=== PATIENT | male | born 1950 | race Caucasian/White ===

== ENCOUNTER → 2018-03-09 07:08 | Outpatient (CLI) | payer BC, SELFPAY ==
[2018-03-09 10:43] LABS: ALB/GLOB Ratio 0.9 RATIO (0.9-2.4); AST(SGOT) 19 U/L (15-37); Alanine Aminotransfer ALT/SGPT 30 U/L (16-61); Albumin, Serum 3.5 g/dL (3.2-5.0); Alkaline Phosphatase 72 U/L (45-117); Anion Gap 9 (5-15); BUN 23 mg/dL (7-18); BUN/Creat Ratio 17.8 RATIO (10-20); Calcium,Total 8.3 mg/dL (8.5-10.1); Chloride 104 mmol/L (98-107); Cholesterol 225 mg/dL (200); Creatinine, Serum 1.29 mg/dL (0.70-1.30); EST Glomerular Filtration Rate 59 mL/min (>60); Est Glom Filt Rate - Afr Amer 71 mL/min (>60); Globulin 3.7 g/dL (2.2-4.2); Glucose 98 mg/dL (74-106); High Density Lipoprotein 58 mg/dL; PSA,Total - Annual Screen 1.54 ng/mL (0.00-4.00); Potassium 3.6 mmol/L (3.5-5.1); Protein, Total 7.2 g/dL (6.4-8.2); Sodium Level 138 mmol/L (136-145); Triglycerides 183 mg/dL; Very Low Density Lipoprotein 37 mg/dL (5-40)
== END ==
PROVIDERS: Family Provider Family Medicine; PCP Family Medicine; Referring Provider Family Medicine; Visit Provider Family Medicine
DX: E78.5 Hyperlipidemia, unspecified (principal); Z12.5 Encounter for screening for malignant neoplasm of prostate
CPT/HCPCS: 36415; 80053; 80061; 84153; G0103

== ENCOUNTER → 2018-07-12 | Outpatient (CLI) | payer BC, SELFPAY ==
[2018-07-12 10:13] LABS: Hematocrit 34.8 % (40-54); Hemoglobin 11.4 g/dl (13.0-16.5); Mean Corp Hgb Conc 32.8 g/gl (32-36); Mean Corpuscular Hgb 31.6 pg (27.0-32.0); Mean Corpuscular Volume 96.4 fL (80-94); Mean Platelet Vol. 10.2 fl (6.2-12.0); Platelet Count 356 K/mm3 (150-450); RBC Distribution Width CV 13.9 % (11.6-14.6); RBC Distribution Width SD 47.6 fl (35.1-43.9); Red Blood Count 3.61 M/mm3 (4.6-6.2); White Blood Count 7.7 K/mm3 (4.4-11.0)
[2018-07-12 10:14] LABS: Scan Indicated on CBC? Y/N NO
[2018-07-12 10:33] LABS: Anion Gap 9 (5-15); BUN 24 mg/dL (7-18); BUN/Creat Ratio 22.4 RATIO (10-20); Calcium,Total 8.7 mg/dL (8.5-10.1); Chloride 102 mmol/L (98-107); Creatinine, Serum 1.07 mg/dL (0.70-1.30); EST Glomerular Filtration Rate 73 mL/min (>60); Est Glom Filt Rate - Afr Amer 88 mL/min (>60); Glucose 89 mg/dL (74-106); Potassium 3.9 mmol/L (3.5-5.1); Sodium Level 139 mmol/L (136-145)
== END | disposition home or self-care (01) ==
PROVIDERS: Family Provider Family Medicine; PCP Family Medicine
DX: Z87.19 Personal history of other diseases of the digestive system (principal); Z86.2 Personal history of diseases of the blood and blood-forming organs and certain disorders involving the immune mechanism
CPT/HCPCS: 36415; 80048; 85027

== ENCOUNTER → 2019-05-25 07:07 | Outpatient (CLI) | payer BC, SELFPAY ==
[2019-05-25 10:18] LABS: Hematocrit 45.5 % (40-54); Hemoglobin 14.9 g/dL (13.0-16.5); Mean Corp Hgb Conc 32.7 g/dL (32-36); Mean Corpuscular Hgb 31.8 pg (27.0-32.0); Mean Corpuscular Volume 97.2 fL (80-94); Mean Platelet Vol. 11.5 fl (6.2-12.0); Platelet Count 238 K/mm3 (150-450); RBC Distribution Width CV 13.2 % (11.6-14.6); RBC Distribution Width SD 46.7 fl (35.1-43.9); Red Blood Count 4.68 M/mm3 (4.6-6.2); White Blood Count 7.6 K/mm3 (4.4-11.0)
[2019-05-25 10:39] LABS: AST(SGOT) 13 U/L (15-37); Alanine Aminotransfer ALT/SGPT 24 U/L (16-61); Albumin, Serum 3.6 g/dL (3.2-5.0); Alkaline Phosphatase 76 U/L (45-117); Anion Gap 6 (5-15); BUN 20 mg/dL (7-18); BUN/Creat Ratio 18.3 RATIO (10-20); Calcium,Total 8.5 mg/dL (8.5-10.1); Chloride 105 mmol/L (98-107); Cholesterol 156 mg/dL (200); Creatinine, Serum 1.09 mg/dL (0.70-1.30); EST Glomerular Filtration Rate 71 mL/min (>60); Est Glom Filt Rate - Afr Amer 86 mL/min (>60); Globulin 3.7 g/dL (2.2-4.2); Glucose 103 mg/dL (74-106); High Density Lipoprotein 57 mg/dL; PSA,Total - Annual Screen 1.35 ng/mL (0.00-4.00); Potassium 3.8 mmol/L (3.5-5.1); Protein, Total 7.3 g/dL (6.4-8.2); Sodium Level 140 mmol/L (136-145); Triglycerides 114 mg/dL; Very Low Density Lipoprotein 23 mg/dL (5-40)
== END ==
PROVIDERS: PCP Family Medicine; Referring Provider Family Medicine; Visit Provider Family Medicine
DX: I10 Essential (primary) hypertension (principal); Z12.5 Encounter for screening for malignant neoplasm of prostate; E78.5 Hyperlipidemia, unspecified; Z87.19 Personal history of other diseases of the digestive system
CPT/HCPCS: 36415; 80053; 80061; 84153; 85027; G0103

== ENCOUNTER → 2020-06-14 05:44 | Outpatient (CLI) | payer BC, SELFPAY ==
--- NOTE | 2020-06-14 10:07 | STRESSREP_ITS ---
Stress Test Report Date: 06-14-2020 Procedure: Exercise tolerance test/imaging study Indications: This of breath/dyspnea on exertion; fatigue Consent: Per the patient Procedure: The patient exercised on a Brayden protocol for 6 minutes completing Stage II achieving a peak heart rate of 129 bpm (86% predicted maximal heart rate) with a peak blood pressure 194/68 mmHg and a peak MET capacity of 7 METs. The baseline ECG demonstrated. The peak exercise ECG demonstrated somatic/motion artifact with no obvious ECG changes. There was a relatively rare PVC during exercise and recovery and a relatively rare PAC in recovery. The functional capacity was considered average. There was no complaint of chest discomfort during exercise or recovery. The examination was discontinued secondary to dyspnea. Impression: 1. Technically adequate (percent predicted maximal heart rate greater than 85%) exercise tolerance test 2. Peak exercise ECG with somatic/motion artifact with no obvious ECG changes 3. There was a relatively rare PVC during exercise and recovery and a relatively rare PAC in recovery 4. Nuclear images pending Myocardial perfusion imaging study: Technique: The patient was injected with 11.9 mCi of technetium 99m Cardiolite and subsequently rest SPECT Cardiolite nuclear imaging was obtained in the horizontal long, vertical long, and short axis views. The patient exercised on a Brayden protocol for 6 minutes completing Stage II achieving a peak heart rate of 129 bpm (86% predicted maximal heart rate) with a peak blood pressure 194/68 mmHg and a peak MET capacity of 7 METs. The patient was injected with 34.6 mCi of technetium 99m Cardiolite and subsequently stress SPECT Cardiolite nuclear imaging was obtained in the horizontal long, vertical long, and short axis views. A gated Cardiolite study at peak stress was not obtained. Interpretation: Rest and stress SPECT Cardiolite nuclear imaging status post realignment, no rmalization, and attenuation correction, demonstrates the appearance of relative uniform tracer uptake and myocardial perfusion appearing within normal limits. The gated Cardiolite study was not obtained. Impression: 1. Rest and stress SPECT Cardiolite nuclear imaging demonstrate relative uniform tracer uptake and myocardial perfusion appearing within normal limits. 2. The gated Cardiolite study was not obtained. This note was generated with CloSysation software. It may contain incorrect words, spelling, and punctuation that were not noted in checking the note before signing.
== END ==
PROVIDERS: PCP Family Medicine; Referring Provider Family Medicine; Visit Provider Family Medicine
DX: R06.00 Dyspnea, unspecified (principal)
CPT/HCPCS: 78452; 93017; A9500

== ENCOUNTER → 2020-09-17 07:20 | Outpatient (CLI) | payer BC, SELFPAY ==
[2020-09-17 10:26] LABS: AST(SGOT) 19 U/L (15-37); Alanine Aminotransfer ALT/SGPT 31 U/L (16-61); Albumin, Serum 3.7 g/dL (3.2-5.0); Alkaline Phosphatase 68 U/L (45-117); Anion Gap 4 (5-15); BUN 19 mg/dL (7-18); BUN/Creat Ratio 19.3 RATIO (10-20); Calcium,Total 8.6 mg/dL (8.5-10.1); Chloride 106 mmol/L (98-107); Cholesterol 152 mg/dL (200); Creatinine, Serum 0.98 mg/dL (0.70-1.30); EST Glomerular Filtration Rate 80 mL/min (>60); Est Glom Filt Rate - Afr Amer 97 mL/min (>60); Globulin 3.8 g/dL (2.2-4.2); Glucose 89 mg/dL (74-106); High Density Lipoprotein 43 mg/dL; PSA,Total - Annual Screen 1.15 ng/mL (0.00-4.00); Potassium 3.8 mmol/L (3.5-5.1); Protein, Total 7.5 g/dL (6.4-8.2); Sodium Level 138 mmol/L (136-145); Triglycerides 124 mg/dL; Very Low Density Lipoprotein 25 mg/dL (5-40)
== END ==
PROVIDERS: PCP Family Medicine; Referring Provider Family Medicine; Visit Provider Family Medicine
DX: E78.5 Hyperlipidemia, unspecified (principal); N40.0 Benign prostatic hyperplasia without lower urinary tract symptoms
CPT/HCPCS: 36415; 80053; 80061; 84153; G0103

== ENCOUNTER → 2020-10-31 07:58 | Outpatient (CLI) | payer BC, SELFPAY ==
--- NOTE | 2020-10-31 16:27 | PFTCOMP_ITS ---
COMPLETE PULMONARY FUNCTION TEST INTERPRETATION Brief HPI: Patient is a 70 year old male, currently under the care of Dr. Saenz, who presents to [facility] for complete pulmonary function tests secondary to diagnosis of bradycardia. Respiratory therapist reports good effort and reproducible results. Interpretation: Forced expiration spirometry shows a mild large airways obstructive ventilatory defect with an FEV1 of 100% predicted. There is no significant bronchodilator response by strict ATS criteria. Spirograms are of good quality and plateau slowly, indicating slowly emptying areas of the lungs. The respiratory flow volume loop shows decreased expiratory flow rates at all lung volumes consistent with airway obstruction. Lung volumes by body plethysmography show an elevated total lung capacity at 6.96 L, 121% predicted. All other lung volumes are increased symmetrically. Diffusion capacity by carbon monoxide is elevated at 123% predicted. The airway resistance is normal. No previous pulmonary function tests were available for review. Impression: Technically an irreversible mild large airways obstructive ventilatory defect. However, patient barely misses reversibility by ATS criteria. Could consider a bronchoprovocation study if asthma is suspected.
== END ==
PROVIDERS: PCP Family Medicine; Referring Provider Family Medicine; Visit Provider Family Medicine
DX: R00.1 Bradycardia, unspecified (principal)
CPT/HCPCS: 94060; 94726; 94729

== ENCOUNTER → 2021-07-05 | Outpatient (CLI) | payer BC, SELFPAY ==
[2021-07-05 10:35] LABS: Hematocrit 48.4 % (40-54); Hemoglobin 16.6 g/dL (13.0-16.5); Mean Corp Hgb Conc 34.3 g/dL (32-36); Mean Corpuscular Hgb 33.1 pg (27.0-32.0); Mean Corpuscular Volume 96.4 fL (80-94); Mean Platelet Vol. 11.2 fl (6.2-12.0); Platelet Count 313 K/mm3 (150-450); RBC Distribution Width CV 13.6 % (11.6-14.6); RBC Distribution Width SD 48.3 fl (35.1-43.9); Red Blood Count 5.02 M/mm3 (4.6-6.2); White Blood Count 5.9 K/mm3 (4.4-11.0)
[2021-07-05 10:52] LABS: Estradiol 35.3 pg/mL; Free T3 2.5 pg/mL (2.18-3.98); T4 Free Direct 0.72 ng/dL (0.76-1.46); Thyroid Stim Hormone (TSH) 1.82 uIU/mL (0.358-3.74)
[2021-07-05 13:41] LABS: T4 Total, Thyroxin 7.1 ug/dL (4.5-12.1)
[2021-07-10 11:09] LABS: Testosterone, Free 19.44 ng/dL (5.00-21.00)
[2021-07-10 16:53] LABS: Testosterone, % Free 1.88 % (1.50-4.20); Testosterone, Total 1034 ng/dL (264-916)
== END | disposition home or self-care (01) ==
PROVIDERS: PCP Family Medicine
DX: R68.82 Decreased libido (principal); E07.9 Disorder of thyroid, unspecified; E29.1 Testicular hypofunction; R53.83 Other fatigue
CPT/HCPCS: 36415; 82670; 84402; 84403; 84436; 84439; 84443; 84481; 85027

== ENCOUNTER → 2021-08-07 | Outpatient (CLI) | payer BC, SELFPAY ==
--- NOTE | 2021-08-07 16:49 | RAD_ITS ---
STUDY: X-RAY - LUMBOSACRAL SPINE REASON FOR EXAM: Male, 70 years old. PAIN TECHNIQUE: 6 view(s) of the lumbosacral spine were obtained. COMPARISON: 11/02/2015 FINDINGS: Normal lumbar lordosis. There is no substantial scoliosis. 2 mm of anterolisthesis of L4 and L5 which is unchanged on the flexion and extension views. Normal vertebral bodies and endplates. Normal disc space heights. Facet hypertrophy in the lower lumbar spine. Normal bilateral sacral ala, sacroiliac joints, and visualized sacrum. Normal visualized soft tissue structures. RAD/L/S Spine w Bend Min 6 Vw IMPRESSION: Degenerative disc disease with 2 mm of anterolisthesis of L4 on L5 which is unchanged on the flexion and extension views. Electronically Signed: Jesus Chris MD at 17:14 EDT ,
== END | disposition home or self-care (01) ==
LOC: MTRAD 16:48
PROVIDERS: PCP Family Medicine; Referring Provider Family Medicine; Visit Provider Family Medicine
DX: M54.9 Dorsalgia, unspecified (principal)
CPT/HCPCS: 72114

== ENCOUNTER 2021-08-17 08:10 | Emergency (ER) | payer BC, SELFPAY ==
[2021-08-17 08:11] VITALS: BP 151/78; PULSE 84; RESP 16; TEMP 36.8; O2SAT 99; BMI 34.3
[2021-08-17 08:22] VITALS: TEMP 37.2
--- NOTE | 2021-08-17 08:45 | EX.ED.DYSGE1 ---
HPI History of Present Illness Chief Complaint: Weakness Narrative Narrative: This is a 70-year-old male presenting because he was told he was in third-degree heart block. He is currently wearing a Holter monitor because his heart rate goes into the 30s and 40s when he sleeps. He states he noted this was a problem years ago when he was admitted to [facility] with a GI bleed. They noted when he fell asleep his heart rate went low. They were supposed to set him up with a Holter monitor but it never occurred. Patient states he bought a home pulse oximeter which was showing his heart rate was low and then when he spoke with Dr. Cooley he decided to wear Holter monitor. He states he wore this a couple of weeks ago for 7 days and he just got the results and was told to come to the ER last night however he was too busy working and decided to come this morning. He states he does not have any chest pain and he states that he only gets short of breath when he works too hard. Not had any fevers or coughs. He is not lightheaded. He states he feels otherwise well. He denies cardiac history and states he had a stress test 2 years ago which was normal. [facility] Medical History HLD (hyperlipidemia) HTN (hypertension) Prostate enlargement Home Medications amlodipine 10 mg tablet 10 mg PO DAILY 08/17/21 [History Last Taken Unknown] atorvastatin 20 mg tablet 20 mg PO DAILY 08/17/21 [History Last Taken Unknown] finasteride 5 mg tablet 5 mg PO DAILY 08/17/21 [History Last Taken Unknown] hydrochlorothiazide 25 mg tablet 25 mg PO DAILY 08/17/21 [History Last Taken Unknown] losartan 100 mg tablet 100 mg PO DAILY 08/17/21 [History Last Taken Unknown] testosterone 75 mg implant pellet 75 mg implant QMONTH 08/17/21 [History Last Taken Unknown] Allergy/AdvReac Type Severity Reaction Status Date / Time No Known Allergies Allergy Verified 08/17/21 08:10 Social History Smoking Status: Light Smoker (<10/day) ROS ROS ED Constitutional Constitutional ED: Denies chills, subjective or sweats Eyes Eyes: Denies blurry vision or change in vision ENT ENT ED: Denies rhinorrhea or sore throat Cardiovascular Cardiovascular: Denies chest pain or palpitations Respiratory/Chest Respiratory/Chest: Denies cough or dyspnea Gastrointestinal Gastrointestinal: Denies abdominal pain or constipation Genitourinary Genitourinary ED: Denies dysuria or hematuria Neurologic Neurologic: Denies headache(s) or paresthesias Psychiatric Psychiatric: Denies anxiety or depression Endocrine Endocrinology: Denies cold intolerance or heat intolerance EXAM Physical Exam Const Vital Signs: 08/17/21 08:11 08/17/21 08:22 08/17/21 08:36 Temperature 98.3 F 98.9 F Temperature Source Temporal Temporal Pulse Rate 84 Respiratory Rate 16 Respiratory Effort Normal Non-Labored Blood Pressure 151/78 H Blood Pressure Mean 102 Pulse Ox 99 Oxygen Delivery Method Room Air 08/17/21 08:55 08/17/21 11:01 Temperature 98.7 F Temperature Source Temporal Pulse Rate 78 Respiratory Rate 16 Respiratory Effort Blood Pressure 142/78 H Blood Pressure Mean 99 Pulse Ox 97 98 Oxygen Delivery Method Room Air Room Air Positive well nourished General Appearance ED: NAD; Negative for pallor HEENT Reports moist mucous membranes Negative for trauma Eyes PERRL and EOMs intact bilaterally General Eye ED: Negative for pale conjunctiva or scleral icterus Chest Wall inspection of chest normal Resp normal respiratory effort and clear to auscultation bilaterally Auscultation: Negative for rales, rhonchi or wheezes Cardio regular rate and regular rhythm GI normal to inspection, nondistended, normoactive bowel sounds Extremity General Extremety ED: Negative for edema or tenderness General Extremity: Negative for edema Neuro oriented x3 and CN's II-XII intact bilaterally Sensorium / Orientation: alert and orientation impaired Motor Exam: strength 5/5 throughout Psych mental status grossly normal Skin no rashes or lesions noted General Skin Exam: Negative for jaundice or pallor MDM MDM MDM Narrative Medical decision making narrative: 70-year-old male presenting out of concern for possible third-degree heart block on his Holter monitor from a couple weeks ago. He is not describing to me any weakness, shortness of breath, chest pain, lightheadedness, near syncopal events. His CBC and BMP are unremarkable. He has initial high sensitive troponin of 4 and another 1 at 5 2 hours apart. His EKG is sinus rhythm with a ventricular rate of 84 bpm with a first-degree AV block with a MI interval of 268. QTc 434. Chest x-ray on my interpretation shows no acute cardiopulmonary process and the radiologist does agree. I spoke to his primary care doctor who stated that he did have a note from somebody stating that they believed he was going into second and third-degree heart block at times although the patient has not reported to me any times when he felt lightheaded, weak, near syncopal or had any chest pain. I spoke with Dr. Goins regarding the patient and we went through his medicine list and his history together. She felt that he did not need to be admitted to the hospital and that there were other reasons that could possibly affect his Holter monitor especially if it was happening at night. She states that he will need a stress test and an echocardiogram and a cardiology follow-up and took his name and number to pass along to Dr. Manuel for follow-up next week. He was amenable to this. He was given return precautions. Patient stable for discharge. Impression: 1. First-degree AV block Lab Data Labs: Laboratory Results - last 24 hr 08/17/21 08/17/21 08/17/21 08:30 08:30 11:20 WBC 7.4 RBC 5.08 Hgb 16.0 Hct 47.4 MCV 93.3 MCH 31.5 MCHC 33.8 RDW Std Deviation 43.7 RDW Coeff of Dulce 12.7 Plt Count 221 MPV 11.2 Immature Gran % (Auto) 0.300 Neut % (Auto) 60.8 Lymph % (Auto) 22.2 [place] % (Auto) 10.5 H Eos % (Auto) 5.4 H Baso % (Auto) 0.8 Absolute Neuts (auto) 4.5 Absolute Lymphs (auto) 1.63 Nucleated RBC % 0 Sodium 139 Potassium 3.7 Chloride 108 H Carbon Dioxide 25.0 Anion Gap 6 BUN 31 H Creatinine 0.99 Estim Creat Clear Calc 60.86 Est GFR (MDRD) Af Amer 95 Est GFR (MDRD) Non-Af 79 BUN/Creatinine Ratio 31.3 H Glucose 103 Calcium 8.6 Troponin I High Sens 4 5 Radiography Diagnostic Testing: Clinical Impression(s) from Imaging Studies Chest X-Ray 08/17/21 08:54 IMPRESSION: Mild left basilar atelectasis. Electronically Signed: Annie Keita MD at 9:16 EDT , Discharge Plan Triage Chief Complaint: Weakness ED Provider: Blayne Sosa Dx/Rx/DC Orders Instructions: Heart Block 1st Degree Prescriptions: No Action atorvastatin 20 mg Tablet 20 mg PO DAILY testosterone 75 mg Pellet 75 mg implant QMONTH amlodipine 10 mg Tablet 10 mg PO DAILY hydrochlorothiazide 25 mg Tablet 25 mg PO DAILY losartan 100 mg Tablet 100 mg PO DAILY finasteride 5 mg Tablet 5 mg PO DAILY Primary Care Provider: Jesus Cooley Referrals: James Manuel MD [STAFF PHYSICIAN] - As soon as possible Jesus Cooley MD [Primary Care Provider] - Disposition Disposition: Home, Self Care
--- NOTE | 2021-08-17 08:54 | EKG12_ITS ---
Test Reason : IRREGULAR HEARTBEAT Blood Pressure : / mmHG Vent. Rate : 084 BPM Atrial Rate : 084 BPM P-R Int : 268 ms QRS Dur : 084 ms QT Int : 368 ms P-R-T Axes : 043 050 025 degrees QTc Int : 434 ms Sinus rhythm with 1st degree A-V block Low voltage QRS Borderline ECG Confirmed by CIARAN MARCANO, TRAMAINE ([id number]), field map editor CORIE VALERA ([id number]) on 08/19/2021 12:47:21 PM Referred By: RAJIV Confirmed By:TRAMAINE WAGONER MD
--- NOTE | 2021-08-17 08:54 | RAD_ITS ---
HISTORY: chest pain. TECHNIQUE: XR Chest 1 View. COMPARISON: 08/07/2014. FINDINGS: CARDIOMEDIASTINAL BORDERS: Cardiac silhouette within normal limits in size. Mediastinal contour unremarkable. LUNGS: Minimal linear opacity in the left lung base. PLEURA: No pleural effusion or pneumothorax seen. OSSEOUS STRUCTURES: Unremarkable. RAD/Chest 1 View (Portable) IMPRESSION: Mild left basilar atelectasis. Electronically Signed: Annie Keita MD at 9:16 EDT ,
[2021-08-17 08:55] VITALS: O2SAT 97
[2021-08-17 09:07] LABS: Absolute Lymphocyte Count 1.63 X10^3/uL (0.83-4.51); Absolute Neutrophil Count 4.5 X10^3/uL (2.0-7.7); Basophil# 0.06 X10^3/uL; Basophil% 0.8 % (0-1); Eosinophils% 5.4 % (0-5); Hematocrit 47.4 % (40-54); Lymphocyte # 1.63 X10^3/ul (0.83-4.51); Lymphocyte % 22.2 % (19-41); Mean Corp Hgb Conc 33.8 g/dL (32-36); Mean Corpuscular Hgb 31.5 pg (27.0-32.0); Mean Corpuscular Volume 93.3 fL (80-94); Mean Platelet Vol. 11.2 fl (6.2-12.0); Monocyte# 0.77 X10^3/uL; Monocyte% 10.5 % (0-10); NRBC Flagged by Analyzer 0 % (0-5); Neutrophil # 4.47 X10^3/uL (2.7-7.7); Neutrophil % 60.8 % (47-70); Platelet Count 221 K/mm3 (150-450); RBC Distribution Width CV 12.7 % (11.6-14.6); RBC Distribution Width SD 43.7 fl (35.1-43.9); Red Blood Count 5.08 M/mm3 (4.6-6.2); White Blood Count 7.4 K/mm3 (4.4-11.0)
[2021-08-17 09:23] LABS: Anion Gap 6 (5-15); BUN 31 mg/dL (7-18); BUN/Creat Ratio 31.3 RATIO (10-20); Calcium,Total 8.6 mg/dL (8.5-10.1); Chloride 108 mmol/L (98-107); Creatinine, Serum 0.99 mg/dL (0.70-1.30); EST Glomerular Filtration Rate 79 mL/min (>60); Est Glom Filt Rate - Afr Amer 95 mL/min (>60); Estimated Creatinine Clearance 60.86 ml/min; Glucose 103 mg/dL (74-106); Potassium 3.7 mmol/L (3.5-5.1); Sodium Level 139 mmol/L (136-145); Troponin-I HS (w/2H Reflex) 4 pg/mL (3.0-78.0)
[2021-08-17 11:00] LABS: Reflex Troponin-HS? (from REC) Y
[2021-08-17 11:01] VITALS: BP 142/78; PULSE 78; RESP 16; TEMP 37.1; O2SAT 98
[2021-08-17 11:40] LABS: Troponin-I HS 5 pg/mL (3.0-78.0)
[2021-08-17 12:22] VITALS: BP 147/82; PULSE 84; RESP 16; O2SAT 96
== END 2021-08-17 12:22 | disposition home or self-care (01) ==
PROVIDERS: Emergency Provider Student in an Organized Health Care Education/Training Program; PCP Family Medicine; Visit Provider Student in an Organized Health Care Education/Training Program
DX: I44.0 Atrioventricular block, first degree (principal); E78.5 Hyperlipidemia, unspecified; R53.1 Weakness; I10 Essential (primary) hypertension; F17.200 Nicotine dependence, unspecified, uncomplicated
CPT/HCPCS: 71045; 80048; 84484; 85025; 93005; 99284; A4216

== ENCOUNTER → 2021-08-30 | Outpatient (CLI) | payer BC, SELFPAY ==
[2021-08-30 10:09] LABS: Hematocrit 50.5 % (40-54); Hemoglobin 16.8 g/dL (13.0-16.5); Mean Corp Hgb Conc 33.3 g/dL (32-36); Mean Corpuscular Hgb 31.7 pg (27.0-32.0); Mean Corpuscular Volume 95.3 fL (80-94); Mean Platelet Vol. 11.6 fl (6.2-12.0); Platelet Count 245 K/mm3 (150-450); RBC Distribution Width CV 13.3 % (11.6-14.6); RBC Distribution Width SD 46.5 fl (35.1-43.9); White Blood Count 7.1 K/mm3 (4.4-11.0)
[2021-08-30 10:35] LABS: Microalbumin,Random Urine 48.2 mg/L (NO RANGE EST.)
[2021-08-30 10:37] LABS: AST(SGOT) 14 U/L (15-37); Alanine Aminotransfer ALT/SGPT 19 U/L (16-61); Albumin, Serum 3.6 g/dL (3.2-5.0); Alkaline Phosphatase 66 U/L (45-117); Anion Gap 10 (5-15); BUN 18 mg/dL (7-18); Calcium,Total 8.6 mg/dL (8.5-10.1); Chloride 106 mmol/L (98-107); Cholesterol 163 mg/dL (200); EST Glomerular Filtration Rate 78 mL/min (>60); Est Glom Filt Rate - Afr Amer 94 mL/min (>60); Free T3 2.4 pg/mL (2.18-3.98); Globulin 3.5 g/dL (2.2-4.2); Glucose 83 mg/dL (74-106); High Density Lipoprotein 44 mg/dL; Potassium 3.5 mmol/L (3.5-5.1); Protein, Total 7.1 g/dL (6.4-8.2); Sodium Level 139 mmol/L (136-145); T4 Free Direct 0.76 ng/dL (0.76-1.46); Thyroid Stim Hormone (TSH) 4.29 uIU/mL (0.358-3.74); Triglycerides 103 mg/dL; Very Low Density Lipoprotein 21 mg/dL (5-40)
== END | disposition home or self-care (01) ==
LOC: MTLAB 07:13
PROVIDERS: PCP Family Medicine; Referring Provider Family Medicine; Visit Provider Family Medicine
DX: Z00.00 Encounter for general adult medical examination without abnormal findings (principal); R79.89 Other specified abnormal findings of blood chemistry; E78.5 Hyperlipidemia, unspecified
CPT/HCPCS: 36415; 80053; 80061; 82043; 84403; 84439; 84443; 84481; 85027

== ENCOUNTER → 2021-10-18 | Outpatient (CLI) | payer BC, SELFPAY ==
--- NOTE | 2021-10-18 10:12 | ECHOCS_ITS ---
Reason For Study: MURMUR Procedure This was a 2D Doppler, Color Flow transthoracic echocardiogram. Exam performed in department. Left Ventricle Normal LV size. Left ventricular systolic function is normal. The estimated ejection fraction is 60 %. Stage 1 diastolic dysfunction. No regional wall motion abnormalities noted. Right Ventricle Normal RV size. Normal systolic function. Atria Normal left atrium. Normal right atrium. Mitral Valve Normal mitral valve. Tricuspid Valve Normal tricuspid valve. Aortic Valve The aortic valve is not well visualized. Pulmonic Valve Normal pulmonic valve. Great Vessels Normal aortic root. The pulmonary artery is normal size. Normal inferior vena cava. Pericardium/Pleural No pericardial effusion. MMode/2D Measurements & Calculations LVIDd: 3.2 cm IVSd: 1.3 cm Ao root diam: 3.7 cm LVIDs: 2.3 cm LVPWd: 1.4 cm RVDd: 4.6 cm FS: 27.3 % LAV(MOD-bp): 43.5 ml LVAd ap4: 33.5 cm2 SV(MOD-sp4): 57.6 ml LAV(MOD-bp) Indexed: 21.2 ml/m2 LVLd ap4: 9.9 cm LAV(MOD-sp2): 42.2 ml EDV(MOD-sp4): 93.1 ml LAV(MOD-sp4): 40.8 ml EDV(sp4-el): 96.4 ml LVAs ap4: 18.7 cm2 LVLs ap4: 8.3 cm ESV(MOD-sp4): 35.5 ml ESV(sp4-el): 35.6 ml EF(MOD-sp4): 61.9 % EF(sp4-el): 63.1 % SV(sp4-el): 60.8 ml LA A4 area: 16.8 cm2 LA dimension(2D): 4.3 cm RA A4 area: 17.3 cm2 Time Measurements MV dec time: 0.19 sec Doppler Measurements & Calculations MV E max nick: 74.1 cm/sec Lat Peak E' Nick: 14.5 cm/sec Med Peak E' Nick: 10.5 cm/sec MV A max nick: 75.3 cm/sec E/E' lat: 5.1 E/E' med: 7.1 MV E/A: 0.98 MV V2 max: 77.1 cm/sec Ao V2 max: 122.8 cm/sec MV max P.4 mmHg MV dec slope: 401.3 cm/sec2 Ao max P.1 mmHg MV V2 mean: 49.1 cm/sec Ao V2 mean: 87.1 cm/sec MV mean P.1 mmHg Ao mean P.4 mmHg MV V2 VTI: 23.9 cm Ao V2 VTI: 26.6 cm LV V1 max: 80.3 cm/sec PA V2 max: 101.1 cm/sec LV V1 max P.6 mmHg LV V1 mean P.6 mmHg LV V1 mean: 59.8 cm/sec LV V1 VTI: 18.7 cm ECHO/Echo Complete W/ Contrast Interpretation Summary Normal LV size. Left ventricular systolic function is normal. The estimated ejection fraction is 60 %. Stage 1 diastolic dysfunction. Contrast injection was performed. Ordering Physician: Jaems Manuel Referring Physician: James Manuel Performed By: Emerald Ogden RCS
== END | disposition home or self-care (01) ==
PROVIDERS: PCP Family Medicine; Referring Provider Internal Medicine Cardiovascular Disease; Visit Provider Internal Medicine Cardiovascular Disease
DX: I44.1 Atrioventricular block, second degree (principal); I10 Essential (primary) hypertension
CPT/HCPCS: 93225; 93226; 93306; Q9957; A4216; C8929

== ENCOUNTER → 2021-10-29 | Outpatient (CLI) | payer BC, SELFPAY ==
[2021-10-29 10:55] LABS: PSA,Total - Annual Screen 2.02 ng/mL (0.00-4.00)
[2021-10-31 11:16] LABS: T4 Free Direct 0.71 ng/dL (0.76-1.46); Thyroid Stim Hormone (TSH) 4.09 uIU/mL (0.358-3.74)
== END | disposition home or self-care (01) ==
LOC: MTLAB 07:34
PROVIDERS: PCP Family Medicine; Referring Provider Family Medicine; Visit Provider Family Medicine
DX: R79.89 Other specified abnormal findings of blood chemistry (principal); E29.1 Testicular hypofunction; N52.9 Male erectile dysfunction, unspecified; N40.0 Benign prostatic hyperplasia without lower urinary tract symptoms
CPT/HCPCS: 36415; 84153; 84439; 84443; G0103

== ENCOUNTER → 2021-11-11 | Outpatient (CLI) | payer BC, SELFPAY | END | disposition home or self-care (01) | LOC: MTLAB 07:23 | PROVIDERS: PCP Family Medicine; Referring Provider Family Medicine; Visit Provider Family Medicine | DX: R79.89 Other specified abnormal findings of blood chemistry (principal) | CPT/HCPCS: 36415; 84403 ==

== ENCOUNTER → 2022-03-06 | Outpatient (CLI) | payer BC, SELFPAY | END | disposition home or self-care (01) | LOC: PSN 08:18 | PROVIDERS: PCP Family Medicine; Visit Provider Physician Assistant Medical | DX: I44.1 Atrioventricular block, second degree (principal) | CPT/HCPCS: 93225; 93226 ==

== ENCOUNTER → 2022-03-11 | Outpatient (CLI) | payer BC, SELFPAY | END | disposition home or self-care (01) | LOC: LABSPEC 12:15 | PROVIDERS: PCP Family Medicine; Referring Provider Family Medicine; Visit Provider Family Medicine | DX: R31.9 Hematuria, unspecified (principal) | CPT/HCPCS: 87086 ==

== ENCOUNTER → 2022-03-13 | Outpatient (CLI) | payer BC, SELFPAY ==
--- NOTE | 2022-03-13 10:26 | RAD_ITS ---
STUDY: X-RAY - ABDOMEN/PELVIS REASON FOR EXAM: Male, 71 years old. Hematuria. TECHNIQUE: Two AP supine views of the abdomen and pelvis. COMPARISON: None. FINDINGS: Normal visualized lung bases. There is an unremarkable bowel gas pattern. There is no demonstrated free abdominal air. The visualized liver, spleen and kidneys are grossly normal in size and morphology. There is a 3 mm calcification overlying the lower pole of the left kidney. No other calcifications are noted. Phleboliths are seen in the pelvis. Normal visualized osseous structures. RAD/Abdomen Single View IMPRESSION: Question left lower pole renal calculus. There is no acute intra-abdominal or pelvic process Electronically Signed: Huseyin Vaughn DO at 23:21 EST ,
[2022-03-13 11:05] LABS: Anion Gap 9 (5-15); BUN 31 mg/dL (7-18); BUN/Creat Ratio 27.9 RATIO (10-20); Calcium,Total 8.7 mg/dL (8.5-10.1); Chloride 103 mmol/L (98-107); Creatinine, Serum 1.11 mg/dL (0.70-1.30); EST Glomerular Filtration Rate 69 mL/min (>60); Est Glom Filt Rate - Afr Amer 83 mL/min (>60); Free T3 2.8 pg/mL (2.18-3.98); Glucose 93 mg/dL (74-106); Sodium Level 137 mmol/L (136-145); T4 Free Direct 0.83 ng/dL (0.76-1.46); Thyroid Stim Hormone (TSH) 3.58 uIU/mL (0.358-3.74)
== END | disposition home or self-care (01) ==
PROVIDERS: PCP Family Medicine; Referring Provider Family Medicine; Visit Provider Family Medicine
DX: R31.9 Hematuria, unspecified (principal); I87.8 Other specified disorders of veins; N28.89 Other specified disorders of kidney and ureter; E03.9 Hypothyroidism, unspecified; I10 Essential (primary) hypertension
CPT/HCPCS: 36415; 74018; 80048; 84439; 84443; 84481

== ENCOUNTER 2022-03-15 20:59 | Emergency (ER) | payer BC, SELFPAY ==
[2022-03-15 21:00] VITALS: BP 221/83; PULSE 107; RESP 18; TEMP 36.2; O2SAT 100; BMI 35.5
[2022-03-15 22:14] LABS: Bacteria 0 SEEN /hpf (None Seen); Mucous, Urine 0 SEEN /hpf (<or=2+)
[2022-03-15 22:18] LABS: Color, Urine Yellow (Yellow); Glucose, Dipstick Normal (Normal); Ketone-Dipstick Negative (Negative); Leukocyte Esterase-Dipstick 25 /ul (Negative); Nitrite-Dipstick Negative (Negative); Occult Blood-Urine 250 /ul (Negative); Protein-Dipstick 30 mg/dl (Negative); Specific Gravity, Urine 1.015 (1.002-1.030); Urine Bilirubin Dipstick Negative (Negative); Urine Clarity Sl. Cloudy (Clear); Urine Urobilinogen Normal (Normal)
[2022-03-15 22:28] LABS: Amorphous Sediment 1+ URATE; Red Blood Cells-Urine 10-25 SEEN /hpf (0-5); Squamous Epithelial Cells - UA 0-5 SEEN /hpf (0-5); White Blood Cells 0-5 SEEN /hpf (0-5)
[2022-03-15 22:33] LABS: Absolute Lymphocyte Count 0.94 X10^3/uL (0.83-4.51); Absolute Neutrophil Count 6.3 X10^3/uL (2.0-7.7); Basophil# 0.06 X10^3/uL; Basophil% 0.7 % (0-1); Eosinophil# 0.48 X10^3/uL; Eosinophils% 5.6 % (0-5); Hematocrit 48.8 % (40-54); Hemoglobin 16.6 g/dL (13.0-16.5); Lymphocyte # 0.94 X10^3/ul (0.83-4.51); Lymphocyte % 10.9 % (19-41); Mean Corpuscular Hgb 33.6 pg (27.0-32.0); Mean Corpuscular Volume 98.8 fL (80-94); Mean Platelet Vol. 10.3 fl (6.2-12.0); Monocyte# 0.85 X10^3/uL; Monocyte% 9.8 % (0-10); NRBC Flagged by Analyzer 0 % (0-5); Neutrophil # 6.28 X10^3/uL (2.7-7.7); Neutrophil % 72.7 % (47-70); Platelet Count 233 K/mm3 (150-450); RBC Distribution Width CV 13.2 % (11.6-14.6); Red Blood Count 4.94 M/mm3 (4.6-6.2); White Blood Count 8.6 K/mm3 (4.4-11.0)
--- NOTE | 2022-03-15 22:40 | EX.ED.DYSGE1 ---
HPI History of Present Illness Chief Complaint: Complaint Informant: patient Onset/Context/Timing Onset: Today Context: Gradual Onset Timing: Continuous Quality: Pressure Location: Suprapubic area Worsened by: Nothing Relieved by: Nothing Narrative Narrative: Patient presents with urinary retention that began today. Patient states he was able to urinate yesterday. Patient states today he was only able to urinate small amounts. Patient states he was passing some blood clots. Patient states he was recently diagnosed with a kidney stone and has been having some hematuria throughout the week. Patient states today he has been noticing clots of blood when he urinates. Patient states his bladder feels distended. Patient denies any fevers or chills. Patient denies any nausea or vomiting. Patient denies any dysuria. PFSH [facility] Medical History Essential hypertension Hyperlipidemia Low testosterone Mobitz type 2 second degree atrioventricular block Nicotine dependence Obesity Prostate enlargement Home Medications amlodipine 10 mg tablet 10 mg PO DAILY 08/17/21 [History Last Taken Unknown] atorvastatin 20 mg tablet 20 mg PO DAILY 08/17/21 [History Last Taken Unknown] finasteride 5 mg tablet 5 mg PO DAILY 08/17/21 [History Last Taken Unknown] hydrochlorothiazide 25 mg tablet 25 mg PO DAILY 08/17/21 [History Last Taken Unknown] losartan 100 mg tablet 100 mg PO DAILY 08/17/21 [History Last Taken Unknown] aspirin 81 mg tablet,delayed release (Adult Aspirin Regimen) 81 mg PO DAILY 09/24/21 [History Last Taken Unknown] calcium carbonate 200 mg calcium (500 mg) chewable tablet (Tums) 200 mg PO BID PRN 09/24/21 [History Last Taken Unknown] multivitamin 1 tab PO DAILY 09/24/21 [History Last Taken Unknown] meloxicam 15 mg tablet 15 mg PO DAILY 10/03/21 [History Last Taken Unknown] testosterone 75 mg implant pellet 75 mg implant [id number] 10/03/21 [History Last Taken Unknown] Allergy/AdvReac Type Severity Reaction Status Date / Time No Known Allergies Allergy Verified 03/15/22 21:00 Family History Grandfather Heart disease paternal Father Heart disease CAD (coronary artery disease) Diabetes Hypertension Myocardial infarction Mother Hypertension Breast cancer Surgical History History of herniorrhaphy History of lithotripsy History of tonsillectomy History of transurethral resection of prostate History of vasectomy Social History Smoking Status: Light Smoker (<10/day) ROS ROS ED Constitutional Constitutional ED: Denies chills or fever(s) Eyes Eyes: Denies blurry vision or change in vision ENT ENT ED: Denies rhinorrhea or sore throat Cardiovascular Cardiovascular: Denies chest pain or palpitations Respiratory/Chest Respiratory/Chest: Reports cough; Denies dyspnea Gastrointestinal Gastrointestinal: Denies nausea or vomiting Genitourinary Genitourinary ED: Reports dysuria and hematuria Musculoskeletal Musculoskeletal: Denies back pain or neck pain Integumentary Denies abscess or rash Neurologic Neurologic: Denies headache(s) or weakness Allergic/Immunologic Allergic/Immunologic ED: Denies mouth swelling or urticaria EXAM Physical Exam Const Vital Signs: 03/15/22 21:00 Temperature 97.2 F L Temperature Source Temporal Pulse Rate 107 H Respiratory Rate 18 Blood Pressure 221/83 H Blood Pressure Mean 129 Pulse Ox 100 Oxygen Delivery Method Room Air Positive well nourished and well developed General Appearance ED: well developed and NAD HEENT Reports moist mucous membranes Neck supple and no JVD Resp normal respiratory effort and clear to auscultation bilaterally Cardio regular rate and regular rhythm GI normal to inspection, nondistended, normoactive bowel sounds Auscultation: normoactive bowel sounds Palpation: soft Neuro oriented x3, CN's II-XII intact bilaterally and no sensory deficits noted Sensorium / Orientation: alert Motor Exam: strength 5/5 throughout Psych mental status grossly normal MDM MDM MDM Narrative Medical decision making narrative: IV line was established. Bladder scan was performed and it showed there were 870 cc of urine in the bladder. Cano catheter was placed. CBC was obtained and was reviewed. Hemoglobin was slightly elevated at 16.6. Platelets were normal. White blood cell count was normal. PT was INR and PTT were obtained and were reviewed. These were all within normal limits. Comprehensive metabolic profile was obtained and was reviewed. BUN was 38 and creatinine was 1.66. Glucose was slightly elevated at 115. Prior outpatient labs were reviewed. 2 days ago, the creatinine was 1.1 and BUN was 31. These are only mildly increased. Urinalysis was obtained and was reviewed. Leukocyte esterase was 25 with 0-5 white blood cells. Occult blood was 250 with 10-25 red blood cells. Patient had 900 cc of urine output after catheter was placed. Patient feels better on reevaluation. Patient was given a leg bag to go home with. Patient was instructed to follow-up with urology in 3 to 5 days. Patient understood and was agreeable with the plan. All questions were answered. Lab Data Attestation: I reviewed the patient's lab results. Labs: Laboratory Results - last 24 hr 03/15/22 03/15/22 03/15/22 22:00 22:17 22:17 WBC 8.6 RBC 4.94 Hgb 16.6 H Hct 48.8 MCV 98.8 H MCH 33.6 H MCHC 34.0 RDW Std Deviation 48.0 H RDW Coeff of Dulce 13.2 Plt Count 233 MPV 10.3 Immature Gran % (Auto) 0.300 Neut % (Auto) 72.7 H Lymph % (Auto) 10.9 L [place] % (Auto) 9.8 Eos % (Auto) 5.6 H Baso % (Auto) 0.7 Absolute Neuts (auto) 6.3 Absolute Lymphs (auto) 0.94 Nucleated RBC % 0 PT 13.1 INR 1.0 APTT 28.7 Sodium Potassium Chloride Carbon Dioxide Anion Gap BUN Creatinine Estim Creat Clear Calc Est GFR (MDRD) Af Amer Est GFR (MDRD) Non-Af BUN/Creatinine Ratio Glucose Calcium Total Bilirubin AST ALT Alkaline Phosphatase Total Protein Albumin Globulin Albumin/Globulin Ratio Urine Color Yellow Urine Clarity Sl. Cloudy Urine pH 6.0 Ur Specific [place] 1.015 Urine Protein 30 H Urine Glucose (UA) Normal Urine Ketones Negative Urine Occult Blood 250 H Urine Nitrite Negative Urine Bilirubin Negative Urine Urobilinogen Normal Ur Leukocyte Esterase 25 H Urine RBC 10-25 SEEN Urine WBC 0-5 SEEN Ur Squamous Epith Cells 0-5 SEEN Amorphous Sediment 1+ URATE Urine Bacteria 0 SEEN Urine Mucus 0 SEEN 03/15/22 22:17 WBC RBC Hgb Hct MCV MCH MCHC RDW Std Deviation RDW Coeff of Dulce Plt Count MPV Immature Gran % (Auto) Neut % (Auto) Lymph % (Auto) [place] % (Auto) Eos % (Auto) Baso % (Auto) Absolute Neuts (auto) Absolute Lymphs (auto) Nucleated RBC % PT INR APTT Sodium 140 Potassium 3.6 Chloride 106 Carbon Dioxide 27.0 Anion Gap 7 BUN 38 H Creatinine 1.66 H Estim Creat Clear Calc 35.76 Est GFR (MDRD) Af Amer 52 L Est GFR (MDRD) Non-Af 43 L BUN/Creatinine Ratio 22.9 H Glucose 115 H Calcium 8.8 Total Bilirubin 0.50 AST 18 ALT 31 Alkaline Phosphatase 59 Total Protein 7.3 Albumin 3.8 Globulin 3.5 Albumin/Globulin Ratio 1.1 Urine Color Urine Clarity Urine pH Ur Specific [place] Urine Protein Urine Glucose (UA) Urine Ketones Urine Occult Blood Urine Nitrite Urine Bilirubin Urine Urobilinogen Ur Leukocyte Esterase Urine RBC Urine WBC Ur Squamous Epith Cells Amorphous Sediment Urine Bacteria Urine Mucus Discharge Plan Triage Chief Complaint: Complaint ED Provider: Jc Hubbard Dx/Rx/DC Orders Clinical Impression: Acute urinary retention, Nicotine dependence, Obesity, Essential hypertension Instructions: ED Urinary Retention, Male Prescriptions: No Action aspirin [Adult Aspirin Regimen] 81 mg tablet,delayed release (DR/EC) 81 mg PO DAILY calcium carbonate [Tums] 200 mg calcium (500 mg) tablet,chewable 200 mg PO BID PRN multivitamin Tablet 1 tab PO DAILY meloxicam 15 mg tablet 15 mg PO DAILY atorvastatin 20 mg Tablet 20 mg PO DAILY amlodipine 10 mg Tablet 10 mg PO DAILY hydrochlorothiazide 25 mg Tablet 25 mg PO DAILY losartan 100 mg Tablet 100 mg PO DAILY finasteride 5 mg Tablet 5 mg PO DAILY testosterone 75 mg pellet 75 mg implant [id number] Primary Care Provider: Jesus Cooley Referrals: Jesus Cooley MD [Primary Care Provider] - 3-5 Days Stewart Alex MD [Med Staff - Active Staff] - 3-5 Days Disposition Disposition: Home, Self Care
[2022-03-15 22:42] LABS: Partial Thromboplast Time 28.7 Seconds (24.1-36.2); Prothrombin Time (Protime)PT. 13.1 SECONDS (11.7-14.9)
[2022-03-15 22:48] LABS: ALB/GLOB Ratio 1.1 RATIO (0.9-2.4); AST(SGOT) 18 U/L (15-37); Alanine Aminotransfer ALT/SGPT 31 U/L (16-61); Albumin, Serum 3.8 g/dL (3.2-5.0); Alkaline Phosphatase 59 U/L (45-117); Anion Gap 7 (5-15); BUN 38 mg/dL (7-18); BUN/Creat Ratio 22.9 RATIO (10-20); Calcium,Total 8.8 mg/dL (8.5-10.1); Chloride 106 mmol/L (98-107); Creatinine, Serum 1.66 mg/dL (0.70-1.30); EST Glomerular Filtration Rate 43 mL/min (>60); Est Glom Filt Rate - Afr Amer 52 mL/min (>60); Estimated Creatinine Clearance 35.76 ml/min; Globulin 3.5 g/dL (2.2-4.2); Glucose 115 mg/dL (74-106); Potassium 3.6 mmol/L (3.5-5.1); Protein, Total 7.3 g/dL (6.4-8.2); Sodium Level 140 mmol/L (136-145)
[2022-03-15 22:59] VITALS: RESP 15
[2022-03-15 23:01] VITALS: BP 140/78; PULSE 84; RESP 15; O2SAT 97
== END 2022-03-15 23:18 | disposition home or self-care (01) ==
PROVIDERS: Emergency Provider Emergency Medicine; PCP Family Medicine; Visit Provider Emergency Medicine
DX: R33.9 Retention of urine, unspecified (principal); R31.9 Hematuria, unspecified; I10 Essential (primary) hypertension; E78.5 Hyperlipidemia, unspecified; R73.9 Hyperglycemia, unspecified; E66.9 Obesity, unspecified; F17.200 Nicotine dependence, unspecified, uncomplicated; Z79.82 Long term (current) use of aspirin; Z79.1 Long term (current) use of non-steroidal anti-inflammatories (NSAID); Z79.899 Other long term (current) drug therapy
CPT/HCPCS: 51702; 80053; 81001; 85025; 85610; 85730; 99283; A4216

== ENCOUNTER 2022-03-19 17:05 | Observation (INO) | payer BC, SELFPAY ==
[2022-03-19] VITALS (10 sets, daily range): BP systolic 125–145; BP diastolic 60–83; PULSE 68–78; RESP 16–18; TEMP 36.6–37.2; O2SAT 95–99; BMI 35.0; BMI 36.0
[2022-03-19] MEDS: Lactated Ringers 1,000 ML 15 ML IV ×2 (14:06→16:59)
[2022-03-19] MEDS: Ipratropium/Albuterol Sulfate 3 ML AMPUL.NEB INHALATION (14:27)
--- NOTE | 2022-03-19 14:48 | PCM.HP.STD ---
HPI - General General Date of Service: 03/19/22 Chief Complaint: Bladder tumor bleeding [facility] Narrative CLIFTON DAVIS, is a 71 M who presents for resection of a bleeding bladder mass. Plan to do transurethral section of this mass and evacuate the blood clots from his bladder. [facility] Medical History (Updated 03/18/22 @ 08:22 by Cesia Horner) Asthma Back pain Cardiology follow-up encounter Essential hypertension Gastric reflux History of echocardiogram History of Holter monitoring History of pacemaker History of stress test Hyperlipidemia Low testosterone Mobitz type 2 second degree atrioventricular block Nicotine dependence Obesity Prostate enlargement Wears glasses Wears hearing aid Home Medications amlodipine 10 mg tablet 10 mg PO DAILY 08/17/21 [History Last Taken 03/19/22] atorvastatin 20 mg tablet 20 mg PO DAILY 08/17/21 [History Last Taken 03/18/22] finasteride 5 mg tablet 5 mg PO DAILY 08/17/21 [History Last Taken 03/18/22] hydrochlorothiazide 25 mg tablet 25 mg PO DAILY 08/17/21 [History Last Taken 03/18/22] losartan 100 mg tablet 100 mg PO DAILY 08/17/21 [History Last Taken 03/19/22] aspirin 81 mg tablet,delayed release (Adult Aspirin Regimen) 81 mg PO DAILY 09/24/21 [History Last Taken 03/17/22] meloxicam 15 mg tablet 15 mg PO DAILY 10/03/21 [History Last Taken 03/18/22] testosterone 75 mg implant pellet 75 mg implant [id number] 10/03/21 [History Last Taken Unknown] clonidine HCl 0.1 mg tablet 0.1 mg PO BID 03/18/22 [History Last Taken 03/19/22] famotidine 20 mg tablet (Pepcid AC) 20 mg PO DAILY 03/18/22 [History Last Taken 03/18/22] fluticasone propionate 50 mcg/actuation nasal spray,suspension 1 spray intranasal DAILY PRN ALLERGIES 03/18/22 [History Last Taken Unknown] iodine (kelp) 0.15 mg tablet 12.5 mcg PO DAILY 03/18/22 [History Last Taken 03/18/22] multivitamin 1 tab PO DAILY 03/18/22 [History Last Taken 03/18/22] Allergy/AdvReac Type Severity Reaction Status Date / Time No Known Allergies Allergy Verified 03/19/22 14:05 Family History Grandfather Heart disease paternal Father Heart disease CAD (coronary artery disease) Diabetes Hypertension Myocardial infarction Mother Hypertension Breast cancer Surgical History History of herniorrhaphy History of lithotripsy History of tonsillectomy History of transurethral resection of prostate History of vasectomy Social History Smoking Status: Light Smoker (<10/day) Vital Signs Vital Signs Vital Signs: 03/19/22 14:07 03/19/22 14:07 03/19/22 14:29 Temperature 99 F Temperature Source Temporal Pulse Rate 73 74 Respiratory Rate 18 18 Respiratory Pattern Normal Blood Pressure 136/60 H Blood Pressure Mean 85 Blood Pressure Source Monitor Blood Pressure Position Semi-Fowlers Blood Pressure Location Right Arm Pulse Ox 99 Oxygen Delivery Method Room Air Weight Weight: 101.605 kg Body Mass Index (BMI) 35.0
--- NOTE | 2022-03-19 14:49 | DCINST_ITS ---
Discharge Instructions Diet Discharge Diet: No restrictions, Light diet - advance as tolerated and Soft diet Activity Lifting Restrictions: No heavy lifting for several weeks Dressing / Incision Call your doctor if your incision/area has: Sudden Increased Bleeding Follow Up Care Please Follow Up With: Stewart Alex MD When: call for appt, 2 weeks Test Results: Test results from this visit will be discussed in further detail at your follow- up appointment, if applicable. Discharge Plan Admission Primary Reason for Your Visit: resection of bladder tumor Attending Provider: Stewart Alex Primary Care Provider: Jesus Cooley Instructions Patient Instructions: Bladder Cancer TUR Discharge Orders/Prescriptions Prescriptions: Continued aspirin [Adult Aspirin Regimen] 81 mg tablet,delayed release (DR/EC) 81 mg PO DAILY meloxicam 15 mg tablet 15 mg PO DAILY atorvastatin 20 mg Tablet 20 mg PO DAILY amlodipine 10 mg Tablet 10 mg PO DAILY hydrochlorothiazide 25 mg Tablet 25 mg PO DAILY losartan 100 mg Tablet 100 mg PO DAILY finasteride 5 mg Tablet 5 mg PO DAILY testosterone 75 mg pellet 75 mg implant [id number] multivitamin Tablet 1 tab PO DAILY clonidine HCl 0.1 mg Tablet 0.1 mg PO BID iodine (kelp) 0.15 mg Tablet 12.5 mcg PO DAILY famotidine [Pepcid AC] 20 mg Tablet 20 mg PO DAILY fluticasone propionate 50 mcg/actuation [place],Suspension 1 spray INTRANASAL DAILY PRN (Reason: ALLERGIES) Rx Instructions: administer into each nostril Referrals / Follow Up: Jesus Cooley MD [Primary Care Provider] - Stewart Alex MD [Med Staff - Active Staff] - Disposition Disposition (needs filled in before D/C Order can be placed): Home, Self Care
[2022-03-19] MEDS: Cefazolin 2 GM in 0.9% Normal Saline 100 ML IV (15:08)
--- NOTE | 2022-03-19 15:35 | BLB_PTH ---
PATIENT: CLIFTON DAVIS LOC: MS3 U#:[id number] AGE/SX: 71/M [place] [facility] [place]: Dr. Stewart Alex MD : 1950 BED: 1 DIS: 03/20/2022 SPEC #: [id number] RECD: 03/20/22 12:59 STATUS: MILA DUNN #: [id number] MORRO: 03/19/22 15:[address]: Stewart Alex DEPT: SURGICAL PATHOLOGY RECD BY: Mylene Walsh ENTERED: 03/20/22 13:08 SP TYPE: TURB OTHR DR: Dr. Cooper Cooley MD Tissues: Urinary bladder, NOS Procedures: Surgery Specimen Level V HEADER OPERATION: Cysto, transurethral resection bladder tumor PRE-OP DIAGNOSIS: Bladder tumor bleeding TISSUE SUBMITTED: Bladder tumor MICROSCOPIC DIAGNOSIS Urinary bladder tumor, transurethral resection: Papillary urothelial carcinoma. See cancer synoptic report below. AM:ovidio 03/21/2022 COMMENT BLADDER CANCER (TUR) SUMMARY Procedure: Transurethral resection of bladder tumor (TURBT) Tumor site: Not specified Histologic type: Papillary urothelial carcinoma Histologic grade: 1/3 (WHO low grade) Tumor configuration: Papillary Muscularis propria presence: Present and free of carcinoma. Lymphvascular invasion: Not identified Tumor extension: Confined to urothelium. Additional pathologic findings: Prostate tissue with benign nodule hyperplasia and chronic inflammation. The above summary is in compliance with [employer] of [place] [employer] (CAP) Cancer Protocols Checklist and [place] Joint Committee on Cancer (AJCC), Staging Manual, 8th Ed. Case has been reviewed in consultation with Dr. Coulter who concurs with the above diagnosis. IDC:SJ MICROSCOPIC DESCRIPTION Slides are reviewed. GROSS DESCRIPTION Received in fixative is one container labeled with the patient's name and designated bladder tumor. The specimen consists of multiple irregular fragments of meehan, indurated tissue mixed with blood clot that in aggregate measure 6 x 6 x 2 cm. A few fragments of blood clots are also noted. The entire specimen is submitted in 17 cassettes. / SJ:ovidio 03/20/2022 TC:0 CPT: 05442
--- NOTE | 2022-03-19 16:35 | OP.PCM_ITS ---
Report of Operation Date of Procedure: 03/19/22 Pre-Operative Diagnosis: Bladder tumor and BPH with obstruction large prostate Post-Operative Diagnosis: Same Surgery/Procedure Performed:: Transurethral resection of a bladder tumor large, and transurethral section of the prostate Description of Surgical Findings:: Patient presented to the hospital for treatment of a tumor that was found in the bladder with a very large bladder tumor. Patient understands is possible it may not be able to resect the entire tumor. Patient also understands is possible that the patient may need multiple procedures or more invasive procedures to cure him of this cancer. Patient was taken back to the operating room after smooth induction of anesthesia the patient was placed supine on the table. The patient was placed in dorsolithotomy position. The urethra and genitals prepped and draped in usual sterile fashion. I went into the bladder with a 30 degree lens and a cystoscope was performed and identified the tumors at the bladder neck and also a tumor up in the dome of the bladder behind the bladder neck these are large tumors. I then switched over to the 70 degree lens and inspected the rest of the bladder with a 70 degree lens to make sure there is no other tumors in the bladder and to identify all the tumor locations. The right and left ureteral orifice were identified. The tumors were not involved in the ureteral orifice. I then placed the Olympus bipolar resectoscope with a large loop into the bladder. I then started resected the tumor and started superficially shaving small little pieces working my way to the base of the tumor. As I went along I then cauterize any bleeders that were encountered during the resection. The tumor pieces were then flushed out of the bladder and continued resecting the tumor until finally I got down to the base of the tumor and the muscle of the bladder was then identified a small little bit of muscle was taken with the resection. The Ellik was used then to evacuate all the tumor pieces out of the bladder. I then cauterized extensively the tumor base and also circumferentially around where the tumor was. Again we made sure to evacuate all the pieces out the bladder. I made sure there was no more bleeding from the base of the bladder and then over the tumor pieces were then evacuated out and sent off as a specimen mixed with prostate tissue. The tumor at the bladder neck was extensively involved in the prostate he had extensive amount obstructive tissue in the prostate as well so I decided that this point to resect this tumor that was in the prostate bladder neck area and also then resected prostate open and proceeded with a TURP. I marked out the area of the sphincter and the verumontanum was identified. I then proceeded with the prostate resection first resected the median lobe. And then resected the right lobe of the prostate. Then to resect the left lobe of the prostate. I then resected the apical tissue of the prostate. This was a complete resection of all obstructive tissue to improve voiding and relieve obstruction. I then made sure that there was no injury to the sphincter or the verumontanum was still intact. At the end of the resection all the chips were Ellik out of the bladder. I then identified the left and right ureteral orifice and these were confirmed to be in good position and effluxing and not injured. The resectoscope was removed, a 22 [place] catheter was placed into the bladder on continuous irrigation. And the urine was fairly light pink color and draining normally. He was taken back to the PACU in good condition. Surgeon: Stewart Alex Type of Anesthesia: General Drains: [address] Admit VTE Documentation VTE Present on Admission: No VTE Mechan Device Prophylaxis: SCD's VTE Pharm Prophylaxis ordered?: No
[2022-03-19] MEDS: Lactated Ringers 1,000 ML 75 ML IV (17:58)
[2022-03-19] MEDS: cloNIDine HCl 0.1 MG Tablet PO (21:02)
[2022-03-19] MEDS: Ciprofloxacin 200 MG/100 ML BAG IV ×2 (21:02)
[2022-03-19] MEDS: 0.9% Normal Saline 1,000 ML 125 ML IV (21:02)
[2022-03-19] MEDS: Docusate Sodium 100 MG Capsule 200 MG PO (21:02)
[2022-03-19] MEDS: Atorvastatin Calcium 20 MG Tablet PO (21:02)
[2022-03-19] MEDS: oxyCODONE 5 MG Tablet PO (21:05)
[2022-03-20 03:01] VITALS: BP 147/86; PULSE 80; RESP 16; TEMP 36.8; O2SAT 94
[2022-03-20 05:58] LABS: Hematocrit 42.9 % (40-54); Hemoglobin 14.2 g/dL (13.0-16.5); Mean Corp Hgb Conc 33.1 g/dL (32-36); Mean Corpuscular Hgb 33.3 pg (27.0-32.0); Mean Corpuscular Volume 100.5 fL (80-94); Mean Platelet Vol. 10.6 fl (6.2-12.0); Platelet Count 201 K/mm3 (150-450); RBC Distribution Width CV 13.1 % (11.6-14.6); RBC Distribution Width SD 48.6 fl (35.1-43.9); Red Blood Count 4.27 M/mm3 (4.6-6.2); White Blood Count 13.6 K/mm3 (4.4-11.0)
--- NOTE | 2022-03-20 06:00 | NURSING ---
CBI stopped @ 0600 per order
[2022-03-20] MEDS: 0.9% Normal Saline 1,000 ML 125 ML IV (06:11)
[2022-03-20] MEDS: oxyCODONE 5 MG Tablet PO (06:18)
[2022-03-20 06:21] LABS: Anion Gap 7 (5-15); BUN 23 mg/dL (7-18); BUN/Creat Ratio 21.3 RATIO (10-20); Calcium,Total 7.9 mg/dL (8.5-10.1); Chloride 107 mmol/L (98-107); Creatinine, Serum 1.08 mg/dL (0.70-1.30); EST Glomerular Filtration Rate 71 mL/min (>60); Est Glom Filt Rate - Afr Amer 86 mL/min (>60); Estimated Creatinine Clearance 56.95 ml/min; Glucose 151 mg/dL (74-106); Potassium 3.8 mmol/L (3.5-5.1); Sodium Level 140 mmol/L (136-145)
--- NOTE | 2022-03-20 07:26 | PCM.PN.GU ---
Subjective Subjective Status post transurethral resection of prostate and also resection of some bladder tumors. This morning we will get the catheter out for a voiding trial and see how he does. Objective Data Objective Data Vital Signs: Vital Signs Temp Pulse Resp BP Pulse Ox O2 Del Method 98.2 F 80 16 147/86 H 94 Room Air 03/20/22 03:01 03/20/22 03:01 03/20/22 03:01 03/20/22 03:01 03/20/22 03:01 03/20/22 03:01 Oxygen Delivery Method Room Air Weight: 104.326 kg Body Mass Index (BMI) 36.0 Intake & Output: Intake and Output for Last 24 Hours 03/18/22 03/19/22 03/20/22 23:59 23:59 23:59 Intake Total 1560 / 1560 1000 / 1000 Output Total 750 / 2550 5250 / 5250 Balance 810 / -990 -4250 / -4250 Lab / Micro Data Result Diagrams: 03/20/22 05:35 03/20/22 05:35 Labs: Laboratory Results - last 24 hr 03/20/22 05:35: WBC 13.6 H, RBC 4.27 L, Hgb 14.2, Hct 42.9, MCV 100.5 H, MCH 33.3 H, MCHC 33.1, RDW Std Deviation 48.6 H, RDW Coeff of [place]ce 13.1, Plt Count 201, MPV 10.6 03/20/22 05:35: Sodium 140, Potassium 3.8, Chloride 107, Carbon Dioxide 26.0, Anion Gap 7, BUN 23 H, Creatinine 1.08, Estim Creat Clear Calc 56.95, Est GFR (MDRD) Af Amer 86, Est GFR (MDRD) Non-Af 71, BUN/Creatinine Ratio 21.3 H, Glucose 151 H, Calcium 7.9 L
--- NOTE | 2022-03-20 08:55 | NURSING ---
mill labor supervisor at bedside, updating changes to upcoming procedure
[2022-03-20 09:10] VITALS: BP 149/73; PULSE 72; RESP 18; TEMP 36.6; O2SAT 95
[2022-03-20] MEDS: Ciprofloxacin 200 MG/100 ML BAG IV ×2 (09:13→10:44)
[2022-03-20] MEDS: Finasteride 5 MG Tablet PO (09:14)
[2022-03-20] MEDS: Meloxicam 15 MG Tablet PO (09:14)
[2022-03-20] MEDS: Famotidine 20 MG Tablet PO (09:14)
[2022-03-20] MEDS: hydroCHLOROthiazide 25 MG Tablet PO (09:14)
[2022-03-20] MEDS: Docusate Sodium 100 MG Capsule 200 MG PO (09:14)
[2022-03-20] MEDS: Losartan Potassium 100 MG Tablet PO (09:14)
[2022-03-20] MEDS: cloNIDine HCl 0.1 MG Tablet PO (09:14)
[2022-03-20] MEDS: amLODIPine 10 MG Tablet PO (09:14)
[2022-03-20 13:21] VITALS: BP 125/53; PULSE 70; RESP 18; TEMP 36.7
== END 2022-03-20 15:10 | disposition home or self-care (01) ==
LOC: SDC 17:28 → MS3 17:28
PROVIDERS: Admitting Provider Urology; PCP Family Medicine; Referring Provider Urology; Visit Provider Urology
PROC: 0T5B8ZZ Destruction of Bladder, Via Natural or Artificial Opening Endoscopic (ICD-10-PCS; CPT 51720; principal; 2022-03-19 15:25)
DX: C67.5 Malignant neoplasm of bladder neck (principal); I10 Essential (primary) hypertension; Z79.82 Long term (current) use of aspirin; F17.220 Nicotine dependence, chewing tobacco, uncomplicated; N40.1 Benign prostatic hyperplasia with lower urinary tract symptoms; E78.5 Hyperlipidemia, unspecified; K21.9 Gastro-esophageal reflux disease without esophagitis; J45.909 Unspecified asthma, uncomplicated; Z79.899 Other long term (current) drug therapy; E66.9 Obesity, unspecified; Z68.35 Body mass index [BMI] 35.0-35.9, adult; I44.1 Atrioventricular block, second degree; N13.8 Other obstructive and reflux uropathy
CPT/HCPCS: 52240; 52601; 00912; 36415; 80048; 85027; 88307; 94640; 96361; 96365; 96366; 99221; 99252; 99406; J7030; J7120; G0378; G0463; J0744; J2405

== ENCOUNTER 2022-03-31 14:30 | Observation (INO) | payer BC, SELFPAY ==
--- NOTE | 2022-03-17 14:21 | RAD_ITS ---
INDICATION: For PPM imlant on 03/24/22 EXAMINATION/TECHNIQUE: X-RAY - XR Chest 2 Views COMPARISON: August 17, 2021. FINDINGS: LINES/DEVICES: None. LUNGS: No consolidation, edema or effusion. No pneumothorax. MEDIASTINUM AND CARDIOVASCULAR STRUCTURES: Cardiac silhouette not enlarged. Central airways and mediastinal contour are unremarkable. BONES AND SOFT TISSUES: Unremarkable. RAD/Chest PA and Lateral IMPRESSION: No radiographic evidence of acute cardiopulmonary disease. Electronically Signed: Renaldo Elam DO at 18:13 EST Reading Location ID and State: [facility] / [place] Tel [phone], Service support ,
[2022-03-28 08:41] VITALS: BMI 36.6
[2022-03-31] VITALS (12 sets, daily range): BP systolic 139–156; BP diastolic 71–86; PULSE 61–70; RESP 11–18; TEMP 36.6–36.7; O2SAT 93–97
--- NOTE | 2022-03-31 11:28 | EKG12_ITS ---
Test Reason : PACEMAKER Blood Pressure : / mmHG Vent. Rate : 072 BPM Atrial Rate : 072 BPM P-R Int : 228 ms QRS Dur : 088 ms QT Int : 382 ms P-R-T Axes : 049 041 024 degrees QTc Int : 418 ms Sinus rhythm with 1st degree A-V block Otherwise normal ECG When compared with ECG of 17-AUG-2021 08:21, No significant change was found Confirmed by MADDY MARCANO, MARQUEZ ([id number]), editor publications CORIE VALERA ([id number]) on 04/04/2022 9:16:05 AM Referred By: James Manuel Confirmed By:BRANDON CASTAÑEDA MD
[2022-03-31 11:48] LABS: Mucous, Urine 0 SEEN /hpf (<or=2+); Squamous Epithelial Cells - UA 0 SEEN /hpf (0-5)
[2022-03-31 11:50] LABS: Color, Urine Yellow (Yellow); Glucose, Dipstick Normal (Normal); Ketone-Dipstick Negative (Negative); Leukocyte Esterase-Dipstick 500 /ul (Negative); Nitrite-Dipstick Negative (Negative); Occult Blood-Urine 250 /ul (Negative); Protein-Dipstick 30 mg/dl (Negative); Urine Bilirubin Dipstick Negative (Negative); Urine Clarity Clear (Clear); Urine Urobilinogen Normal (Normal)
[2022-03-31 12:00] LABS: Red Blood Cells-Urine 25-50 SEEN /hpf (0-5); White Blood Cells 25-50 SEEN /hpf (0-5)
[2022-03-31 12:01] LABS: Bacteria RARE /hpf (None Seen)
--- NOTE | 2022-03-31 13:54 | CL.IE_ITS ---
Patient: CLIFTON DAVIS Study Date: 03/31/2022 Performing: James Manuel MD : 1950 Age: 71 Gender: male PROCEDURES PERFORMED LP04-([id number])INITIAL PACER INSERT+DUAL LEADS INDICATIONS Mobitz (type II) AV block PROCEDURE DETAILS The patient was brought to the Catheterization Lab in the postabsorptive nonsedated state. Informed consent was obtained prior to the procedure. Local anesthetic was given subcutaneously to the left upper chest area with Lidocaine 2%. Access was achieved and a guidewire was advanced into the left subclavian vein. Incision was made to the left upper chest. PPM ventricular lead was inserted / positioned to right ventricular apex. PPM ventricular lead testing performed. PPM ventricular lead testing performed. PPM atrial lead was inserted / positioned to the right atrial appendage. PPM atrial lead testing performed. The Ventricular PM lead sutured in place with 2-0 Silk. The Atrial lead sutured in place with 2-0 Silk. PPM generator was attached to the lead(s) and inserted into the pocket. PPM generator was then interrogated by the asp net programmer. Device pocket was irrigated with antibiotic, Ancef 1gm. Subcutaneous closure was completed with 3-0 Vicryl. Skin closure was completed with 4-0 Vicryl. Steri-strips applied to Lt chest area. The patient tolerated the procedure well. Estimated Blood Loss: 10 ml's IMPLANTED / EX-PLANTED DEVICES IMPLANTED DEVICE(S): PPM Ventricular lead - Concrete Pipe Plant Supervisor: Neonode, Model # Ingevity 59 cm 7842 , Serial # [id number] PPM Atrial lead - Concrete Pipe Plant Supervisor: Tabor Appydrink, Model # Ingevity 52 cm 7841 , Serial # [id number] PPM Generator - Concrete Pipe Plant Supervisor: Neonode, Model # Essentio MRI DR L111 , Serial # [id number] DEVICE PARAMETERS ATRIAL LEAD PARAMETERS: P wave- 12.2 (mV) Current- 1.4 (mA) threshold- 0.9 (V) impedence- 660 (OHMS) VENTRICULAR LEAD PARAMETERS: R wave- 19.6 (mV) Current- 0.5 (mA) threshold- 0.4 (V) impedence- 756 (OHMS) DEVICE PARAMETERS: Mode- DDD Lower rate- 60 Upper rate- 130 CONCLUSIONS / RECOMMENDATIONS Device Conclusions: Successful implantation of a dual chamber pacemaker Device Recommendations: Follow up with Primary Care Physician PROCEDURE MEDICATIONS Versed 1 mg IV Fentanyl 50 mcg IV Versed 1 mg IV Versed 1 mg IV Fentanyl 25 mcg IV Versed 1 mg IV Oxygen: 2 L/min via nasal cannula Antibiotic given in appropriate timeframe. Ancef 2 Gm IV @ 03/31/2022 12:38:16 Signed By James Manuel MD On 03/31/2022 13:54:20 James Manuel MD
[2022-03-31] MEDS: cloNIDine HCl 0.1 MG Tablet PO (21:17)
[2022-04-01 03:37] VITALS: BP 124/72; PULSE 61; RESP 18; TEMP 36.5; O2SAT 97
--- NOTE | 2022-04-01 05:55 | RAD_ITS ---
INDICATION: Post permanent ICD/Pacemaker -- inspiration/expiration. Arms Down. Wet read to MD EXAMINATION/TECHNIQUE: X-RAY - XR Chest 3 Views: AP and separation, expiration and lateral views of chest COMPARISON: Two-view chest x-ray from 03/17/2022 FINDINGS: LINES/DEVICES: Left AICD in place LUNGS: No pulmonary edema or focal airspace consolidation. No sizable pleural effusion. No pneumothorax detected. MEDIASTINUM AND CARDIOVASCULAR STRUCTURES: Heart size within normal limits. Mediastinal contours unremarkable. BONES AND SOFT TISSUES: No acute findings. RAD/Chest 3 View IMPRESSION: No radiographic evidence of acute cardiopulmonary disease. Electronically Signed: Stuart Milner MD at 5:24 EST ,
--- NOTE | 2022-04-01 08:12 | PN.CARD_ITS ---
Subjective Subjective Patient seen and evaluated. Appears to be doing well. No complaints. Objective Data Vital Signs: Vital Signs Temp Pulse Resp BP Pulse Ox O2 Del Method 97.7 F L 61 18 124/72 H 97 Room Air 04/01/22 03:37 04/01/22 03:37 04/01/22 03:37 04/01/22 03:37 04/01/22 03:37 04/01/22 03:40 Oxygen Delivery Method Room Air Weight: 227 lb Body Mass Index (BMI) 36.6 Intake & Output: Intake and Output for Last 24 Hours 03/30/22 03/31/22 04/01/22 23:59 23:59 23:59 Intake Total 240 / 720 480 / 480 Output Total 500 / 1300 800 / 800 Balance -260 / -580 -320 / -320 Lab / Micro Data Labs: Laboratory Results - last 24 hr 03/31/22 11:25: Urine Color Yellow, Urine Clarity Clear, Urine pH 7.0, Ur Specific [place] 1.010, Urine Protein 30 H, Urine Glucose (UA) Normal, Urine Ketones Negative, Urine Occult Blood 250 H, Urine Nitrite Negative, Urine Bilirubin Negative, Urine Urobilinogen Normal, Ur Leukocyte Esterase 500 H, Urine RBC 25-50 SEEN, Urine WBC 25-50 SEEN, Ur Squamous Epith Cells 0 SEEN, Urine Bacteria RARE, Urine Mucus 0 SEEN Cardiology Labs/Tests 03/31/22 11:25: Urine Color Yellow, Urine Clarity Clear, Urine pH 7.0, Ur Specific [place] 1.010, Urine Protein 30 H, Urine Glucose (UA) Normal, Urine Ketones Negative, Urine Occult Blood 250 H, Urine Nitrite Negative, Urine Bilirubin Negative, Urine Urobilinogen Normal, Ur Leukocyte Esterase 500 H, Urine RBC 25-50 SEEN, Urine WBC 25-50 SEEN Rhythm: EKG: ECHO: Stress Test: Cardiac Cath: PCI: CT Surgery: Holter monitor: EPS: PPM: CXR: Chest CT Scan: Radiography Diagnostic Testing: Radiology Impression Chest X-Ray 04/01/22 05:55 IMPRESSION: No radiographic evidence of acute cardiopulmonary disease. Electronically Signed: Stuart Milner MD at 5:24 EST , Physical Exam Const alert, oriented x3 and no apparent distress General Appearance: cooperative HEENT hearing grossly normal bilaterally Head and Scalp: atraumatic Eyes EOMs intact bilaterally Neck General: normal visual inspection Chest inspection of chest normal and palpation of chest normal Resp normal respiratory effort Auscultation: clear to auscultation bilaterally Cardio regular rate, regular rhythm, S1 normal heart sound and S2 normal heart sound Jugular Venous Distention: JVD GI normal to inspection, nondistended, normoactive bowel sounds Extremity normal capillary refill and no pedal edema Peripheral Pulses: Yes pulses 2+ throughout and femoral pulses present Skin no rashes or lesions noted Neuro oriented x3 and CN's II-XII intact bilaterally Psych Appearance: grossly normal and appropriate Assessment & Plan Assessment/Plan (1) Pacemaker: PLAN: Patient status post permanent pacemaker implantation. Chest x-ray demonst rates no abnormalities and pacemaker check demonstrates good function. We will follow-up in device clinic. (2) Essential hypertension: PLAN: We will continue current medications.
--- NOTE | 2022-04-01 08:17 | DCINST_ITS ---
Discharge Instructions Diet Discharge Diet: No restrictions Activity Discharge Activity: May Not Drive Additional Activity Instructions:: May shower or bathe on [day 3]. Do not scrub the incision or soak in the tub. Just wash with soap and let the water run over the incision. Gently pat dry with towel. Medications: Take your pain medication as directed. Refer to your discharge instruction sheet for a list of medications you are to take. Dressing / Incision Call your doctor if your incision/area has: Continuous Slow Oozing, Sudden Increased Bleeding, Increased Pain/ Swelling, Increased Redness, Foul Smelling Discharge and Swelling at the incision site Call your doctor if you observe: Fever of 101 or Higher, Shortness of breath, Dizziness, Fainting spells, Swelling in the ankles, Chest pain, Prolonged hiccupping and Increased palpitations (irregular heartbeat) Suture Line Care: Avoid Pulling/Pushing and Avoid Pinching/Bending Remove Dressing in: 3 days Additional Dressing/Incision Instructions:: When dressing is removed, wash and dry incision. Keep covered with a light bandage if it is rubbing against your clothing. Do not cover the incision with an airtight bandage. Change the bandage daily. Do not remove steri strips. The strips will fall off on their own. Follow Up Care Please Follow Up With: James Manuel MD When: Pacer follow up on April 10 at 8:30 AM in the device clinic Test Results: Test results from this visit will be discussed in further detail at your follow- up appointment, if applicable. Discharge Plan Admission Admit Date/Time: 03/31/22 14:30 Attending Provider: James Manuel Primary Care Provider: Jesus Cooley Discharge Orders/Prescriptions Prescriptions: No Action aspirin [Adult Aspirin Regimen] 81 mg tablet,delayed release (DR/EC) 81 mg PO DAILY meloxicam 15 mg tablet 15 mg PO DAILY atorvastatin 20 mg Tablet 20 mg PO DAILY amlodipine 10 mg Tablet 10 mg PO DAILY hydrochlorothiazide 25 mg Tablet 25 mg PO DAILY losartan 100 mg Tablet 100 mg PO DAILY finasteride 5 mg Tablet 5 mg PO DAILY testosterone 75 mg pellet 75 mg implant [id number] multivitamin Tablet 1 tab PO DAILY clonidine HCl 0.1 mg Tablet 0.1 mg PO BID iodine (kelp) 0.15 mg Tablet 12.5 mcg PO DAILY famotidine [Pepcid AC] 20 mg Tablet 20 mg PO DAILY fluticasone propionate 50 mcg/actuation [place],Suspension 1 spray INTRANASAL DAILY PRN (Reason: ALLERGIES) Rx Instructions: administer into each nostril Referrals / Follow Up: Jesus Cooley MD [Primary Care Provider] - Disposition Disposition (needs filled in before D/C Order can be placed): Home, Self Care
[2022-04-01 08:34] VITALS: BP 148/71; PULSE 63; RESP 16; TEMP 36.8; O2SAT 94
[2022-04-01] MEDS: cloNIDine HCl 0.1 MG Tablet PO (08:35)
[2022-04-01] MEDS: Atorvastatin Calcium 20 MG Tablet PO (08:35)
[2022-04-01] MEDS: Aspirin E.C. 81 MG Tablet PO (08:35)
[2022-04-01] MEDS: Famotidine 20 MG Tablet PO (08:35)
[2022-04-01] MEDS: Meloxicam 15 MG Tablet PO (08:36)
[2022-04-01] MEDS: Losartan Potassium 100 MG Tablet PO (08:36)
[2022-04-01] MEDS: amLODIPine 10 MG Tablet PO (08:36)
[2022-04-01] MEDS: Multivitamins,Therapeutic Tablet 1 TABLET PO (08:36)
[2022-04-01] MEDS: Finasteride 5 MG Tablet PO (08:36)
[2022-04-01] MEDS: hydroCHLOROthiazide 25 MG Tablet PO (08:36)
[2022-04-01 08:56] VITALS: BP 148/71; PULSE 63; RESP 16; TEMP 36.8; O2SAT 94
--- NOTE | 2022-04-01 09:38 | PHA.DC.MR ---
Pharmacy Service has performed discharge medication reconciliation for this patient. The patient's discharge medication list was reviewed for discrepancies and discrepancies were resolved. Home Medications amlodipine 10 mg tablet 10 mg PO DAILY blood pressure 08/17/21 atorvastatin 20 mg tablet 20 mg PO DAILY cholesterol 08/17/21 finasteride 5 mg tablet 5 mg PO DAILY prostate 08/17/21 hydrochlorothiazide 25 mg tablet 25 mg PO DAILY diuretic 08/17/21 losartan 100 mg tablet 100 mg PO DAILY blood pressure 08/17/21 aspirin 81 mg tablet,delayed release (Adult Aspirin Regimen) 81 mg PO DAILY heart health 09/24/21 meloxicam 15 mg tablet 15 mg PO DAILY bone health 10/03/21 testosterone 75 mg implant pellet 75 mg implant [id number] 10/03/21 clonidine HCl 0.1 mg tablet 0.1 mg PO BID blood pressure 03/18/22 famotidine 20 mg tablet (Pepcid AC) 20 mg PO DAILY reflux 03/18/22 fluticasone propionate 50 mcg/actuation nasal spray,suspension 1 spray intranasal DAILY PRN ALLERGIES 03/18/22 iodine (kelp) 0.15 mg tablet 12.5 mcg PO DAILY supplement 03/18/22 multivitamin 1 tab PO DAILY vitamin 03/18/22
== END 2022-04-01 08:20 | disposition home or self-care (01) ==
LOC: CLSP 14:34 → PCU 14:34
PROVIDERS: Admitting Provider Internal Medicine Cardiovascular Disease; PCP Family Medicine; Referring Provider Internal Medicine Cardiovascular Disease; Visit Provider Internal Medicine Cardiovascular Disease
DX: Z45.018 Encounter for adjustment and management of other part of cardiac pacemaker (principal); I44.1 Atrioventricular block, second degree; I10 Essential (primary) hypertension; Z79.899 Other long term (current) drug therapy; Z79.82 Long term (current) use of aspirin; E78.5 Hyperlipidemia, unspecified; E66.9 Obesity, unspecified; F17.200 Nicotine dependence, unspecified, uncomplicated
CPT/HCPCS: 33208; 71046; 71047; 81001; 93005; 99152; 99153; 99221; J7040; J7050; C1894; G0378

== ENCOUNTER → 2022-07-03 | Outpatient (CLI) | payer BC, SELFPAY ==
--- NOTE | 2022-07-03 08:22 | CYSPIN_PTH ---
PATIENT: CLIFTON DAVIS LOC: [facility] U#:[id number] AGE/SX: 71/M ROOM: RE07/03/[address]: Dr. Stewart Alex MD : 1950 BED: DIS: 07/03/2022 SPEC #: [id number] RECD: 07/04/22 06:48 STATUS: MILA RETutu #: [id number] MORRO: 07/03/22 08:[address]: Stewart Alex DEPT: CYTOLOGY RECD BY: Mylene Walsh ENTERED: 07/04/22 06:48 SP TYPE: CYSPIN FL OTHR DR: Dr. Cooper Cooley MD Tissues: Urine Procedures: Pap Stain (control) Special Stain Group II Cytospin Fluid HEADER OPERATION: Not noted PRE-OP DIAGNOSIS: Malignant neoplasm of bladder TISSUE SUBMITTED: Urine for cytology DIAGNOSIS CYTOLOGY Urine for cytology (cytospin): Atypical urothelial cells (AUC), Clarisa System Category III. Marked acute inflammation. See comment. AM:ovidio 07/04/2022 COMMENT The Clarisa System for urine cytology diagnostic categorization was used in the evaluation of this case. 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 CYTOLOGY STUDY Slides are reviewed. CYTOLOGY GROSS Received is 70 ml of yellow gold cloudy fluid labeled with the patient's name and and designated per the requisition as urine. Submitted for cytology preparation. / ovidio 07/03/2022 TC:? CPT: 01688
[2022-07-03 16:36] LABS: Cytology, Body Fluid / CSF SEE PATHOLOGY REPORT
== END | disposition home or self-care (01) ==
LOC: LABSPEC 16:13
PROVIDERS: PCP Family Medicine; Referring Provider Urology; Visit Provider Urology
DX: C67.8 Malignant neoplasm of overlapping sites of bladder (principal)
CPT/HCPCS: 88108; 88313

== ENCOUNTER → 2022-09-12 | Outpatient (CLI) | payer BC, SELFPAY ==
--- NOTE | 2022-09-12 10:49 | VDUE_ITS ---
Reason For Study: Lt Arm Swelling Right Proximal Left Proximal Right subclavian vein is spontaneous, widely Left jugular vein is spontaneous, widely patent, phasic, with no intraluminal patent, phasic, with no intraluminal echogenicity noted. echogenicity noted. Left subclavian vein is spontaneous, widely patent, phasic, with no intraluminal echogenicity noted. Left Arm Left axillary vein is spontaneous, patent, phasic, competent, compressible and demonstrates augmentation. Left brachial vein is compressible. Left cephalic vein is compressible. Left basilic vein is compressible. Left Lower Arm Left radial vein is compressible. Left ulnar vein is compressible. Patient Safety Preliminary faxed to Dr. Chandler's office. VL/Venous Duplex US, Unilateral Interpretation Summary Deep veins of the left upper extremity are patent and compressible segmentally. There is no evidence of deep vein thrombosis. The superficial veins of the left upper extremity, the basilic and cephalic veins, are patent and compressible. There is no evidence of left upper extremit y superficial thrombophlebitis involving the veins imaged. The right subclavian vein is paten t. Ordering Physician: Hunter Chandler V Referring Physician: Cooper Cooley MD Performed By: Leandro Lea RVT ???
== END | disposition home or self-care (01) ==
LOC: CVS 10:46
PROVIDERS: PCP Family Medicine; Referring Provider Internal Medicine Pulmonary Disease; Visit Provider Internal Medicine Pulmonary Disease
DX: R22.33 Localized swelling, mass and lump, upper limb, bilateral (principal)
CPT/HCPCS: 93971

== ENCOUNTER 2022-11-10 07:39 | Outpatient (CLI) | payer BC, SELFPAY ==
[2022-11-10 10:22] LABS: Hematocrit 48.2 % (40-54); Hemoglobin 15.9 g/dL (13.0-16.5); Mean Corpuscular Hgb 32.5 pg (27.0-32.0); Mean Corpuscular Volume 98.6 fL (80-94); Mean Platelet Vol. 11.4 fl (6.2-12.0); Platelet Count 228 K/mm3 (150-450); RBC Distribution Width CV 12.7 % (11.6-14.6); Red Blood Count 4.89 M/mm3 (4.6-6.2); White Blood Count 7.4 K/mm3 (4.4-11.0)
[2022-11-10 11:01] LABS: ALB/GLOB Ratio 1.1 RATIO (0.9-2.4); AST(SGOT) 11 U/L (15-37); Alanine Aminotransfer ALT/SGPT 20 U/L (16-61); Albumin, Serum 3.5 g/dL (3.2-5.0); Alkaline Phosphatase 68 U/L (45-117); Anion Gap 9 (5-15); BUN 28 mg/dL (7-18); BUN/Creat Ratio 23.9 RATIO (10-20); Calcium,Total 8.6 mg/dL (8.5-10.1); Chloride 106 mmol/L (98-107); Cholesterol 124 mg/dL (200); Creatinine, Serum 1.17 mg/dL (0.70-1.30); EST Glomerular Filtration Rate 65 mL/min (>60); Est Glom Filt Rate - Afr Amer 78 mL/min (>60); Estradiol 33.3 pg/mL; Globulin 3.2 g/dL (2.2-4.2); Glucose 101 mg/dL (74-106); High Density Lipoprotein 45 mg/dL; PSA,Total- Diagnostic 2.16 ng/mL (0.0-4.0); Potassium 3.4 mmol/L (3.5-5.1); Protein, Total 6.7 g/dL (6.4-8.2); Sodium Level 137 mmol/L (136-145); T4 Free Direct 0.93 ng/dL (0.76-1.46); Thyroid Stim Hormone (TSH) 1.12 uIU/mL (0.358-3.74); Triglycerides 80 mg/dL; Very Low Density Lipoprotein 16 mg/dL (5-40)
[2022-11-10 12:39] LABS: Vitamin B12 233 pg/mL (211-911); Vitamin D,25 Hydroxy 58.3 ng/mL
[2022-11-10 15:47] LABS: Free T3 2.6 pg/mL (2.18-3.98)
[2022-11-15 18:07] LABS: Testosterone, % Free 3.57 % (1.50-4.20); Testosterone, Free 25.13 ng/dL (5.00-21.00); Testosterone, Total 704 ng/dL (264-916); Thyroid Peroxidase AB < 9 IU/mL (0-34)
== END 2022-11-10 23:59 | disposition home or self-care (01) ==
LOC: MTLAB 07:42
PROVIDERS: PCP Family Medicine; Referring Provider Family Medicine; Visit Provider Family Medicine
DX: R68.82 Decreased libido (principal); E07.9 Disorder of thyroid, unspecified; E55.9 Vitamin D deficiency, unspecified; E53.8 Deficiency of other specified B group vitamins; R53.83 Other fatigue; I10 Essential (primary) hypertension; E78.5 Hyperlipidemia, unspecified; E03.9 Hypothyroidism, unspecified; R79.89 Other specified abnormal findings of blood chemistry; Z12.5 Encounter for screening for malignant neoplasm of prostate
CPT/HCPCS: 36415; 80053; 80061; 82306; 82607; 82670; 84153; 84402; 84403; 84439; 84443; 84481; 85027; 86376

== ENCOUNTER 2023-01-08 06:24 | Day surgery (SDC) | payer BC, SELFPAY ==
--- NOTE | 2023-01-08 | IMM_PTH ---
PATIENT: CLIFTON DAVIS LOC: EN U#:[id number] AGE/SX: 72/M ROOM: RE01/08/[address]: Dr. Sylvester Andrea MD : 1950 BED: DIS: 01/08/2023 SPEC #: [id number] RECD: 01/08/23 13:08 STATUS: MILA MONA #: [id number] MORRO: 01/08/23 00:[address]: Sylvester Andrea DEPT: IMMUNOHISTOCHEMISTRY RECD BY: Brett Powers ENTERED: 01/08/23 13:09 SP TYPE: IMMUNO OTHR DR: Dr. Cooper Cooley MD Tissues: Gastric mucous membrane Procedures: H Pylori (initial) PHYSICIAN & INSTITUTION [place] [address] SPECIMEN INFORMATION: Tissue Source: Gastric Antrum Clinical Info: History of colon polyps, GERD Specimen Number: [id number] CPT code: 04111 METHODOLOGY: Deparaffinized sections of prefer/formalin-fixed tissue or PAP/DQ stained slides are incubated with monoclonal/polyclonal antibodies/oligonucleotide probes. Localization is made via biotin free immunoperoxidase method. Appropriate controls are performed and reacted as expected. Results on target cell population are indicated in the following table: RESULTS: ANTIBODY / CLONE RESULT H Pylori (polyclonal) negative These tests were developed and their performance characteristics determined by [facility]. They may not have been cleared or approved by the U.S. Food and Drug Administration. The FDA has determined that such clearance or approval is not necessary. The above immunohistochemical/dualISH markers are ordered and reviewed by the Pathologist. INTERPRETATION: Gastric Antrum, biopsy: Negative for Helicobacter pylori organisms.
[2023-01-08] MEDS: Lactated Ringers 1,000 ML 15 ML IV (06:50)
[2023-01-08 06:52] VITALS: BP 127/69; PULSE 82; RESP 18; TEMP 36.7; O2SAT 98; BMI 32.8
--- NOTE | 2023-01-08 07:30 | EGD_PTH ---
PATIENT: CLIFTON DAVIS LOC: EN U#:[id number] AGE/SX: 72/M ROOM: RE01/08/[address]: Dr. Sylvester Andrea MD : 1950 BED: DIS: 01/08/2023 SPEC #: [id number] RECD: 01/08/23 11:14 STATUS: MILA MONA #: [id number] MORRO: 01/08/23 07:[address]: Sylvester Andrea DEPT: SURGICAL PATHOLOGY RECD BY: Mylene Walsh ENTERED: 01/08/23 12:16 SP TYPE: EGD BIOPSY NANCIE DR: Dr. Cooper Cooley MD Tissues: A - Gastric mucous membrane B - Esophagus, NOS C - Esophagus, NOS D - Gastric mucous membrane E - Ascending colon F - Sigmoid colon biopsy Procedures: Surgery Specimen Level IV HEADER OPERATION: Colonoscopy, EGD biopsy PRE-OP DIAGNOSIS: History of colon polyps, GERD TISSUE SUBMITTED: A. Gastric antrum, B. GE junction, C. Mid esophageal plaque, D. Gastric cardia mucosa abnormality, E. Ascending colon mucosa abnormality, F. Distal sigmoid MICROSCOPIC DIAGNOSIS A. Gastric antrum, biopsy: Mild gastritis. See microscopic description and comment. B. GE junction, biopsy: A fragment of gastroesophageal mucosa with chronic inflammation. Intestinal metaplasia (goblet cell metaplasia) not identified. C. Mid esophageal plaque, biopsy: A fragment of benign squamous mucosa. D. Gastric cardia mucosa abnormality, biopsy: A fragment of benign gastric mucosa. E. Ascending colon mucosa abnormality, biopsy: A fragment of colonic mucosa, no pathologic diagnosis. F. Distal sigmoid polyp, biopsy: Hyperplastic polyp. SJ: 01/09/2023 COMMENT A. The results of immunohistochemistry for Helicobacter pylori will be reported separately ([id number]). B: Alcian blue/PAS stain with matched control is used in the evaluation of the specimen. MICROSCOPIC DESCRIPTION Slides are reviewed. The specimen shows fragments of gastric mucosa with chronic inflammatory cell infiltrates in the lamina propria consisting of lymphocytes and plasma cells, consistent with mild chronic gastritis. GROSS DESCRIPTION A. Received is one container labeled with the patient name and designated gastric antrum. The specimen consists of one irregular fragment of light meehan soft tissue that measures 0.6 x 0.4 x 0.1 cm. The specimen is totally submitted in one cassette. B. Received is one container labeled with the patient name and designated GE junction. The specimen consists of one irregular fragment of light meehan soft tissue that measures 0.3 x 0.3 x 0.1 cm. The specimen is totally submitted in one cassette. C. Received is one container labeled with the patient name and designated mid esophageal plaque. The specimen consists of one irregular fragment of light meehan soft tissue that measures 0.5 x 0.2 x 0.1 cm. The specimen is totally submitted in one cassette. D. Received is one container labeled with the patient name and designated gastric cardia mucosa. The specimen consists of one irregular fragment of light meehan soft tissue that measures 0.7 x 0.3 x 0.1 cm. The specimen is totally submitted in one cassette. E. Received is one container labeled with the patient name and designated ascending colon mucosa. The specimen consists of multiple irregular fragments of light meehan soft tissue that in aggregate measure 0.5 x 0.2 x 0.1 cm. The specimen is totally submitted in one cassette. F. Received is one container labeled with the patient name and designated distal sigmoid polyp. The specimen consists of one irregular fragment of light meehan soft tissue that measures 0.2 x 0.1 x 0.1 cm. The specimen is totally submitted in one cassette. /SJ:cc:cw 01/08/23 TC:3 CPT: 93149 x 6, 64067
--- NOTE | 2023-01-08 07:39 | PCM.HP.BLA ---
History and Physical Date of Admission: 01/08/23 Date of Service: 11/21/22 MR#: [id number] Acct: [id number] Name: CLIFTON ADAMS Rep #: [id number] : 1950 Provider: Dr. Sylvester Andrea MD Age/Sex: 72/M Location: [facility] Status: Signed Intake Vital Signs 08/07/2307:23 11/21/2313:36 Height 5 ft 6 in 5 ft 7 in Weight: 216 lb 2 oz BMI 33.8 BP 165/73 H Blood Pressure Location Rt brachial Position Sitting Respiration 18 Pulse 80 Pulse Source Monitor Temp 98.0 F Temp Source Temporal Pulse Oximetry (%) 96 Oxygen Delivery Method room air Intake Visit Reasons: COLONOSCOPY Chief Complaint: Colonoscopy [employer] Required: No Is patient in pain?: No Allergies No Known Allergies Allergy (Verified 11/21/22 14:37) Medications amlodipine 10 mg tablet 10 mg PO DAILY blood pressure 08/17/21 [History Confirmed 11/21/22] atorvastatin 20 mg tablet 20 mg PO DAILY cholesterol 08/17/21 [History Confirmed 11/21/22] hydrochlorothiazide 25 mg tablet 25 mg PO DAILY diuretic 08/17/21 [History Confirmed 11/21/22] losartan 100 mg tablet 100 mg PO DAILY blood pressure 08/17/21 [History Confirmed 11/21/22] aspirin 81 mg tablet,delayed release (Adult Aspirin Regimen) 81 mg PO DAILY heart health 09/24/21 [History Confirmed 11/21/22] meloxicam 15 mg tablet 15 mg PO DAILY bone health 10/03/21 [History Confirmed 11/21/22] testosterone 75 mg implant pellet 75 mg implant [id number] hormone 10/03/21 [History Confirmed 11/21/22] famotidine 20 mg tablet (Pepcid AC) 20 mg PO DAILY reflux 03/18/22 [History Confirmed 11/21/22] fluticasone propionate 50 mcg/actuation nasal spray,suspension 1 spray intranasal DAILY PRN ALLERGIES 03/18/22 [History Confirmed 11/21/22] iodine (kelp) 0.15 mg tablet 12.5 mcg PO DAILY supplement 03/18/22 [History Confirmed 11/21/22] multivitamin 1 tab PO DAILY vitamin 03/18/22 [History Confirmed 09/22/23] doxazosin 4 mg tablet 4 mg PO QHS #90 tabs 08/06/22 [Rx Confirmed 11/21/22] vitamin B12 0.5 mg-folic acid 1 mg tablet 1 tab PO DAILY 11/21/22 [History Confirmed 11/21/22] [facility] Medical History (Updated 11/24/22 @ 11:[address] Sylvester Andrea MD) Asthma Back pain Cardiology follow-up encounter Constipation Essential hypertension Gastric reflux GERD (gastroesophageal reflux disease) History of colon polyps History of echocardiogram History of Holter monitoring History of pacemaker History of stress test Hyperlipidemia Low testosterone Mobitz type 2 second degree atrioventricular block Nicotine dependence Obesity Presence of cardiac pacemaker Prostate enlargement Sleep apnea Wears glasses Wears hearing aid Surgical History (Updated 11/21/22 @ 14:35 by Darlene Herrera) History of colonoscopy History of herniorrhaphy History of lithotripsy History of tonsillectomy History of transurethral resection of prostate History of vasectomy Family History Grandfather Heart disease paternalFather Heart disease CAD (coronary artery disease) Diabetes Hypertension Myocardial infarctionMother Hypertension Breast cancer Social History (Updated 11/21/22 @ 14:36 by Darlene Herrera) Smoking Status: Former smoker alcohol intake: never substance use type: does not use HPI HPI HPI: Patient is a 72-year-old male who presents for need to schedule surveillance colonoscopy secondary to history of polyps induration since prior colonoscopy exceeding recommendation of 3-year follow-up by 1 year (last colonoscopy 2018). They are referred for surgical consultation from Dr. Cooley. The results of prior scope were: Sessile serrated adenoma of the cecum. Mr. Adams states that the aftermath of his colonoscopy was very significant. He notes that he began having bloody bowel movement shortly after his colonoscopy that simply would not stop. After notifying Dr. Westfall's office he was instructed to come into the ER where he then underwent repeat endoscopy, but when the bleeding could not be controlled endoscopically he was sent emergently to [facility] for interventional radiology. He relates that he underwent a nuclear medicine test that showed that his bleeding had gel but stopped. Yet, he states he still underwent an intervention for repair of the left inguinal hernia that same admission. After the acute situation was settled, he was recommended interval for follow-up of 3 years based on his pathology. Patient states that he has a history of polyps from the scope previous to this study as well. He believes that the pathology managed from both. They describe their bowel habits as normal and occurring every 1 to 2 days. He denies any prolonged toilet time but does confess to some occasional significant straining. They have not noticed recent bleeding or dark stools. They do not regularly take fiber supplements although he states he previously took Metamucil. They do consume significant fiber in their regular diet. He confesses that he may simply not be drinking enough water. Patient has a family history of diverticulitis in his mother and he reports that his brother was just incidentally diagnosed with pancreatic cancer after presenting for management of a kidney stone. The patient's weight is stable. The patient is not prescribed anticoagulants/blood thinners. He reports that he takes a baby aspirin only Relevant prior abdominal surgical history includes: Left inguinal hernia repair and TURP Patient does have a mildly significant history of reflux (he denies any heartburn). He states that he takes 20 mg of Pepcid daily and he has no symptoms as long as he takes this medication. He notes that overall he minimizes intake of spicy foods. ROS General General: No weight change, appetite, fatigue, colon cancer, breast cancer or weakness HEENT HEENT: No difficulty swallowing, eye injury, eye surgery, swollen glands or hoarseness Endo Endocrine: No thyroid disease, diabetes mellitus, thyroid cancer, Hair loss, heat intolerance or cold intolerance Skin Skin: No rash or changing moles Breast Breast: No left breast lump, right breast lump, nipple discharge, breast pain, abnormal mammogram, abnormal US or breast enlargement Musc Musculoskeletal: Yes back problems; No arthritis, rheumatoid arthritis, gout or joint pain Cardio Cardiovascular: Yes pacemaker, heart disease and high blood pressure; No murmur, atrial fibrillation, heart attack, heart stent, palpitations, shortness of breat with exertion or chest pain Psych Psychiatric: No depression, anxiety or hearing voices Resp Respiratory: No shortness of breath, Yes sleep apnea, No cough, No COPD, Yes asthma, No emphysema and No wheezing Gastro Gastrointestinal: No abdominal pain, No nausea or vomiting, No diarrhea, Yes constipation, No blood in stool, Yes acid reflux, No hemorrhoids, No ulcers, No gallbladder problem and No black,tarry stools Bart Hematologic: Yes blood thinners, No blood disorders, No bleeding, No anemia and No blood clots Additional Details: Aspirin daily Neuro Neurologic: No system reviewed and no additional complaints, except as documented, No as per HPI, No abnormal gait, No abnormal hearing, No abnormal movements, No abnormal speech, No behavioral changes, No burning sensations, No confusion, No convulsions, No disequilibrium, No dizziness, No localized weakness, No frequent falls, No headache(s), No lack of coordination, No loss of vision, No memory loss, No numbness, No other visual disturbances, No radicular pain, No restless legs, No sensory deficit, No syncope, No tingling, No tremor(s), No weakness and No other Exam Const General: cooperative and healthy appearing Orientation: alert and awake Other: Patient appears to be dealing with a head cold Resp Effort & Inspection: normal respiratory effort Cardio Heart Sounds: murmur systolic GI Other: Obese, no scars, soft, nontender to palpation x4 quadrants Assessment and Plan Assessment and Plan (1) History of colon polyps: Status: Chronic Comment: This is a 72-year-old male who arrives for scheduling of a surveillance colonoscopy given a history of colonic polyps?specifically serrated adenoma of the right colon in 2019. Unfortunately his endoscopy was complicated by postprocedural bleeding that required repeat endoscopy as well as what I would assume would be CT angiography. Fortunately, patient's bleeding did remit spontaneously and even underwent a inguinal hernia repair of the same admission. Given his pathology, a 3-year follow-up was recommended. At this time patient denies any significant changes to his bowel movements that suggested a concern. From a familial history, he does not appear to be at any increased risk for colon cancer. Therefore, I have recommended that we proceed with a up-to-date surveillance colonoscopy at our mutual convenience preceded by a 2-day prep given his history of constipation. Patient was initially reluctant for the 2-day prep recommendation, but then did express understanding. I also informed him that I would not advise being overly aggressive with any significant polyp resections of the right colon and he expressed understanding of this information as well. Plan: Update surveillance colonoscopy under local MAC. 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 (2) GERD (gastroesophageal reflux disease): Status: Chronic Comment: Patient has a history of chronic GERD symptoms which he manages with daily Pepcid. He denies any prior history of prior EGD. Yet with his history as a male over the age of 50, tobacco use, obesity, and chronic GERD symptoms I have recommended screening for Ansari's esophagus. Patient is receptive of this recommendation we will look to add this prescreening to his colonoscopy discussed above. Plan: EGD in addition to colonoscopy under local MAC I have examined the patient and the H&P has been reviewed. There are no clinical changes since date of exam. Patient confirms that he completed a prep in anticipation of today's procedure and that his output is now relatively clear. He denies any other health updates. He confirms that he is prepared for both upper and lower endoscopy. Therefore we will proceed to the endoscopy suite for Ansari's screening with the EGD and surveillance of his colon with a history of sessile serrated polyp.
[2023-01-08 08:55] VITALS: BP 113/67; BP 127/69; PULSE 74; RESP 16; TEMP 36.5; O2SAT 99
--- NOTE | 2023-01-08 08:56 | OP.EGD_ITS ---
Patient Name: Zack Adams Procedure Date: 01/08/2023 7:07 AM Date of : 1950 Age: 72 Procedure: Upper GI endoscopy Indications: Screening for Ansari's esophagus in patient at risk for this condition, Esophageal reflux Providers: Sylvester Andrea MD Medicines: See the Anesthesia note for documentation of the administered medications Patient Profile: Refer to note in patient chart for documentation of history and physical. Complications: No immediate complications. Estimated blood loss: Minimal. Procedure: Pre-Anesthesia Assessment: - The heart rate, respiratory rate, oxygen saturations, blood pressure, adequacy of pulmonary ventilation, and response to care were monitored throughout the procedure. After obtaining informed consent, the endoscope was passed under direct vision. Throughout the procedure, the patient's blood pressure, pulse, and oxygen saturations were monitored continuously. The colonoscope was introduced through the mouth, and advanced to the second part of duodenum. The upper GI endoscopy was accomplished without difficulty. The patient tolerated the procedure well. Scope In: 7:46:54 AM Scope Out: 8:01:27 AM Total Procedure Duration Time 0 hours 14 minutes 33 seconds Findings: The duodenal bulb, first portion of the duodenum and second portion of the duodenum were normal. No biopsies or other specimens were collected for this exam. The gastric antrum was normal. Biopsies were taken with a cold forceps for Helicobacter pylori testing. Estimated blood loss was minimal. Localized mild mucosal changes characterized by ulceration were found in the cardia. Biopsies were taken with a cold forceps for histology. Estimated blood loss was minimal. The Z-line was regular and was found 41 cm from the incisors. Biopsies were taken with a cold forceps for histology. Estimated blood loss was minimal. A single 3 mm plaque was found in the middle third of the esophagus. Biopsies were taken with a cold forceps for histology. Estimated blood loss was minimal. Impression: - Normal duodenal bulb, first portion of the duodenum and second portion of the duodenum. No specimens collected. - Normal antrum. Biopsied. - Ulcerated mucosa in the cardia. Biopsied. - Z-line regular, 41 cm from the incisors. Biopsied. - A single plaque in the middle third of the esophagus. Biopsied. Recommendation: - Discharge patient to home (via wheelchair). - Resume previous diet today. - Continue present medications. - Await pathology results. - Telephone my office for pathology results in 1 week. Procedure Code(s): --- Professional --- 38578, Esophagogastroduodenoscopy, flexible, transoral; with biopsy, single or multiple Diagnosis Code(s): --- Professional --- K25.9, Gastric ulcer, unspecified as acute or chronic, without hemorrhage or perforation K22.89, Other specified disease of esophagus Z13.810, Encounter for screening for upper gastrointestinal disorder K21.9, Gastro-esophageal reflux disease without esophagitis CPT copyright 2021 [employer]. All rights reserved. The codes documented in this report are preliminary and upon flame gouger review may be revised to meet current compliance requirements. Sylvester Andrea MD 01/08/2023 8:55:52 AM This report has been signed electronically. Number of Addenda: 0 Note Initiated On: 01/08/2023 7:07 AM
--- NOTE | 2023-01-08 08:56 | OP.CCLET_ITS ---
01/08/2023 Jesus Cooley [address] [place] [address] Re : Upper GI endoscopy procedure for Zack Adams Dear Dr. Cooley This procedure was performed on December. My impressions and recommendations are as follows: Impressions : - Normal duodenal bulb, first portion of the duodenum and second portion of the duodenum. No specimens collected. - Normal antrum. Biopsied. - Ulcerated mucosa in the cardia. Biopsied. - Z-line regular, 41 cm from the incisors. Biopsied. - A single plaque in the middle third of the esophagus. Biopsied. Recommendations : - Discharge patient to home (via wheelchair). - Resume previous diet today. - Continue present medications. - Await pathology results. - Telephone my office for pathology results in 1 week. My findings are described in the full procedure note, which is enclosed. If I can be of further assistance, please feel free to contact me at Doctor phone number(s): , Work: . Sincerely, Sylvester Andrea MD 01/08/2023 8:55:52 AM This report has been signed electronically.
[2023-01-08 09:00] VITALS: BP 117/70; BP 127/69; PULSE 68; RESP 16; O2SAT 100
--- NOTE | 2023-01-08 09:04 | OP.COLON_ITS ---
Patient Name: Zack Adams Procedure Date: 01/08/2023 8:01 AM Date of : 1950 Age: 72 Procedure: Colonoscopy Indications: High risk colon cancer surveillance: Personal history of sessile serrated colon polyp (less than 10 mm in size) with no dysplasia Providers: Sylvester Andrea MD Medicines: See the Anesthesia note for documentation of the administered medications Patient Profile: Refer to note in patient chart for documentation of history and physical. Last Colonoscopy: more than 3 years ago. Complications: No immediate complications. Estimated blood loss: Minimal. Procedure: Pre-Anesthesia Assessment: - The heart rate, respiratory rate, oxygen saturations, blood pressure, adequacy of pulmonary ventilation, and response to care were monitored throughout the procedure. - The heart rate, respiratory rate, oxygen saturations, blood pressure, adequacy of pulmonary ventilation, and response to care were monitored throughout the procedure. After I obtained informed consent, the scope was passed under direct vision. Throughout the procedure, the patient's blood pressure, pulse, and oxygen saturations were monitored continuously. The colonoscope was introduced through the anus and advanced to the cecum, identified by the appendiceal orifice, IC valve and transillumination. The colonoscopy was performed without difficulty. The quality of the bowel preparation was good. Scope In: 8:02:55 AM Scope Withdrawal Time 0 hours 30 minutes 4 seconds Scope Out: 8:44:57 AM Total Procedure Duration Time 0 hours 42 minutes 2 seconds Findings: A 5 mm post polypectomy scar was found in the ascending colon. The scar tissue was healthy in appearance. Biopsies were taken with a cold forceps for histology. Estimated blood loss was minimal. Many small and large-mouthed diverticula were found in the sigmoid colon, transverse colon and hepatic flexure. No biopsies or other specimens were collected for this exam. A 5 mm polyp was found in the sigmoid colon. The polyp was semi-sessile. Biopsies were taken with a cold forceps for histology. Estimated blood loss was minimal. Internal hemorrhoids were found during retroflexion. The hemorrhoids were Grade II (internal hemorrhoids that prolapse but reduce spontaneously). No biopsies or other specimens were collected for this exam. The exam was otherwise without abnormality. Impression: - Post-polypectomy scar in the ascending colon. Biopsied. - Diverticulosis in the sigmoid colon, in the transverse colon and at the hepatic flexure. No specimens collected. - One 5 mm polyp in the sigmoid colon. Biopsied. - Internal hemorrhoids. No specimens collected. - The examination was otherwise normal. Recommendation: - Discharge patient to home (via wheelchair). - High fiber diet today. - Continue present medications. - Await pathology results. - Repeat colonoscopy date to be determined after pending pathology results are reviewed for surveillance based on pathology results. - Telephone my office for pathology results in 1 week. Procedure Code(s): --- Professional --- 19665, Colonoscopy, flexible; with biopsy, single or multiple Diagnosis Code(s): --- Professional --- Z86.010, Personal history of colonic polyps Z98.890, Other specified postprocedural states K64.1, Second degree hemorrhoids D12.5, Benign neoplasm of sigmoid colon K57.30, Diverticulosis of large intestine without perforation or abscess without bleeding CPT copyright 2021 [employer]. All rights reserved. The codes documented in this report are preliminary and upon plate maker review may be revised to meet current compliance requirements. Sylvester Andrea MD 01/08/2023 9:04:02 AM This report has been signed electronically. Number of Addenda: 0 Note Initiated On: 01/08/2023 8:01 AM
--- NOTE | 2023-01-08 09:04 | OP.CCLET_ITS ---
01/08/2023 Jesus Cooley [address] [place] [address] Re : Colonoscopy procedure for Zack Adams Dear Dr. Cooley This procedure was performed on December. My impressions and recommendations are as follows: Impressions : - Post-polypectomy scar in the ascending colon. Biopsied. - Diverticulosis in the sigmoid colon, in the transverse colon and at the hepatic flexure. No specimens collected. - One 5 mm polyp in the sigmoid colon. Biopsied. - Internal hemorrhoids. No specimens collected. - The examination was otherwise normal. Recommendations : - Discharge patient to home (via wheelchair). - High fiber diet today. - Continue present medications. - Await pathology results. - Repeat colonoscopy date to be determined after pending pathology results are reviewed for surveillance based on pathology results. - Telephone my office for pathology results in 1 week. My findings are described in the full procedure note, which is enclosed. If I can be of further assistance, please feel free to contact me at Doctor phone number(s): , Work: . Sincerely, Sylvester Andrea MD 01/08/2023 9:04:02 AM This report has been signed electronically.
[2023-01-08 09:05] VITALS: BP 127/69; BP 130/70; PULSE 67; RESP 16; O2SAT 100
[2023-01-08 09:10] VITALS: BP 127/69; BP 134/75; PULSE 62; RESP 16; TEMP 36.1; O2SAT 98
[2023-01-08 09:28] VITALS: BP 127/69
== END 2023-01-08 09:37 | disposition home or self-care (01) ==
LOC: EN 06:26 → AC 06:29
PROVIDERS: PCP Family Medicine; Referring Provider Family Medicine; Visit Provider Surgery
PROC: 0DJD8ZZ Inspection of Lower Intestinal Tract, Via Natural or Artificial Opening Endoscopic (ICD-10-PCS; CPT 45378; principal; 2023-01-08 07:25)
DX: Z12.11 Encounter for screening for malignant neoplasm of colon (principal); K63.5 Polyp of colon; K57.30 Diverticulosis of large intestine without perforation or abscess without bleeding; Z87.891 Personal history of nicotine dependence; Z86.010 Personal history of colon polyps; I10 Essential (primary) hypertension; E78.5 Hyperlipidemia, unspecified; K64.1 Second degree hemorrhoids; Z79.899 Other long term (current) drug therapy; Z95.0 Presence of cardiac pacemaker; Z79.82 Long term (current) use of aspirin; K21.9 Gastro-esophageal reflux disease without esophagitis; Z98.52 Vasectomy status; K25.9 Gastric ulcer, unspecified as acute or chronic, without hemorrhage or perforation; Z98.890 Other specified postprocedural states; K29.70 Gastritis, unspecified, without bleeding; D10.30 Benign neoplasm of unspecified part of mouth
CPT/HCPCS: 43239; 45380; 88305; 88342; J7120; J2405

== ENCOUNTER 2023-04-21 15:31 | Inpatient (IN) | payer OTHER, SELFPAY ==
[2023-04-21] VITALS (14 sets, daily range): BP systolic 110–181; BP diastolic 70–93; PULSE 83–105; RESP 13–33; TEMP 36.3–37.2; O2SAT 94–100; BMI 34.4
--- NOTE | 2023-04-21 15:59 | EKG12_ITS ---
Test Reason : CP Blood Pressure : / mmHG Vent. Rate : 091 BPM Atrial Rate : 091 BPM P-R Int : 154 ms QRS Dur : 180 ms QT Int : 410 ms P-R-T Axes : 062 -67 086 degrees QTc Int : 504 ms Atrial-sensed ventricular-paced rhythm Abnormal ECG Confirmed by CIARAN MARCANO, TRAMAINE ([id number]), editor city FESTUS BERG ([id number]) on 04/22/2023 9:10:00 AM Referred By: CHRIS/GAMA Confirmed By:TRAMAINE WAGONER MD
--- NOTE | 2023-04-21 16:04 | ED.VIS.CHEST ---
HPI History of Present Illness Chief Complaint: Chest Pain Informant: patient Onset/Context/Timing Onset: Yesterday Activity at onset: gradual Timing: Waxes and wanes Quality: Positive for Heaviness and Pressure Location: Substernal Current Severity: Mild Maximum Severity: Moderate Narrative Narrative: Patient presents with chest pressure that started yesterday. He states pain will wax and wane but has been been pretty persistent. He has not noticed if it is worse with exertion or not. He had some nausea this morning that is now resolved. Patient has a history of pacemaker placement in March 2022 secondary to Mobitz heart block. He denies any known history of coronary artery disease or stents. On review of records it appears he had a stress test in 2020. [facility] Medical History Asthma Back pain Cardiology follow-up encounter Constipation CPAP (continuous positive airway pressure) dependence Essential hypertension Gastric reflux GERD (gastroesophageal reflux disease) History of colon polyps History of echocardiogram History of Holter monitoring History of pacemaker History of stress test Hx of cardiac pacemaker Hyperlipidemia Low testosterone Mobitz type 2 second degree atrioventricular block Nicotine dependence Obesity Presence of cardiac pacemaker Prostate enlargement Sleep apnea Wears glasses Wears hearing aid Home Medications amlodipine 10 mg tablet 10 mg PO DAILY blood pressure 08/17/21 [History Last Taken 01/08/23] atorvastatin 20 mg tablet 20 mg PO DAILY cholesterol 08/17/21 [History Last Taken 03/18/22] hydrochlorothiazide 25 mg tablet 25 mg PO DAILY diuretic 08/17/21 [History Last Taken 03/18/22] losartan 100 mg tablet 100 mg PO DAILY blood pressure 08/17/21 [History Last Taken 01/08/23] aspirin 81 mg tablet,delayed release (Adult Aspirin Regimen) 81 mg PO DAILY heart health 09/24/21 [History Last Taken 01/04/23] meloxicam 15 mg tablet 15 mg PO DAILY bone health 10/03/21 [History Last Taken 03/18/22] testosterone 75 mg implant pellet 75 mg implant .Q 4MONTHS hormone 10/03/21 [History Last Taken Unknown] famotidine 20 mg tablet (Pepcid AC) 20 mg PO DAILY reflux 03/18/22 [History Last Taken 03/31/22] fluticasone propionate 50 mcg/actuation nasal spray,suspension 1 spray intranasal DAILY PRN ALLERGIES 03/18/22 [History Last Taken Unknown] multivitamin 1 tab PO DAILY vitamin 03/18/22 [History Last Taken 03/18/22] doxazosin 4 mg tablet 4 mg PO QHS #90 tabs 08/06/22 [Rx Last Taken Unknown] vitamin B12 0.5 mg-folic acid 1 mg tablet 1 tab PO DAILY 11/21/22 [History Last Taken Unknown] sildenafil 25 mg tablet (Viagra) 25 mg PO DAILY PRN sexual activity 04/21/23 [History Last Taken Unknown] Allergy/AdvReac Type Severity Reaction Status Date / Time No Known Allergies Allergy Verified 04/21/23 15:32 Family History Grandfather Heart disease paternal Father Heart disease CAD (coronary artery disease) Diabetes Hypertension Myocardial infarction Mother Hypertension Breast cancer Surgical History History of colonoscopy History of herniorrhaphy History of lithotripsy History of tonsillectomy History of transurethral resection of prostate History of vasectomy Social History Smoking Status: Current some day smoker tobacco type: smokeless tobacco alcohol intake: never substance use type: does not use ROS ROS ED Constitutional Constitutional ED: Denies chills or fever(s) Eyes Eyes: Denies discharge from eye(s) ENT ENT ED: Denies discharge from eye(s), rhinorrhea or sore throat Cardiovascular Cardiovascular: Reports chest pain; Denies palpitations Respiratory/Chest Respiratory/Chest: Denies cough or dyspnea Gastrointestinal Gastrointestinal: Reports nausea; Denies abdominal pain, diarrhea or vomiting Musculoskeletal Musculoskeletal: Denies back pain or extremity pain Integumentary Denies Abrasions or rash Neurologic Neurologic: Denies headache(s) or weakness Psychiatric Psychiatric: Denies anxiety or depression Allergic/Immunologic Allergic/Immunologic ED: Denies lip swelling or urticaria EXAM Physical Exam Const Vital Signs: 04/21/23 15:31 04/21/23 15:49 04/21/23 16:01 Temperature 97.8 F Temperature Source Temporal Pulse Rate 105 H Respiratory Rate 16 Respiratory Effort Normal Blood Pressure 168/84 H Blood Pressure Mean 112 Pulse Ox 100 Oxygen Delivery Method Room Air Room Air 04/21/23 17:34 Temperature Temperature Source Pulse Rate 99 Respiratory Rate 16 Respiratory Effort Blood Pressure 181/86 H Blood Pressure Mean 117 Pulse Ox 100 Oxygen Delivery Method Room Air Positive well nourished and well developed General Appearance ED: well developed HEENT Reports moist mucous membranes Eyes EOMs intact bilaterally Chest Wall inspection of chest normal and palpation of chest normal Resp normal respiratory effort and clear to auscultation bilaterally Cardio Rate: tachycardic GI soft to palpation and non-tender Extremity normal to inspection Neuro oriented x3 and no sensory deficits noted Motor Exam: strength 5/5 throughout Psych mental status grossly normal Skin no rashes or lesions noted Heart Score History: Moderately Suspicious ECG: Nonspecific Repolarization Age: >/= 65 years Risk Factors: 1 or 2 Risk Factors Troponin: >/=3 x Normal Limit Score: 7 MDM MDM MDM Narrative Medical decision making narrative: Patient placed on awake overnight monitor. IV line initiated. EKG obtained to evaluate for cardiac arrhythmia/ischemia. Chest x-ray obtained to evaluate for acute lung pathology, cardiac size, or mediastinal abnormality. Labwork obtained to evaluate for leukocytosis, anemia, and electrolyte derangement. History & Record Review Discussion w/independent historian: Patient Additional record(s) reviewed:: Prior outpatient record and Prior labs Lab Data Attestation: I reviewed the patient's lab results. Labs: Laboratory Results - last 24 hr 04/21/23 16:03 WBC 11.2 H RBC 5.09 Hgb 16.6 H Hct 48.9 MCV 96.1 H MCH 32.6 H MCHC 33.9 RDW Std Deviation 50.4 H RDW Coeff of Dulce 14.4 Plt Count 213 MPV 10.7 Immature Gran % (Auto) 0.400 Neut % (Auto) 83.1 H Lymph % (Auto) 8.4 L [place] % (Auto) 7.6 Eos % (Auto) 0.1 Baso % (Auto) 0.4 Absolute Neuts (auto) 9.3 H Absolute Lymphs (auto) 0.94 Nucleated RBC % 0 Sodium 138 Potassium 4.1 Chloride 105 Carbon Dioxide 27.0 Anion Gap 6 BUN 22 H Creatinine 1.13 Estim Creat Clear Calc 64.60 Est GFR (MDRD) Af Amer 82 Est GFR (MDRD) Non-Af 67 BUN/Creatinine Ratio 19.5 Glucose 111 H Calcium 10.7 H Troponin I High Sens 8333 H* Radiography Chest X-Ray - ED: 1 View, Read by ED Physician, Normal, Heart, Lungs and Mediastinum Diagnostic Testing: Clinical Impression(s) from Imaging Studies Chest X-Ray 04/21/23 16:11 IMPRESSION: No definite acute or significant abnormality seen. Electronically Signed: Dyllan Gonzalez MD at 16:48 EST , EKG Initial EKG: Attestation: I personally reviewed and interpreted this EKG as follows: Interpretation: - (Paced rhythm 91 bpm.) Follow-up EKG: Attestation: I personally reviewed and interpreted this EKG as follows: Interpretation: - (Paced at 93.) Treatment and Re-Evaluation :: CBC reveals white count 11.2 with a hemoglobin of 16.6. 83% neutrophils noted. Chemistry studies reveal a BUN of 22 and a creatinine 1.13. Initial troponin is elevated at 8333. Chest x-ray per my interpretation reveals pacer wires to be intact with no acute findings. EKG is paced. On repeat evaluation patient states he did have a low bit of nausea while here. He rates his chest pain at currently a 2. He is given a dose of morphine and Phenergan. I avoided Zofran as his QTc is right around 500. Repeat EKG is obtained and unchanged. Both EKGs were sent to Dr. Manuel, on-call for cardiology. He would like the patient to be placed on a heparin drip and nitro drip. He would like the patient to get 5 mg of IV Lopressor. I will speak with hospitalist regarding admission. Discharge Plan Triage Chief Complaint: Chest Pain ED Provider: Abida Orozco Dx/Rx/DC Orders Clinical Impression: Non-ST elevation OR (NSTEMI) Prescriptions: No Action aspirin [Adult Aspirin Regimen] 81 mg tablet,delayed release (DR/EC) 81 mg PO DAILY meloxicam 15 mg tablet 15 mg PO DAILY doxazosin 4 mg tablet 4 mg PO QHS Qty: 90 3RF vitamin U39-srens acid 0.5-1 mg tablet 1 tab PO DAILY atorvastatin 20 mg Tablet 20 mg PO DAILY amlodipine 10 mg Tablet 10 mg PO DAILY hydrochlorothiazide 25 mg Tablet 25 mg PO DAILY losartan 100 mg Tablet 100 mg PO DAILY testosterone 75 mg pellet 75 mg implant .Q 4MONTHS multivitamin Tablet 1 tab PO DAILY famotidine [Pepcid AC] 20 mg Tablet 20 mg PO DAILY fluticasone propionate 50 mcg/actuation [place],Suspension 1 spray INTRANASAL DAILY PRN (Reason: ALLERGIES) Rx Instructions: administer into each nostril sildenafil [Viagra] 25 mg tablet 25 mg PO DAILY PRN (Reason: sexual activity) Rx Instructions: administer 30 minutes to 4 hours before activity Primary Care Provider: Jesus Cooley Referrals: Jesus Cooley MD [Primary Care Provider] - Disposition Disposition: Acute Care Hospital [facility]
[2023-04-21] MEDS: 0.9% Normal Saline (1000mL) 1,000 ML 150 ML IV ×2 (16:08→22:09)
[2023-04-21] MEDS: Aspirin 81 MG TAB.CHEW 243 MG PO (16:08)
--- NOTE | 2023-04-21 16:11 | RAD_ITS ---
STUDY: X-RAY CHEST REASON FOR EXAM: Male, 72 years old. chest pain TECHNIQUE: Single AP portable view of the chest. COMPARISON: 04/01/2022. FINDINGS: The lungs are clear and expanded. There is no demonstrated pleural abnormality. Normal size heart. Pacemaker is seen with leads terminating in the right atrium and right ventricle. Normal mediastinum and shanelle. Normal visualized pulmonary arteries. Normal visualized aortic arch and descending thoracic aorta. Normal visualized thoracic spine. Normal visualized ribs, clavicles, and shoulders. There is no demonstrated abnormality of the visualized soft tissue structures of the upper abdomen. RAD/Chest 1 View (Portable) IMPRESSION: No definite acute or significant abnormality seen. Electronically Signed: Dyllan Gonzalez MD at 16:48 EST ,
[2023-04-21 16:22] LABS: Absolute Lymphocyte Count 0.94 X10^3/uL (0.83-4.51); Absolute Neutrophil Count 9.3 X10^3/uL (2.0-7.7); Basophil# 0.05 X10^3/uL; Basophil% 0.4 % (0-1); Eosinophil# 0.01 X10^3/uL; Eosinophils% 0.1 % (0-5); Hematocrit 48.9 % (40-54); Hemoglobin 16.6 g/dL (13.0-16.5); Lymphocyte # 0.94 X10^3/ul (0.83-4.51); Lymphocyte % 8.4 % (19-41); Mean Corp Hgb Conc 33.9 g/dL (32-36); Mean Corpuscular Hgb 32.6 pg (27.0-32.0); Mean Corpuscular Volume 96.1 fL (80-94); Mean Platelet Vol. 10.7 fl (6.2-12.0); Monocyte# 0.85 X10^3/uL; Monocyte% 7.6 % (0-10); NRBC Flagged by Analyzer 0 % (0-5); Neutrophil # 9.29 X10^3/uL (2.7-7.7); Neutrophil % 83.1 % (47-70); Platelet Count 213 K/mm3 (150-450); RBC Distribution Width CV 14.4 % (11.6-14.6); RBC Distribution Width SD 50.4 fl (35.1-43.9); Red Blood Count 5.09 M/mm3 (4.6-6.2); White Blood Count 11.2 K/mm3 (4.4-11.0)
[2023-04-21 17:24] LABS: Anion Gap 6 (5-15); BUN 22 mg/dL (7-18); BUN/Creat Ratio 19.5 RATIO (10-20); Calcium,Total 10.7 mg/dL (8.5-10.1); Chloride 105 mmol/L (98-107); Creatinine, Serum 1.13 mg/dL (0.70-1.30); EST Glomerular Filtration Rate 67 mL/min (>60); Est Glom Filt Rate - Afr Amer 82 mL/min (>60); Glucose 111 mg/dL (74-106); Potassium 4.1 mmol/L (3.5-5.1); Sodium Level 138 mmol/L (136-145); Troponin-I HS (w/2H Reflex) 8333 pg/mL (3.0-78.0)
--- NOTE | 2023-04-21 17:26 | EKG12_ITS ---
Test Reason : REPEAT Blood Pressure : / mmHG Vent. Rate : 093 BPM Atrial Rate : 093 BPM P-R Int : 154 ms QRS Dur : 182 ms QT Int : 400 ms P-R-T Axes : 056 -74 081 degrees QTc Int : 497 ms Atrial-sensed ventricular-paced rhythm Abnormal ECG Confirmed by CIARAN MARCANO, TRAMAINE ([id number]), senior technical editor FESTUS BERG ([id number]) on 04/22/2023 9:10:18 AM Referred By: Confirmed By:TRAMAINE WAGONER MD
[2023-04-21] MEDS: proMETHazine 25 MG/ML Syringe 12.5 MG IM (17:37)
[2023-04-21] MEDS: Morphine 4 MG/ML Syringe IV (17:37)
[2023-04-21] MEDS: Metoprolol Tartrate 5 MG/5 ML Vial IV (17:52)
[2023-04-21 18:14] LABS: Reflex Troponin-HS? (from REC) Y
[2023-04-21] MEDS: Nitroglycerin Infusion 250 ML 3 MG CONT INF (18:16)
--- NOTE | 2023-04-21 18:29 | HP.PCM.HOS_ITS ---
HPI - General General Date of Admission: 04/21/23 Date of Service: 04/21/23 Chief Complaint: Chest pain HPI Narrative CLIFTON DAVIS, is a 72 M hx of GERD, KYREE w/ cpap, tobacco use, mobitz II AV block w/ pace maker, HTN, and low testosterone who presented to [facility] 04/21/23 w/ chest pressure that started yesterday. Pain consistent but intensity waxes and wanes. Also had some associated nausea. In ED patient found to have troponin of 8333 and cardiology contacted who recommended nitro and heparin drips as well as Lopressor and they will see patient in consult. Hospitalist contacted for admission. Patient evaluated at bedside, endorses history as above but has had some improvement in his chest pressure, last felt nauseous about 30 minutes ago. Denies swelling in his legs, denies ever having pain like this before, no shortness of breath, no other focal complaints. [facility] Medical History (Updated 04/21/23 @ 18:[address] Bettie Hope MD) Asthma Back pain Cardiology follow-up encounter Constipation CPAP (continuous positive airway pressure) dependence Essential hypertension Gastric reflux GERD (gastroesophageal reflux disease) History of colon polyps History of echocardiogram History of Holter monitoring History of pacemaker History of stress test Hx of cardiac pacemaker Hyperlipidemia Low testosterone Mobitz type 2 second degree atrioventricular block Nicotine dependence Obesity Presence of cardiac pacemaker Prostate enlargement Sleep apnea Wears glasses Wears hearing aid Home Medications amlodipine 10 mg tablet 10 mg PO DAILY blood pressure 08/17/21 [History Last Taken 01/08/23] atorvastatin 20 mg tablet 20 mg PO DAILY cholesterol 08/17/21 [History Last Taken 03/18/22] hydrochlorothiazide 25 mg tablet 25 mg PO DAILY diuretic 08/17/21 [History Last Taken 03/18/22] losartan 100 mg tablet 100 mg PO DAILY blood pressure 08/17/21 [History Last Taken 01/08/23] aspirin 81 mg tablet,delayed release (Adult Aspirin Regimen) 81 mg PO DAILY heart health 09/24/21 [History Last Taken 01/04/23] meloxicam 15 mg tablet 15 mg PO DAILY bone health 10/03/21 [History Last Taken 03/18/22] testosterone 75 mg implant pellet 75 mg implant .Q 4MONTHS hormone 10/03/21 [History Last Taken Unknown] famotidine 20 mg tablet (Pepcid AC) 20 mg PO DAILY reflux 03/18/22 [History Last Taken 03/31/22] fluticasone propionate 50 mcg/actuation nasal spray,suspension 1 spray intranasal DAILY PRN ALLERGIES 03/18/22 [History Last Taken Unknown] multivitamin 1 tab PO DAILY vitamin 03/18/22 [History Last Taken 03/18/22] doxazosin 4 mg tablet 4 mg PO QHS #90 tabs 08/06/22 [Rx Last Taken Unknown] vitamin B12 0.5 mg-folic acid 1 mg tablet 1 tab PO DAILY 11/21/22 [History Last Taken Unknown] sildenafil 25 mg tablet (Viagra) 25 mg PO DAILY PRN sexual activity 04/21/23 [History Last Taken Unknown] Allergy/AdvReac Type Severity Reaction Status Date / Time No Known Allergies Allergy Verified 04/21/23 15:32 Family History Grandfather Heart disease paternal Father Heart disease CAD (coronary artery disease) Diabetes Hypertension Myocardial infarction Mother Hypertension Breast cancer Surgical History History of colonoscopy History of herniorrhaphy History of lithotripsy History of tonsillectomy History of transurethral resection of prostate History of vasectomy Social History Smoking Status: Current some day smoker tobacco type: smokeless tobacco alcohol intake: never substance use type: does not use ROS ROS Narrative General: Denies fever/chills HENT: Denies headache, chronic nasal congestion, denies sore throat EYES: Denies changes in vision Resp: Denies cough, denies shortness of breath Cardiac: Substernal chest pressure waxing and waning GI: Denies abdominal pain, denies changes in bowel, some intermittent nausea : Denies changes in urination Extremity: Denies swelling MSK: Denies weakness Neuro: Denies any numbness/tingling Heme: Denies any bleeding or bruising Skin: Denies rashes Psychiatric: No complaints voiced Vital Signs Vital Signs Vital Signs: 04/21/23 15:31 04/21/23 15:49 04/21/23 16:01 Temperature 97.8 F Temperature Source Temporal Pulse Rate 105 H Respiratory Rate 16 Respiratory Effort Normal Blood Pressure 168/84 H Blood Pressure Mean 112 Blood Pressure Source Blood Pressure Position Blood Pressure Location Pulse Ox 100 Oxygen Delivery Method Room Air Room Air 04/21/23 17:34 04/21/23 18:16 Temperature Temperature Source Pulse Rate 99 83 Respiratory Rate 16 Respiratory Effort Blood Pressure 181/86 H 164/89 H Blood Pressure Mean 117 114 Blood Pressure Source Monitor Blood Pressure Position Semi-Fowlers Blood Pressure Location Right Arm Pulse Ox 100 Oxygen Delivery Method Room Air Weight Weight: 99.932 kg Body Mass Index (BMI) 34.4 Physical Exam Narrative General: Denies fever/chills HENT: Denies headache, denies stuffy nose, denies sore throat EYES: Denies changes in vision Resp: Denies cough, denies shortness of breath Cardiac: Denies chest pain GI: Denies abdominal pain, denies changes in bowel, denies nausea/vomiting : Denies changes in urination Extremity: Denies swelling MSK: Denies weakness Neuro: Denies any numbness/tingling Heme: Denies any bleeding or bruising Skin: Denies rashes Psychiatric: No complaints voiced Results Lab / Micro Data 04/21/23 16:03 04/21/23 16:03 Labs: Laboratory Results - last 24 hr 04/21/23 16:03: WBC 11.2 H, RBC 5.09, Hgb 16.6 H, Hct 48.9, MCV 96.1 H, MCH 32.6 H, MCHC 33.9, RDW Std Deviation 50.4 H, RDW Coeff of Dulce 14.4, Plt Count 213, MPV 10.7, Immature Gran % (Auto) 0.400, Neut % (Auto) 83.1 H, Lymph % (Auto) 8.4 L, [place] % (Auto) 7.6, Eos % (Auto) 0.1, Baso % (Auto) 0.4, Absolute Neuts (auto) 9.3 H, Absolute Lymphs (auto) 0.94, Nucleated RBC % 0, Sodium 138, Potassium 4.1, Chloride 105, Carbon Dioxide 27.0, Anion Gap 6, BUN 22 H, Creatinine 1.13, Estim Creat Clear Calc 64.60, Est GFR (MDRD) Af Amer 82, Est GFR (MDRD) Non-Af 67, BUN/Creatinine Ratio 19.5, Glucose 111 H, Calcium 10.7 H, Troponin I High Sens 8333 H* 04/21/23 17:20: PT Cancelled, INR Cancelled, APTT Cancelled Imaging Radiology Impression Chest X-Ray 04/21/23 16:11 IMPRESSION: No definite acute or significant abnormality seen. Electronically Signed: Dyllan Gonzalez MD at 16:48 EST , Assessment & Plan Assessment/Plan (1) Non-ST elevation NE (NSTEMI): (2) Presence of cardiac pacemaker: (3) Nicotine dependence: (4) GERD (gastroesophageal reflux disease): (5) Sleep apnea: (6) Essential hypertension: PLAN: Plan #NSTEMI -Concern for type I -EKG atrial sensed, v paced -Trop >8000, will trend -Admit to telemetry -Heparin and nitro drips -Patient received Lopressor -Cardiology consult -Echocardiogram -Heart healthy diet, npo at midnight -Aspirin, statin -IVF -Hold home meloxicam #Hypertension -Patient to be on nitro drip -On amlodipine and losartan -Holding hctz -Recieved BB in ED #Hypercalcemia -Unclear significance -Pt being hydrated -Repeat in AM -Can order further workup in AM if not corrected -Holding hctz # History of Mobitz type II heart block with permanent pacemaker -Status post pacemaker placement #GERD -Continue famotidine #KYREE -Intermittent cpap compliance, will add cpap here #low testosterone -Uses implant q4 months #Tobacco use -Advise cessation -Nicotine replacement available if desired #DVT ppx: Heparin gtt Bettie Hope MD Time spent in the patient's overall evaluation,decision-making process, review of diagnostic data, adjustment of management, discussion with other providers, nursing nursing and ancillary staff involved in patient's care documentation, 57 Minutes Charges/Coding Visit Charges Inpatient E&M: 88297 Init Hosp L2
[2023-04-21] MEDS: Heparin Injection (Vial) 5,000 UNIT/ML VIAL 4000 UNIT IV (18:32)
[2023-04-21] MEDS: HEPARIN/D5w 25,000 UNITS 25,000 UNITS/250 ML IV.SOLN. 10 UNITS CONT INF (18:36)
--- NOTE | 2023-04-21 18:38 | ECHOCS_ITS ---
Version 2 Reason For Study: Chest pain, NSTEMI Procedure This was a 2D Doppler, Color Flow transthoracic echocardiogram. The study was technically difficult. Exam performed portable in patient room. Left Ventricle Normal LV size. Mild concentric left ventricular hypertrophy. The estimated ejection fraction is 20 %. There are regional wall motion abnormalities as specified. Anterior Nikolai : Akinetic. Mid- Anterior : Severely Hypokinetic. There is moderate to severe global hypokinesis of the left ventricle. Right Ventricle Normal RV size. ICD or pacer leads identified within the right ventricle. Normal systolic function. Atria Normal left atrium. Normal right atrium. Pulmonic Valve The pulmonic valve is not well visualized. Great Vessels Normal aortic root. The pulmonary artery is normal size. Inferior vena cava collapse with respiration. Pericardium/Pleural No pericardial effusion. Medication Diluted definity 3.5ml given slow IV push to enhance endocardial definition. MMode/2D Measurements & Calculations LVIDd: 5.1 cm IVSd: 1.3 cm Ao root diam: 3.5 cm LVIDs: 4.4 cm LVPWd: 1.3 cm RVDd: 3.6 cm FS: 14.5 % LAV(MOD-bp): 47.6 ml LVAd ap4: 37.2 cm2 LVAd ap2: 38.0 cm2 LAV(MOD-bp) Indexed: 22.6 ml/m2 LVLd ap4: 9.4 cm LVLd ap2: 9.6 cm LAV(MOD-sp2): 43.2 ml EDV(MOD-sp4): 124.6 ml EDV(MOD-sp2): 129.5 ml LAV(MOD-sp4): 52.2 ml EDV(sp4-el): 125.0 ml EDV(sp2-el): 128.0 ml LVAs ap4: 33.2 cm2 LVAs ap2: 32.2 cm2 LVLs ap4: 9.1 cm LVLs ap2: 8.9 cm ESV(MOD-sp4): 99.8 ml ESV(MOD-sp2): 96.9 ml ESV(sp4-el): 102.4 ml ESV(sp2-el): 99.0 ml EF(MOD-sp4): 19.9 % EF(MOD-sp2): 25.2 % EF(sp4-el): 18.0 % SV(MOD-sp4): 24.8 ml SV(MOD-sp2): 32.6 ml SV(sp4-el): 22.6 ml LA A4 area: 17.7 cm2 LA dimension(2D): 4.4 cm RA A4 area: 17.0 cm2 TAPSE: 2.1 cm Time Measurements MV dec time: 0.18 sec Doppler Measurements & Calculations MV E max nick: 57.1 cm/sec Lat Peak E' Nick: 6.5 cm/sec Med Peak E' Nick: 5.2 cm/sec MV A max nick: 66.4 cm/sec E/E' lat: 8.7 E/E' med: 11.1 MV E/A: 0.86 MV dec slope: 311.7 cm/sec2 Ao V2 max: 116.7 cm/sec LV V1 max: 73.8 cm/sec Ao max P.4 mmHg LV V1 max P.2 mmHg PA V2 max: 79.7 cm/sec ECHO/Echo Complete W/ Contrast Interpretation Summary Normal LV size. The estimated ejection fraction is 20 %. Mild concentric left ventricular hypertrophy. There are regional wall motion abnormalities as specified. ICD or pacer leads identified within the right ventricle. Contrast injection was performed. Ordering Physician: Bettie Hpoe Referring Physician: Cooper Cooley MD Performed By: Moraima Camara RDCS
[2023-04-21 18:45] LABS: Prothrombin Time (Protime)PT. 13.5 SECONDS (11.7-14.9)
[2023-04-21 18:46] LABS: Partial Thromboplast Time 27.9 Seconds (24.1-36.2)
--- NOTE | 2023-04-21 18:52 | CON.PCM.CA_ITS ---
Assessment & Plan Assessment/Plan (1) Non-ST elevation SD (NSTEMI): PLAN: Patient presents with a non-ST elevation myocardial infarction. It appears that his discomfort started over 24 hours ago. At this time he appears to be having minimal to no discomfort and the plan will be to start him on intravenous nitroglycerin, intravenous heparin, continue his beta-laura and schedule him for cardiac catheterization within the next 12 hours. Certainly if you should have more chest discomfort he should let us know and we would expedite the above. This has been discussed with him and his in the presence of the nurse and all in agreement. (2) Presence of cardiac pacemaker: PLAN: Patient is status post pacemaker implantation for second-degree AV block. He will continue to follow-up in the device clinic. (3) Essential hypertension: PLAN: Patient has a history of hypertension. His blood pressure does not appear to be very well-controlled. Plan will be to continue the current medical therapy. (4) Hyperlipidemia: PLAN: He will continue aggressive risk factor modification with high intensity statin. (5) Nicotine dependence: PLAN: Smoking cessation has been emphasized. HPI Consult Data Date of Consult: 04/21/23 HPI Narrative HPI Narrative: CLIFTON DAVIS, is a 72 M who presents to the emergency room after experiencing chest discomfort which started last night but he did not want to present to the emergency room then. He called the office this afternoon complaining of chest discomfort and was asked to go to the nearest emergency room which was near [place] but he decided to drive to [place]. He presented to the emergency room still complaining of chest discomfort radiating to both arms. His blood pressure was noted to be markedly elevated. His EKG demonstrated sinus rhythm with a paced rhythm. Cardiology was called for evaluation and management he was started on intravenous nitroglycerin as well as heparin. He does have a history of hypertension, tobacco abuse, and previous episodes of bradycardia which were evaluated with a 7-day event monitor which eventually demonstrated second-degree AV block with A-V dissociation for which she eventually underwent permanent pacemaker implantation in March 2022. He had previously had a stress test which demonstrated no evidence of ischemia. His echocardiogram had also demonstrated preserved ejection fraction. He has had no dizziness or diaphoresis he has been following up in the pacemaker clinic. His cardiac enzymes on presentation to the emergency room were already noted to be over 8000. At this time he was having minimal discomfort and at the time that I saw him he reported that his discomfort was almost gone on the intravenous nitroglycerin. [facility] Medical History (Updated 04/21/23 @ 18:[address] Bettie Hope MD) Asthma Back pain Cardiology follow-up encounter Constipation CPAP (continuous positive airway pressure) dependence Essential hypertension Gastric reflux GERD (gastroesophageal reflux disease) History of colon polyps History of echocardiogram History of Holter monitoring History of pacemaker History of stress test Hx of cardiac pacemaker Hyperlipidemia Low testosterone Mobitz type 2 second degree atrioventricular block Nicotine dependence Obesity Presence of cardiac pacemaker Prostate enlargement Sleep apnea Wears glasses Wears hearing aid Home Medications amlodipine 10 mg tablet 10 mg PO DAILY blood pressure 08/17/21 [History Last Taken 01/08/23] atorvastatin 20 mg tablet 20 mg PO DAILY cholesterol 08/17/21 [History Last Taken 03/18/22] hydrochlorothiazide 25 mg tablet 25 mg PO DAILY diuretic 08/17/21 [History Last Taken 03/18/22] losartan 100 mg tablet 100 mg PO DAILY blood pressure 08/17/21 [History Last Taken 01/08/23] aspirin 81 mg tablet,delayed release (Adult Aspirin Regimen) 81 mg PO DAILY heart health 09/24/21 [History Last Taken 01/04/23] meloxicam 15 mg tablet 15 mg PO DAILY bone health 10/03/21 [History Last Taken 03/18/22] testosterone 75 mg implant pellet 75 mg implant .Q 4MONTHS hormone 10/03/21 [History Last Taken Unknown] famotidine 20 mg tablet (Pepcid AC) 20 mg PO DAILY reflux 03/18/22 [History Last Taken 03/31/22] fluticasone propionate 50 mcg/actuation nasal spray,suspension 1 spray intranasal DAILY PRN ALLERGIES 03/18/22 [History Last Taken Unknown] multivitamin 1 tab PO DAILY vitamin 03/18/22 [History Last Taken 03/18/22] doxazosin 4 mg tablet 4 mg PO QHS #90 tabs 08/06/22 [Rx Last Taken Unknown] vitamin B12 0.5 mg-folic acid 1 mg tablet 1 tab PO DAILY 11/21/22 [History Last Taken Unknown] sildenafil 25 mg tablet (Viagra) 25 mg PO DAILY PRN sexual activity 04/21/23 [History Last Taken Unknown] Allergy/AdvReac Type Severity Reaction Status Date / Time No Known Allergies Allergy Verified 04/21/23 15:32 Family History Grandfather Heart disease paternal Father Heart disease CAD (coronary artery disease) Diabetes Hypertension Myocardial infarction Mother Hypertension Breast cancer Surgical History History of colonoscopy History of herniorrhaphy History of lithotripsy History of tonsillectomy History of transurethral resection of prostate History of vasectomy Social History Smoking Status: Current some day smoker tobacco type: smokeless tobacco alcohol intake: never substance use type: does not use ROS Constitutional Constitutional: Denies fever(s) or weight loss Eyes Eyes: Reports systems reviewed and no addt'l complaints, except as documented ENT HEENT: Reports systems reviewed and no addt'l complaints, except as documented Cardiovascular Cardiovascular: Reports chest pain at rest and chest pain with activity; Denies dyspnea at rest, dyspnea on exertion, edema, palpitations or paroxysmal nocturnal dyspnea Respiratory/Chest Respiratory/Chest: Denies dyspnea on exertion, productive cough, shortness of breath at rest or shortness of breath with exertion Gastrointestinal Gastrointestinal: Denies change in bowel habits, nausea, vomiting or weight changes Genitourinary Genitourinary: Denies difficulty urinating Musculoskeletal Musculoskeletal: Denies joint stiffness or muscle weakness Integumentary Integumentary: Denies lesions Neurologic Neurologic: Denies dizziness or syncope Psychiatric Psychiatric: Denies anxiety Endocrine Endocrinology: Denies excessive sweating or fatigue Hematologic/Lymphatic Hematologic/Lymphatic: Denies anemia Allergic/Immunologic Allergic/Immunologic: Denies seasonal rhinorrhea Physical Exam Const alert, oriented x3 and no apparent distress General Appearance: cooperative HEENT hearing grossly normal bilaterally Head and Scalp: atraumatic Eyes EOMs intact bilaterally Neck General: normal visual inspection Chest inspection of chest normal and palpation of chest normal Resp normal respiratory effort Auscultation: clear to auscultation bilaterally Cardio regular rate, regular rhythm, S1 normal heart sound and S2 normal heart sound Jugular Venous Distention: JVD GI normal to inspection, nondistended, normoactive bowel sounds Extremity normal capillary refill and no pedal edema Peripheral Pulses: Yes pulses 2+ throughout and femoral pulses present Skin no rashes or lesions noted Neuro oriented x3 and CN's II-XII intact bilaterally Psych Appearance: grossly normal and appropriate Risk Stratification Risk Stratification Applicable: Yes Age >/= 65: Yes >/= 3 CAD Risk Factors (HTN, HLD, DM, family hx of CAD, or current smoker): Yes Aspirin Use in the Past 7 Days: Yes Severe Angina (>/= episodes in 24 hours): Yes EKG ST Changes >/= 0.5mm: No Positive Cardiac Marker: Yes JIMMY Risk Stratification Score: 5 JIMMY % Risk: 25% Risk Objective Data Vital Signs: Vital Signs Temp Pulse Resp BP Pulse Ox O2 Del Method 97.8 F 91 13 149/86 H 96 Room Air 04/21/23 15:31 04/21/23 18:38 04/21/23 18:38 04/21/23 18:41 04/21/23 18:38 04/21/23 18:38 Oxygen Delivery Method Room Air Weight: 220 lb 5 oz Body Mass Index (BMI) 34.4 Intake & Output: Intake and Output for Last 24 Hours 04/19/23 04/20/23 04/21/23 23:59 23:59 23:59 Intake Total 331.25 / 331.25 Balance 331.25 / 331.25 Lab / Micro Data 04/21/23 16:03 04/21/23 16:03 Labs: Laboratory Results - last 24 hr 04/21/23 16:03: WBC 11.2 H, RBC 5.09, Hgb 16.6 H, Hct 48.9, MCV 96.1 H, MCH 32.6 H, MCHC 33.9, RDW Std Deviation 50.4 H, RDW Coeff of Dulce 14.4, Plt Count 213, MPV 10.7, Immature Gran % (Auto) 0.400, Neut % (Auto) 83.1 H, Lymph % (Auto) 8.4 L, Towns % (Auto) 7.6, Eos % (Auto) 0.1, Baso % (Auto) 0.4, Absolute Neuts (auto) 9.3 H, Absolute Lymphs (auto) 0.94, Nucleated RBC % 0, Sodium 138, Potassium 4.1, Chloride 105, Carbon Dioxide 27.0, Anion Gap 6, BUN 22 H, Creatinine 1.13, Estim Creat Clear Calc 64.60, Est GFR (MDRD) Af Amer 82, Est GFR (MDRD) Non-Af 67, BUN/Creatinine Ratio 19.5, Glucose 111 H, Calcium 10.7 H, Troponin I High Sens 8333 H* 04/21/23 17:20: PT Cancelled, INR Cancelled, APTT Cancelled 04/21/23 18:30: PT 13.5, INR 1.0, APTT 27.9 Cardiology Labs/Tests 04/21/23 16:03: WBC 11.2 H, RBC 5.09, Hgb 16.6 H, Hct 48.9, MCV 96.1 H, MCH 32.6 H, MCHC 33.9, Plt Count 213, MPV 10.7, Immature Gran % (Auto) 0.400, Neut % (Auto) 83.1 H, Lymph % (Auto) 8.4 L, Towns % (Auto) 7.6, Eos % (Auto) 0.1, Baso % (Auto) 0.4, Absolute Neuts (auto) 9.3 H, Nucleated RBC % 0, Sodium 138, Potassium 4.1, Chloride 105, Carbon Dioxide 27.0, Anion Gap 6, BUN 22 H, Creatinine 1.13, Est GFR (MDRD) Af Amer 82, Est GFR (MDRD) Non-Af 67, BUN/Cre atinine Ratio 19.5, Glucose 111 H, Calcium 10.7 H 04/21/23 17:20: PT Cancelled, INR Cancelled, APTT Cancelled 04/21/23 18:30: PT 13.5, INR 1.0, APTT 27.9 Rhythm: EKG: ECHO: Stress Test: Cardiac Cath: PCI: CT Surgery: Holter monitor: EPS: PPM: CXR: Chest CT Scan: Radiography Diagnostic Testing: Radiology Impression Chest X-Ray 04/21/23 16:11 IMPRESSION: No definite acute or significant abnormality seen. Electronically Signed: Dyllan Gonzalez MD at 16:48 EST ,
[2023-04-21 18:58] LABS: Troponin-I HS 11943 pg/mL (3.0-78.0)
--- NOTE | 2023-04-21 19:58 | EKG12_ITS ---
Test Reason : NSR/PACED Blood Pressure : / mmHG Vent. Rate : 078 BPM Atrial Rate : 078 BPM P-R Int : 182 ms QRS Dur : 158 ms QT Int : 412 ms P-R-T Axes : 040 -79 085 degrees QTc Int : 469 ms Atrial-sensed ventricular-paced rhythm Abnormal ECG When compared with ECG of 21-APR-2023 17:29, MANUAL COMPARISON REQUIRED, DATA IS UNCONFIRMED Confirmed by CIARAN MARCANO, TRAMAINE ([id number]), editor trade journal FESTUS BERG ([id number]) on 04/22/2023 9:13:11 AM Referred By: Confirmed By:TRAMAINE WAGONER MD
[2023-04-21] MEDS: Doxazosin 4 MG Tablet PO (21:57)
--- NOTE | 2023-04-21 23:37 | NURSING ---
Pts primary rn aware [place] troponin result of >[id number] at this time.
[2023-04-21 23:40] LABS: Troponin-I HS > 25000 pg/mL (3.0-78.0)
[2023-04-22] VITALS (14 sets, daily range): BP systolic 97–130; BP diastolic 59–72; PULSE 66–89; RESP 16–19; TEMP 36.3–36.6; O2SAT 94–99; BMI 34.5
[2023-04-22] MEDS: Metoprolol Tartrate 25 MG Tablet PO ×2 (00:31→06:22)
[2023-04-22 01:08] LABS: Partial Thromboplast Time 52.7 Seconds (24.1-36.2)
--- NOTE | 2023-04-22 04:23 | CPS ---
Pt does not want to wear cpap tonight. Pt told RN.
[2023-04-22] MEDS: 0.9% Normal Saline (1000mL) 1,000 ML 150 ML IV (05:26)
--- NOTE | 2023-04-22 05:55 | EKG12_ITS ---
Test Reason : AM EKG Blood Pressure : / mmHG Vent. Rate : 070 BPM Atrial Rate : 070 BPM P-R Int : 200 ms QRS Dur : 148 ms QT Int : 424 ms P-R-T Axes : 033 -76 089 degrees QTc Int : 457 ms Atrial-sensed ventricular-paced rhythm Abnormal ECG When compared with ECG of 21-APR-2023 23:50, MANUAL COMPARISON REQUIRED, DATA IS UNCONFIRMED Confirmed by CIARAN MARCANO, TRAMAINE ([id number]), deputy editor in chief FESTUS BERG ([id number]) on 04/23/2023 6:20:55 AM Referred By: Confirmed By:TRAMAINE WAGONER MD
[2023-04-22] MEDS: amLODIPine 10 MG Tablet PO (06:22)
[2023-04-22] MEDS: Atorvastatin Calcium 80 MG Tablet PO (06:22)
[2023-04-22] MEDS: Losartan Potassium 100 MG Tablet PO (06:22)
[2023-04-22] MEDS: Aspirin E.C. 81 MG Tablet PO (06:22)
[2023-04-22 07:04] LABS: Hematocrit 41.2 % (40-54); Hemoglobin 13.8 g/dL (13.0-16.5); Mean Corp Hgb Conc 33.5 g/dL (32-36); Mean Corpuscular Hgb 32.9 pg (27.0-32.0); Mean Corpuscular Volume 98.1 fL (80-94); Mean Platelet Vol. 10.4 fl (6.2-12.0); Platelet Count 168 K/mm3 (150-450); RBC Distribution Width CV 14.2 % (11.6-14.6); RBC Distribution Width SD 51.1 fl (35.1-43.9); White Blood Count 10.2 K/mm3 (4.4-11.0)
--- NOTE | 2023-04-22 07:08 | NURSING ---
pt transported to rags laborer and verbal report given.
--- NOTE | 2023-04-22 07:08 | NURSING ---
pt bladder scanned residual 460ml. spoke with Dr. Gerber, order for straight cath >500 given.
[2023-04-22 07:24] LABS: International Normalized Ratio 1.2; Prothrombin Time (Protime)PT. 14.7 SECONDS (11.7-14.9)
[2023-04-22 07:25] LABS: Partial Thromboplast Time 35.4 Seconds (24.1-36.2)
[2023-04-22 07:52] LABS: Anion Gap 5 (5-15); BUN 24 mg/dL (7-18); BUN/Creat Ratio 24.3 RATIO (10-20); Calcium,Total 8.5 mg/dL (8.5-10.1); Chloride 108 mmol/L (98-107); Cholesterol 132 mg/dL (200); Creatinine, Serum 0.99 mg/dL (0.70-1.30); EST Glomerular Filtration Rate 79 mL/min (>60); Est Glom Filt Rate - Afr Amer 95 mL/min (>60); Glucose 114 mg/dL (74-106); High Density Lipoprotein 61 mg/dL; Magnesium 1.5 mg/dL (1.6-2.6); Potassium 3.8 mmol/L (3.5-5.1); Sodium Level 139 mmol/L (136-145); Thyroid Stim Hormone (TSH) 0.32 uIU/mL (0.358-3.74); Triglycerides 113 mg/dL; Very Low Density Lipoprotein 23 mg/dL (5-40)
--- NOTE | 2023-04-22 08:04 | CASEMGMT ---
Insurance review for hospitals In-network with?[facility] Choice insurance if transfer is recommended is as follows:?[facility], [place], [facility], [facility], [facility], [facility], [facility] ([facility]), [facility], [facility], and . Shonda Mckeon, Discharge Planning Asst.
--- NOTE | 2023-04-22 08:13 | PCM.PN.CARD ---
Subjective Subjective Patient seen and evaluated. Underwent angiography this morning. Pain-free overnight. Objective Data Vital Signs: Vital Signs Temp Pulse Resp BP Pulse Ox O2 Del Method 99.0 F 75 18 106/65 97 Room Air 04/21/23 19:49 04/22/23 06:22 04/21/23 19:49 04/22/23 06:22 04/21/23 22:00 04/21/23 22:00 Oxygen Delivery Method Room Air Weight: 220 lb 10.923 oz Body Mass Index (BMI) 34.5 Intake & Output: Intake and Output for Last 24 Hours 04/20/23 04/21/23 04/22/23 23:59 23:59 23:59 Intake Total 381.15 / 393.15 1167.42 / 1167.42 Output Total Balance 381.15 / 393.15 1157.42 / 1157.42 Lab / Micro Data 04/22/23 06:50 04/22/23 06:50 Labs: Laboratory Results - last 24 hr 04/21/23 16:03: WBC 11.2 H, RBC 5.09, Hgb 16.6 H, Hct 48.9, MCV 96.1 H, MCH 32.6 H, MCHC 33.9, RDW Std Deviation 50.4 H, RDW Coeff of Dulce 14.4, Plt Count 213, MPV 10.7, Immature Gran % (Auto) 0.400, Neut % (Auto) 83.1 H, Lymph % (Auto) 8.4 L, Turner % (Auto) 7.6, Eos % (Auto) 0.1, Baso % (Auto) 0.4, Absolute Neuts (auto) 9.3 H, Absolute Lymphs (auto) 0.94, Nucleated RBC % 0, Sodium 138, Potassium 4.1, Chloride 105, Carbon Dioxide 27.0, Anion Gap 6, BUN 22 H, Creatinine 1.13, Estim Creat Clear Calc 64.60, Est GFR (MDRD) Af Amer 82, Est GFR (MDRD) Non-Af 67, BUN/Creatinine Ratio 19.5, Glucose 111 H, Calcium 10.7 H, Troponin I High Sens 8333 H* 04/21/23 17:20: PT Cancelled, INR Cancelled, APTT Cancelled 04/21/23 18:30: PT 13.5, INR 1.0, APTT 27.9, Troponin I High Sens 50613 H* 04/21/23 22:41: Troponin I High Sens > 95266 H* 04/22/23 00:31: APTT 52.7 H 04/22/23 06:50: WBC 10.2, RBC 4.20 L, Hgb 13.8, Hct 41.2, MCV 98.1 H, MCH 32.9 H, MCHC 33.5, RDW Std Deviation 51.1 H, RDW Coeff of Dulce 14.2, Plt Count 168, MPV 10.4, PT 14.7, INR 1.2, APTT 35.4, Sodium 139, Potassium 3.8, Chloride 108 H, Carbon Dioxide 26.0, Anion Gap 5, BUN 24 H, Creatinine 0.99, Estim Creat Clear Calc 73.80, Est GFR (MDRD) Af Amer 95, Est GFR (MDRD) Non-Af 79, BUN/Creatinine Ratio 24.3 H, Glucose 114 H, Calcium 8.5, Magnesium 1.5 L, Triglycerides 113, Cholesterol 132, LDL Cholesterol 48, VLDL Cholesterol 23, HDL Cholesterol 61, TSH 0.32 L Cardiology Labs/Tests 04/21/23 16:03: WBC 11.2 H, RBC 5.09, Hgb 16.6 H, Hct 48.9, MCV 96.1 H, MCH 32.6 H, MCHC 33.9, Plt Count 213, MPV 10.7, Immature Gran % (Auto) 0.400, Neut % (Auto) 83.1 H, Lymph % (Auto) 8.4 L, Turner % (Auto) 7.6, Eos % (Auto) 0.1, Baso % (Auto) 0.4, Absolute Neuts (auto) 9.3 H, Nucleated RBC % 0, Sodium 138, Potassium 4.1, Chloride 105, Carbon Dioxide 27.0, Anion Gap 6, BUN 22 H, Creatinine 1.13, Est GFR (MDRD) Af Amer 82, Est GFR (MDRD) Non-Af 67, BUN/Creatinine Ratio 19.5, Glucose 111 H, Calcium 10.7 H 04/21/23 17:20: PT Cancelled, INR Cancelled, APTT Cancelled 04/21/23 18:30: PT 13.5, INR 1.0, APTT 27.9 04/22/23 00:31: APTT 52.7 H 04/22/23 06:50: WBC 10.2, RBC 4.20 L, Hgb 13.8, Hct 41.2, MCV 98.1 H, MCH 32.9 H, MCHC 33.5, Plt Count 168, MPV 10.4, PT 14.7, INR 1.2, APTT 35.4, Sodium 139, Potassium 3.8, Chloride 108 H, Carbon Dioxide 26.0, Anion Gap 5, BUN 24 H, Creatinine 0.99, Est GFR (MDRD) Af Amer 95, Est GFR (MDRD) Non-Af 79, BUN/Creatinine Ratio 24.3 H, Glucose 114 H, Calcium 8.5, Magnesium 1.5 L, Triglycerides 113, Cholesterol 132, LDL Cholesterol 48, VLDL Cholesterol 23, HDL Cholesterol 61 Rhythm: EKG: ECHO: Stress Test: Cardiac Cath: PCI: CT Surgery: Holter monitor: EPS: PPM: CXR: Chest CT Scan: Radiography Diagnostic Testing: Radiology Impression Chest X-Ray 04/21/23 16:11 IMPRESSION: No definite acute or significant abnormality seen. Electronically Signed: Dyllan Gonzalez MD at 16:48 EST , Physical Exam Const alert, oriented x3 and no apparent distress General Appearance: cooperative HEENT hearing grossly normal bilaterally Head and Scalp: atraumatic Eyes EOMs intact bilaterally Neck General: normal visual inspection Chest inspection of chest normal and palpation of chest normal Resp normal respiratory effort Auscultation: clear to auscultation bilaterally Cardio regular rate, regular rhythm, S1 normal heart sound and S2 normal heart sound Jugular Venous Distention: JVD GI normal to inspection, nondistended, normoactive bowel sounds Extremity normal capillary refill and no pedal edema Peripheral Pulses: Yes pulses 2+ throughout and femoral pulses present Skin no rashes or lesions noted Neuro oriented x3 and CN's II-XII intact bilaterally Psych Appearance: grossly normal and appropriate Assessment & Plan Assessment/Plan (1) Non-ST elevation CT (NSTEMI): PLAN: Patient presents with a non-ST elevation myocardial infarction. Cardiac catheterization demonstrated triple-vessel disease with severe disease noted in the proximal LAD, moderately severe in the mid LAD and distal LAD. The third obtuse marginal branch also has disease as well as the large posterolateral branch. Patient will undergo PCI of the LAD to start with and then other vessels to follow-up. Patient also has evidence of left ventricular systolic dysfunction and his medication dosages will be optimized. (2) Presence of cardiac pacemaker: PLAN: Patient is status post pacemaker implantation for second-degree AV block. He will continue to follow-up in the device clinic. (3) Essential hypertension: PLAN: Patient has a history of hypertension. His blood pressure does not appear to be very well-controlled. Plan will be to continue the current medical therapy. (4) Hyperlipidemia: PLAN: He will continue aggressive risk factor modification with high intensity statin. (5) Nicotine dependence: PLAN: Smoking cessation has been emphasized.
--- NOTE | 2023-04-22 08:28 | CL.D_ITS ---
Patient Name: CLIFTON DAVIS Study Date: 04/22/2023 Performing: James Manuel MD Ht: 67 inches 170.18 cm : 1950 Wt: 220.68 lbs 100.1 kg Age: 72 Gender: male BSA: 2.11 PROCEDURE(S) PERFORMED DC01-(94462)LHC/COR/LV IC12-([id number])NAOMI W/WO PTCA, SINGLE CORONARY ARTERY CLINICAL PROFILE AND INDICATIONS Indications: ACS <= 24 hrs Heart Failure: None Stress/Imaging Stress/Image Study Performed: No CONCLUSIONS Triple-vessel disease with severe disease involving a calcified small left anterior descending artery, obtuse marginal vessels which is small and a large dominant right coronary artery with moderate disease. Left ventricular dysfunction present. RECOMMENDATIONS Will recommend PCI over coronary bypass surgery due to the poor targets. DESCRIPTION OF PROCEDURE The patient arrived to the procedure lab. The risks and benefits of the procedure as well as a full description of our services here and current unavailability of surgical backup were fully explained to the patient and/or their significant other prior to the catheterization. The Timeout was completed, verifying the correct patient and procedure. The patient's procedural site was prepped and draped in the usual fashion. Local anesthetic was given subcutaneously to right radial region with Lidocaine 2%. Using a modified Seldinger technique, arterial access was obtained via the right radial artery, a 6Fr sheath was inserted. Left Coronary Artery selective angiography was performed in multiple views using a 5 Fr. 4.0 Shelby catheter. Right Coronary Artery selective angiography was then performed in multiple views using a 5 Fr. 4.0 Shelby catheter. Left Ventriculography was performed in GRAHAM projection using a 5 Fr. Pigtail catheter. LV to AO pullback pressures were then recorded. CORONARY ANGIOGRAPHY DOMINANCE: Right Dominant LEFT HEART ASSESSMENT Left Ventricular Ejection Fraction: by LV Gram 25 % Global Hypokinesis - Moderate Depressed Left Ventricular systolic function LEFT MAIN: Distal left main with 20% stenosis LEFT ANTERIOR DESCENDING ARTERY: Small vessel with proximal calcified portion with 90% stenosis at the bifurcating diagonal and in the midsegment with an 80% stenosis in the distal segment with another 80% stenosis. CIRCUMFLEX ARTERY: Nondominant vessel medium size with a third obtuse marginal branch with an 80% stenosis. Mild diffuse disease noted throughout the vessel. RIGHT CORONARY ARTERY: Large dominant vessel. Proximal eccentric 30% stenosis. Vessel then trifurcates into a posterior descending artery with mild disease, and 2 posterolateral vessels. There is a large 1 with 2 areas of 70% stenosis noted. COMPLICATIONS PROCEDURE MEDICATIONS Fentanyl 50 mcg IV Versed 1 mg IV Versed 1 mg IV Oxygen: 2 L/min via nasal cannula Brilinta 180 mg PO @ 04/22/2023 07:52:39 Heparin given IA 04/22/2023 07:36:42 Heparin 8000 unit(s) IV 04/22/2023 07:50:45 Nitro 100 mcg IC 04/22/2023 08:11:31 Verapamil 2.5mg, Ntg 100mcgs, 3000 units of Heparin given IA 04/22/2023 07:36:42 SUMMARY OF HEMODYNAMIC DATA Time AIR REST ECG 07:19:53 AO 97/64 (78) SA 07:39:41 LV 109/15, 25 07:45:24 LV 109/19, 26 07:45:33 LV 106/14, 27 07:46:46 LV 107/20, 27 07:46:55 LVp 109/23, 27 07:47:03 AOp 108/55 (77) 07:47:10 Signed By James Manuel MD On 04/22/2023 08:28:21 James Manuel MD
[2023-04-22 09:30] LABS: ACT Activated Clotting Time 287 sec (74-137)
[2023-04-22 09:30] LABS: ACT Activated Clotting Time 336 sec (74-137)
--- NOTE | 2023-04-22 09:30 | EKG12_ITS ---
Test Reason : POSTOP Blood Pressure : / mmHG Vent. Rate : 066 BPM Atrial Rate : 066 BPM P-R Int : 180 ms QRS Dur : 174 ms QT Int : 454 ms P-R-T Axes : 025 -72 086 degrees QTc Int : 475 ms Normal sinus rhythm Left axis deviation Non-specific intra-ventricular conduction block Left ventricular hypertrophy with repolarization abnormality ( R in aVL , [place] product ) Possible Lateral infarct , age undetermined Inferior infarct , age undetermined Abnormal ECG When compared with ECG of 22-APR-2023 06:05, MANUAL COMPARISON REQUIRED, DATA IS UNCONFIRMED Confirmed by CIARAN MARCANO, TRAMAINE ([id number]), visual effects editor FESTUS BERG ([id number]) on 04/24/2023 6:46:36 AM Referred By: Confirmed By:TRAMAINE WAGONER MD
--- NOTE | 2023-04-22 09:31 | CL.I_ITS ---
Patient Name: CLIFTON DAVIS Study Date: 04/22/2023 Performing: Chrissie Manzo MD Ht: 67 inches 170.18 cm : 1950 Wt: 221 lbs 100.1 kg Age: 72 Gender: male BSA: 2.11 PROCEDURE(S) PERFORMED IC12-(57635/C9600)NAOMI W/WO PTCA, SINGLE CORONARY ARTERY CLINICAL PROFILE AND CO-MORBIDITIES Indications: ACS <= 24 hrs Heart Failure: None Stress/Imaging Stress/Image Study Performed: No CONCLUSIONS Successful PTCA/NAOMI Prox LAD using Mena [place] 2.5x15 mm, post-dilated using 2.75 mm balloon. Ostial D1 dilated using 2.0 mm balloon. Successful NAOMI Mid LAD using [place] 2.25x15 mm RECOMMENDATIONS ASA Indefinitley Brilinta for at least 12 months DESCRIPTION OF PROCEDURE The patient arrived to the procedure lab. The risks and benefits of the procedure as well as a full description of our services here and current unavailability of surgical backup were fully explained to the patient and/or their significant other prior to the catheterization. The Timeout was completed, verifying the correct patient and procedure. The patient's procedural site was prepped and draped in the usual fashion. Local anesthetic was given subcutaneously to right radial region with Lidocaine 2% Using a modified Seldinger technique,arterial access was obtained via the right radial artery, a 6Fr sheath was inserted. Left Coronary Artery selective angiography was performed in multiple views using a 5 Fr. 4.0 [place] catheter. Right Coronary Artery selective angiography was then performed in multiple views using a 5 Fr. 4.0 [place] catheter. Left Ventriculography was performed in GRAHAM projection using a 5 Fr. Pigtail catheter. LV to AO pullback pressures were then recorded.The images were reviewed and options discussed. A decision was then made to proceed with an Intervention, IVUS or other adjunct procedure. XB 3.0 Guide catheter was inserted and engaged into the LCA. Runthrough Guide wire was advanced to the LAD. Runthrough Guide wire was inserted as a freida wire into diagonal Emerge 2.00x12 Balloon catheter was inserted. PTCA balloon inflated at 10 atms for 10 secs. PTCA balloon inflated at 10 atms for 10 secs. Balloon catheter was removed Angiogram performed post balloon dilatation. Emerge 2.00x12 Balloon catheter was inserted. PTCA balloon inflated at 10 atms for 32 secs. PTCA balloon inflated at 10 atms for 22 secs. Angiogram performed post balloon dilatation. Mena [place] 2.25x15 Drug Eluting stent was inserted. Drug Eluting stent was removed intact, failed to cross lesion Mena [place] 2.5x15 Drug Eluting stent was inserted. Angiogram performed post stent deployment. Emerge 2.00x8 Balloon catheter was inserted. PTCA balloon inflated at 14 atms for 18 secs. PTCA balloon inflated at 14 atms for 35 secs. Angiogram performed post balloon dilatation. NC Emerge 2.50x12 Balloon catheter was inserted. PTCA balloon inflated at 12 atms for 7 secs. PTCA balloon inflated at 18 atms for 13 secs. Angiogram performed post balloon dilatation. NC Emerge 2.50x12 Balloon catheter was inserted. PTCA balloon inflated at 20 atms for 18 secs. Angiogram performed post balloon dilatation. Emerge 2.00x8 Balloon catheter was inserted. PTCA balloon inflated at 14 atms for 27 secs. Angiogram performed post balloon dilatation. NC Emerge 2.75x8 Balloon catheter was inserted. PTCA balloon inflated at 20 atms for 14 secs. PTCA balloon inflated at 20 atms for 9 secs. PTCA balloon inflated at 20 atms for 9 secs. Angiogram performed post balloon dilatation. Emerge 2.00x8 Balloon catheter was inserted. PTCA balloon inflated at 14 atms for 50 secs. Angiogram performed post balloon dilatation. Mena [place] 2.25x15 Drug Eluting stent was inserted. Angiogram performed post stent deployment. NC Emerge 2.25x12 Balloon catheter was inserted. PTCA balloon inflated at 12 atms for 6 secs. PTCA balloon inflated at 12 atms for 6 secs. PTCA balloon inflated at 12 atms for 5 secs. Emerge 2.00x8 Balloon catheter was inserted. PTCA balloon inflated at 10 atms for 1.05 min Nc Emerge 2.75x8 Balloon catheter was inserted. PTCA balloon inflated at 14 atms for 6 secs. Angiogram performed post balloon dilatation. Runthrough Guide wire was advanced to the LAD. The arterial sheath was flushed and pulled and a TR Band was applied for hemostasis w/ 12ml air INTERVENTION INFORMATION LESION SITE: LAD (Proximal) Lesion Complexity: High/C, lesion at bifurcation: Yes, lesion length: 14 mm, culprit lesion: Yes Pre Stenosis: 99 % Pre intervention JIMMY flow: 2 PROCEDURE: Drug Eluting Stent with pre and post dilatation Post Stenosis: 0 % Post intervention JIMMY flow: 3 Lesion Devices: Terumo .014 180cm Runthrough Extra Floppy straight Melvin Sci EMERGE MR 2.00x12 BALLOON Medtronic 2.50 x 15 MENA FRONTIER NAOMI Melvin Sci EMERGE MR 2.00x08 BALLOON Melvin Sci NC EMERGE MR 2.75x08 BALLOON LESION SITE: LAD (Mid) Lesion Complexity: Non-High/Non-C, lesion length: 13 mm Pre Stenosis: 80 % Pre intervention JIMMY flow: 3 PROCEDURE: Drug Eluting Stent with post dilatation Post Stenosis: 0 % Post intervention JIMMY flow: 3 Lesion Devices: Terumo .014 180cm Runthrough Extra Floppy straight Medtronic 2.25 x 15 MENA FRONTIER NAOMI Melvin Sci NC EMERGE MR 2.50x12 BALLOON Melvin Sci NC EMERGE MR 2.25x12 BALLOON COMPLICATIONS No Complications PROCEDURE MEDICATIONS Fentanyl 50 mcg IV Versed 1 mg IV Versed 1 mg IV Oxygen: 2 L/min via nasal cannula Brilinta 180 mg PO @ 04/22/2023 07:52:39 Heparin given IA 04/22/2023 07:36:42 Heparin 8000 unit(s) IV 04/22/2023 07:50:45 Heparin 2000 unit(s) IV 04/22/2023 08:36:16 Nitro 100 mcg IC 04/22/2023 08:11:31 Nitro 100 mcg IC 04/22/2023 08:11:31 Verapamil 2.5mg, Ntg 100mcgs, 3000 units of Heparin given IA 04/22/2023 07:36:42 IV Bolus: .9 NaCl 300ml total 04/22/2023 09:08:07 SUMMARY OF HEMODYNAMIC DATA Time AIR REST ECG 07:19:53 AO 97/64 (78) SA 07:39:41 LV 109/15, 25 07:45:24 LV 109/19, 26 07:45:33 LV 106/14, 27 07:46:46 LV 107/20, 27 07:46:55 LVp 109/23, 27 07:47:03 AOp 108/55 (77) 07:47:10 Signed By Jovany, Chrissie MD On 04/22/2023 09:30:42 Chrissie Manzo MD
[2023-04-22] MEDS: Famotidine 20 MG Tablet PO (10:04)
[2023-04-22] MEDS: Carvedilol 6.25 MG Tablet PO ×2 (10:04→20:22)
[2023-04-22] MEDS: Spironolactone 25 MG Tablet 12.5 MG PO (10:04)
[2023-04-22] MEDS: Empagliflozin 10 MG Tablet PO (10:04)
--- NOTE | 2023-04-22 10:11 | CRPHASE1 ---
Patient Communication Patient Information Former Patient:: Phase I and Phase II PHII Cardiac Rehab Discussed with Patient:: Yes Guide to Cardiac Rehab Given to Patient:: Yes Cardiac Rehab Facility Choice List Given to Patient:: Yes Communication to Cardiac Rehab Choice Program [facility] CR PHII:: Communication Given to CR Sessions:: 36 sessions - 3 days/wk, 12 weeks Medical/Surgical History Medical History IA:: No Angina:: Yes Congestive Heart Failure: Cardiomyopathy:: Yes Valve Disease/Replacement:: No Asthma:: Yes Diabetes:: No Diabetes Type I:: No Diabetes Type II:: No Hypertension:: Yes Dyslipidemia:: Yes Arrhythmias:: Yes CVA/TIA: GERD:: Yes Cancer:: No Renal:: No Thyroid:: No Surgical History Pacemaker:: Yes Cardiac Rehabilitation Info Program Information Cardiac Rehabilitation Program Information: Cardiac Rehab The cardiac rehab team at [facility] consists of highly skilled exercise physiologists, nurses, respiratory therapists and physicians working together with you. Our purpose is to help you have a full recovery and achieve the goals you set for yourself. Over the years many of our patients have returned to activities they assumed they would never do again! We can help restore your confidence and motivation to make lifestyle changes that can have a significant impact on your health and quality of life! We can help answer questions and concerns you may have about exercise, lifestyle, medications, diet, stress and anxiety which are common following a hospitalization. WE monitor ECG and vital signs during exercise and discuss your progress with you and report to your physician(s). Cardiac Rehab is proven to help reduce readmissions, improve functional capacity and lower recurrence of problems with your heart. Our Cardiac Rehab program is Certified by the [place] [employer]-V[employer] and Pulmonary [employer] (AACVPR) and Accredited by the [place] [employer] through our [facility]. You can contact us at . We invite you to call us with your questions or to get started in our program. If you have other questions or concerns be sure to ask your physician/provider during your follow-up visit. WE look forward to seeing you!
--- NOTE | 2023-04-22 10:12 | CRPH1.INSTRU ---
General Education Discussed with Patient CAD and cardiac anatomy and function:: Patient communicates acknowledgment Explanation of diagnoses and procedures:: Patient communicates acknowledgment Sign/Symptoms of [place]:: Patient communicates acknowledgment Antiplatelet therapy: Patient communicates acknowledgment Proper use of NTG-SL: Patient communicates acknowledgment Emergency procedures and activation of EMS: Patient communicates acknowledgment Compliance of all prescribed medications: Patient communicates acknowledgment Smoking Risk Factors Patient Nicotine/Smoking Risk Factors Are:: Cigarettes Recommendations Recommendations Include:: Smoking cessation strategies/Smoking packet Response Code Nicotine/Smoking Response Code:: Patient communicates acknowledgment Dyslipidemia Recommendations Recommendations Include:: Lipid profile not available Response Code Dyslipidemia Response Code:: Patient communicates acknowledgment Overweight/Obesity Risk Factors Patient Overweight/Obesity Risk Factors Are:: Obesity - > or = 30 Recommendations Recommendations Include:: Weight loss of 5-10%, Reduced calorie diet and Exercise 5-7 times/week Response Code Overweight/Obesity:: Patient communicates acknowledgment Hypertension Recommendations Recommendations Include:: Maintain BP <130/85 Response Code Hypertension:: Patient communicates acknowledgment Heart Disease Recommendations Recommendations Include:: Educated family members of their risk Response Code Heart Disease Response Code:: Patient communicates acknowledgment Diabetes Risk Factors Patient Diabetes Risk Factors Are:: No documented hx of diabetes Response Code Diabetes:: Patient communicates acknowledgment Metabolic Syndrome Recommendations Recommendations Include:: Does not meet criteria Response Code Metabolic Syndrome Response Code:: Patient communicates acknowledgment Sedentary Risk Factors Patient Sedentary Risk Factors Are:: Lack of regular exercise Recommendations Recommendations Include:: Benefits of regular exercise, Discussed home walking program and Monitored Outpatient Cardiac Rehab Response Code Sedentary Response Code:: Patient communicates acknowledgment Stress Risk Factors Patient Stress Risk Factors Are:: Patient denies stress as a risk factor Recommendations Recommendations Include:: Identification of stressors, and assessment of coping skills and Stress management techniques Response Code Stress Response Code:: Patient communicates acknowledgment
--- NOTE | 2023-04-22 11:20 | CASEMGMT ---
RN CM Face to Face with patient for initial transition planning/care coordination assessment. RN CM introduced self and role at [facility]. Patient lying in bed, alert and oriented. Patient willing to participate in assessment and is able to answer all questions appropriately. Care providers, pharmacy, and demographics verified. Patient wishes to discharge home, denies need for home health at this time. Patient states he has no further needs or concerns at this time. CM to follow for discharge planning needs that may arise. PCP: Yasir Specialists: Kaleb, thai masseur; Isai, urologist; Geraldine, caterer's aide; Preferred Pharmacy: [facility] Insurance: [facility] Prescription Benefit: yes Living Will/HPOA:yes, daughter Roxanne Carlos LNOK: daughter, significant other Living Arrangements: Patient lives alone in a single floor apartment with no steps to enter. Patient is independent at home. Transportation: self, significant other DME/HHC: Patient has cane, grab bars, and cpap at home. NO previous HHC or SNF. Disposition Plan: Patient to discharge home with family support and follow-up plans in place. Lashaun LUCIO, RN, CM
--- NOTE | 2023-04-22 12:25 | PCM.PN.HOSP ---
Reason for Visit Reason for Visit: Diagnoses Nicotine dependence, unspecified, uncomplicated (04/21/23) Sleep apnea, unspecified (04/21/23) Essential (primary) hypertension (04/21/23) Non-ST elevation (NSTEMI) myocardial infarction (04/21/23) Gastro-esophageal reflux disease without esophagitis (04/21/23) Presence of cardiac pacemaker (04/21/23) Objective Data Objective Data Vital Signs: Vital Signs Temp Pulse Resp BP Pulse Ox O2 Del Method 99.0 F 70 16 105/67 97 Room Air 04/21/23 19:49 04/22/23 11:00 04/22/23 11:00 04/22/23 11:00 04/22/23 11:00 04/22/23 11:59 Oxygen Delivery Method Room Air Weight: 220 lb 10.923 oz Body Mass Index (BMI) 34.5 Intake & Output: Intake and Output for Last 24 Hours 04/20/23 04/21/23 04/22/23 23:59 23:59 23:59 Intake Total 381.15 / 393.15 1951.92 / 1951.92 Output Total 110 / 110 Balance 381.15 / 393.15 1841.92 / 1841.92 Lab / Micro Data 04/22/23 06:50 04/22/23 06:50 Labs: Laboratory Results - last 24 hr 04/21/23 16:03: WBC 11.2 H, RBC 5.09, Hgb 16.6 H, Hct 48.9, MCV 96.1 H, MCH 32.6 H, MCHC 33.9, RDW Std Deviation 50.4 H, RDW Coeff of Dulce 14.4, Plt Count 213, MPV 10.7, Immature Gran % (Auto) 0.400, Neut % (Auto) 83.1 H, Lymph % (Auto) 8.4 L, [place] % (Auto) 7.6, Eos % (Auto) 0.1, Baso % (Auto) 0.4, Absolute Neuts (auto) 9.3 H, Absolute Lymphs (auto) 0.94, Nucleated RBC % 0, Sodium 138, Potassium 4.1, Chloride 105, Carbon Dioxide 27.0, Anion Gap 6, BUN 22 H, Creatinine 1.13, Estim Creat Clear Calc 64.60, Est GFR (MDRD) Af Amer 82, Est GFR (MDRD) Non-Af 67, BUN/Creatinine Ratio 19.5, Glucose 111 H, Calcium 10.7 H, Troponin I High Sens 8333 H* 04/21/23 18:30: PT 13.5, INR 1.0, APTT 27.9, Troponin I High Sens 42742 H* 04/21/23 22:41: Troponin I High Sens > 98546 H* 123 8011 2000 04/22/23 00:31: APTT 52.7 H 04/22/23 06:50: WBC 10.2, RBC 4.20 L, Hgb 13.8, Hct 41.2, MCV 98.1 H, MCH 32.9 H, MCHC 33.5, RDW Std Deviation 51.1 H, RDW Coeff of [place]ce 14.2, Plt Count 168, MPV 10.4, PT 14.7, INR 1.2, APTT 35.4, Sodium 139, Potassium 3.8, Chloride 108 H, Carbon Dioxide 26.0, Anion Gap 5, BUN 24 H, Creatinine 0.99, Estim Creat Clear Calc 73.80, Est GFR (MDRD) Af Amer 95, Est GFR (MDRD) Non-Af 79, BUN/Creatinine Ratio 24.3 H, Glucose 114 H, Calcium 8.5, Magnesium 1.5 L, Triglycerides 113, Cholesterol 132, LDL Cholesterol 48, VLDL Cholesterol 23, HDL Cholesterol 61, TSH 0.32 L 04/22/23 08:05: Activated Clotting Time 287 H 04/22/23 09:17: Activated Clotting Time 336 H Radiography Diagnostic Testing: Radiology Impression Chest X-Ray 04/21/23 16:11 IMPRESSION: No definite acute or significant abnormality seen. Electronically Signed: Dyllan Gonzalez MD at 16:48 EST , Physical Exam Narrative Seen and examined. 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 Yesterday was admitted for chest pain more like pressure waxing and waning associated with nausea. Evaluation was non-STEMI and patient was taken to cath. Patient was little short of breath after the Procedure but later on the day breathing got normal. Physical exam General: Alert, Oriented x3, Cooperative HEENT: Atraumatic, PERRLA, EOMI, Normocephalic Oral: No Gingival or Mucosal Lesions/ Ulcerations Neck: Supple, No JVD, Negative Carotid Bruits Chest wall/Lungs: Air entry diminished in bilateral lung bases. No crepitation/rhonchi Cardiovascular: Regular rate, Regular Rhythm, Normal S1, Normal S2, No M/G/R. Left subclavicular pacemaker. Abdomen: Bowel Sounds Present, Soft, Non Tender, Non-Distended : No dysuria. No renal angle tenderness. No suprapubic tenderness. Extremities: No edema, Capillary Refill Less than 3 Seconds Skin: No rashes, No breakdown Musculoskeletal: No Tenderness to Palpation of Joints or Extremities Neurological: Cranial nerves II-XII grossly intact, DTR 2+/4. No acute focal neurological deficit. Psych/Mental Status: Normal Affect, Appropriate. Assessment & Plan Assessment/Plan (1) Non-ST elevation [place] (NSTEMI): (2) Presence of cardiac pacemaker: (3) Nicotine dependence: (4) GERD (gastroesophageal reflux disease): (5) Sleep apnea: (6) Essential hypertension: PLAN: Plan 72-year-old gentleman was admitted with chest pressure/discomfort radiating to both arms intermittently started on night before admission associated with nausea. Blood pressure was very high. 1. #NSTEMI: 04/22:Patient is being admitted in PCU. Patient was started on beta-laura, IV heparin drip and nitro drip as well as aspirin and high intensity statin. Grants Administrator was consulted. Twelve-lead EKG shows atrial sensed ventricular paced rhythm. Serial troponins were very high. Patient taken to Plumber Supervisor today and found to have triple-vessel disease. Cardiac cath showed triple-vessel disease, severe disease in proximal LAD, moderately severe mid LAD and distal LAD. OM 3 and large posterolateral branches also disease. Patient is not candidate for CABG and therefore decided to go ahead for PCI LAD proximal complex lesion 99% prestenosis postdilatation 0% and NAOMI. Mid LAD 80%. Stenosis dilated and the NAOMI, postdilatation 0%. Fasting profile shows LDL 48, HDL 61, total cholesterol 132. TSH low at 0.32. Repeat free T4 ordered. Repeat echo is ordered. 2. Hypomagnesemia: Serum magnesium 1.5. Magnesium replacement ordered. #Hypertension: Blood pressure was high intermittently, one-time 181/86. On amlodipine and losartan. Patient had metoprolol IV in ED. Holding HCTZ. Low-dose Lasix 20 mg daily started by military education coordinator #Hypercalcemia -Unclear significance -Pt being hydrated -Repeat calcium 8 point 5 in the morning. -Holding hctz # History of Mobitz type II heart block with permanent pacemaker -Status post pacemaker placement #GERD -Continue famotidine #KYREE -Intermittent cpap compliance, will add cpap here #low testosterone -Uses implant q4 months #Tobacco use -Advise cessation -Nicotine replacement available if desired #DVT ppx: Heparin gtt 2D echo in September 2021 Interpretation Summary Normal LV size. Left ventricular systolic function is normal. The estimated ejection fraction is 60 %. Stage 1 diastolic dysfunction. Contrast injection was performed. Charges/Coding Addendum Addendum: Total time of the visit including total time spent in counseling or coordination of care, (more than 50% of the total time, spent in obtaining medical information from nurses and other ancillary care providers,explaining to the patient about labs, imaging, diagnosis and management of active complex medical conditions), discussion with the military education coordinator regarding Findings, clinical update given to the patient's girlfriend. Limits, review of labs and imaging is 40 minutes. Visit Charges Inpatient E&M: 12003 Subs Hosp L3
[2023-04-22] MEDS: Magnesium Sulfate 4gm/100mL 4 GM/100 ML IV.SOLN. IV (13:39)
[2023-04-22] MEDS: Furosemide 20 MG Tablet PO (13:41)
--- NOTE | 2023-04-22 15:15 | NURSING ---
This RN is taking over care at this time.
[2023-04-22] MEDS: Doxazosin 4 MG Tablet 8 MG PO (20:21)
[2023-04-22] MEDS: TICAGRELOR 90 MG TABLET PO (20:22)
[2023-04-23 02:20] VITALS: BP 127/70; PULSE 76; RESP 16; TEMP 36.4; O2SAT 95
[2023-04-23 05:23] VITALS: BMI 34.9
--- NOTE | 2023-04-23 07:14 | PN.CARD_ITS ---
Subjective Subjective Patient seen and evaluated. Had uneventful night. Doing well otherwise. Objective Data Vital Signs: Vital Signs Temp Pulse Resp BP Pulse Ox O2 Del Method O2 Flow Rate 97.6 F L 76 16 127/70 H 95 Room Air 2 04/23/23 02:20 04/23/23 02:20 04/23/23 02:20 04/23/23 02:20 04/23/23 02:20 04/23/23 02:23 04/22/23 15:09 Oxygen Flow Rate (L/min) 2 Oxygen Delivery Method Room Air Weight: 222 lb 14.197 oz Body Mass Index (BMI) 34.9 Intake & Output: Intake and Output for Last 24 Hours 04/21/23 04/22/23 04/23/23 23:59 23:59 23:59 Intake Total 381.15 / 393.15 2531.92 / 2531.92 Output Total 710 / 960 650 / 650 Balance 381.15 / 393.15 1821.92 / 1571.92 -650 / -650 Lab / Micro Data 04/22/23 06:50 04/22/23 06:50 Labs: Laboratory Results - last 24 hr 04/22/23 06:50: PT 14.7, INR 1.2, APTT 35.4, Sodium 139, Potassium 3.8, Chloride 108 H, Carbon Dioxide 26.0, Anion Gap 5, BUN 24 H, Creatinine 0.99, Estim Creat Clear Calc 73.80, Est GFR (MDRD) Af Amer 95, Est GFR (MDRD) Non-Af 79, BUN/C reatinine Ratio 24.3 H, Glucose 114 H, Calcium 8.5, Magnesium 1.5 L, Triglycerides 113, Cholesterol 132, LDL Cholesterol 48, VLDL Cholesterol 23, HDL Cholesterol 61, TSH 0.32 L 04/22/23 08:05: Activated Clotting Time 287 H 04/22/23 09:17: Activated Clotting Time 336 H Cardiology Labs/Tests 04/22/23 06:50: PT 14.7, INR 1.2, APTT 35.4, Sodium 139, Potassium 3.8, Chloride 108 H, Carbon Dioxide 26.0, Anion Gap 5, BUN 24 H, Creatinine 0.99, Est GFR (MDRD) Af Amer 95, Est GFR (MDRD) Non-Af 79, BUN/Creatinine Ratio 24.3 H, Glucose 114 H, Calcium 8.5, Magnesium 1.5 L, Triglycerides 113, Cholesterol 132, LDL Cholesterol 48, VLDL Cholesterol 23, HDL Cholesterol 61 Rhythm: EKG: ECHO: Stress Test: Cardiac Cath: PCI: CT Surgery: Holter monitor: EPS: PPM: CXR: Chest CT Scan: Radiography Diagnostic Testing: Radiology Impression Echocardiogram 04/21/23 18:38 Interpretation Summary Normal LV size. The estimated ejection fraction is 20 %. Mild concentric left ventricular hypertrophy. There are regional wall motion abnormalities as specified. ICD or pacer leads identified within the right ventricle. Contrast injection was performed. Ordering Physician: Bettie Hope Referring Physician: Cooper Cooley MD Performed By: Moraima Camara RDCS Physical Exam Const alert, oriented x3 and no apparent distress General Appearance: cooperative HEENT hearing grossly normal bilaterally Head and Scalp: atraumatic Eyes EOMs intact bilaterally Neck General: normal visual inspection Chest inspection of chest normal and palpation of chest normal Resp normal respiratory effort Auscultation: clear to auscultation bilaterally Cardio regular rate, regular rhythm, S1 normal heart sound and S2 normal heart sound Jugular Venous Distention: JVD GI normal to inspection, nondistended, normoactive bowel sounds Extremity normal capillary refill and no pedal edema Peripheral Pulses: Yes pulses 2+ throughout and femoral pulses present Skin no rashes or lesions noted Neuro oriented x3 and CN's II-XII intact bilaterally Psych Appearance: grossly normal and appropriate Assessment & Plan Assessment/Plan (1) Non-ST elevation [place] (NSTEMI): PLAN: Patient presents with a non-ST elevation myocardial infarction. Cardiac catheterization demonstrated triple-vessel disease with severe disease noted in the proximal LAD, moderately severe in the mid LAD and distal LAD. The third obtuse marginal branch also has disease as well as the large posterolateral branch. Patient did undergo PCI of the LAD to start with and then other vessels to follow-up. Patient also has evidence of left ventricular systolic dysfunction and his medication dosages will be optimized. Patient can be discharged for outpatient follow-up with cardiac rehabilitation and office follow-up. (2) Presence of cardiac pacemaker: PLAN: Patient is status post pacemaker implantation for second-degree AV block. He will continue to follow-up in the device clinic. (3) Essential hypertension: PLAN: Patient has a history of hypertension. His blood pressure does not appear to be very well-controlled. Plan will be to continue the current medical therapy. (4) Hyperlipidemia: PLAN: He will continue aggressive risk factor modification with high intensity statin. (5) Nicotine dependence: PLAN: Smoking cessation has been emphasized. (6) LV dysfunction: PLAN: He has significant left ventricular systolic dysfunction and it is unclear whether this is related to his pacemaker or due to coronary disease. Recommend empagliflozin Spironolactone Carvedilol 6.25 mg twice a day continue ARB Will reevaluate left ventricular function in approximately 3 months and depending on the findings further recommendations will be made.
[2023-04-23 07:27] VITALS: O2SAT 93
--- NOTE | 2023-04-23 07:32 | DCINST_ITS ---
Discharge Instructions Diet Discharge Diet: Low fat / Low cholesterol and 2000 mg Sodium Diet Activity Discharge Activity: Return to Normal Activity Weight Bearing Status: Weight bearing as tolerated Dressing / Incision Call your doctor if you observe: Fever of 101 or Higher, Coldness, Increased Pain, Numbness or Tingling, Change in Color, Inability to urinate, Inability to have a bowel movement, Shortness of breath, Dizziness, Fainting spells, Swelling in the ankles, Chest pain, Prolonged hiccupping, Increased palpitations (irregular heartbeat) and Calf discomfort Follow Up Care When: IN 2 WEEKS Test Results: Test results from this visit will be discussed in further detail at your follow- up appointment, if applicable. Discharge Plan Admission Admit Date/Time: 04/21/23 18:30 Primary Reason for Your Visit: Non-STEMI Attending Provider: Messi Bell Primary Care Provider: Jesus Cooley Consulting Providers: James Manuel; Bettie Hope Instructions Additional Instructions / Restrictions: Do not take sildenafil/Viagra if patient is on nitrate. Discharge Orders/Prescriptions Prescriptions: New Brilinta 90 mg Tablet 90 mg PO BID 30 Days Qty: 60 4RF sennosides-docusate sodium [Stool Softener-Stimulant Laxat] 8.6-50 mg Tablet 2 tab PO BID PRN PRN (Reason: Constipation) Qty: 0 0RF spironolactone 25 mg Tablet 12.5 mg PO DAILY 30 Days Qty: 30 2RF Rx Instructions: Hold if serum potassium is more than 5.0 Jardiance 10 mg Tablet 10 mg PO DAILY 30 Days Qty: 30 2RF carvedilol 6.25 mg Tablet 6.25 mg PO BID 30 Days Qty: 60 2RF atorvastatin 80 mg Tablet 80 mg PO DAILY 30 Days Qty: 30 3RF Continued doxazosin 4 mg tablet 4 mg PO QHS Qty: 90 3RF vitamin C13-egjxu acid 0.5-1 mg tablet 1 tab PO DAILY amlodipine 10 mg Tablet 10 mg PO DAILY hydrochlorothiazide 25 mg Tablet 25 mg PO DAILY losartan 100 mg Tablet 100 mg PO DAILY testosterone 75 mg pellet 75 mg implant .Q 4MONTHS multivitamin Tablet 1 tab PO DAILY famotidine [Pepcid AC] 20 mg Tablet 20 mg PO DAILY fluticasone propionate 50 mcg/actuation [place],Suspension 1 spray INTRANASAL DAILY PRN (Reason: ALLERGIES) Rx Instructions: administer into each nostril sildenafil [Viagra] 25 mg tablet 25 mg PO DAILY PRN (Reason: sexual activity) Rx Instructions: administer 30 minutes to 4 hours before activity aspirin [Adult Aspirin Regimen] 81 mg tablet,delayed release (DR/EC) 81 mg PO DAILY 30 Days Qty: 30 3RF Held meloxicam 15 mg tablet 15 mg PO DAILY Hold Instructions: This needs to be discontinued. Talk to PCP Discontinued atorvastatin 20 mg Tablet 20 mg PO DAILY Referrals / Follow Up: James Manuel MD [Med Staff - Active Staff] - Within 1 Month (In about 3 weeks) Jesus Cooley MD [Primary Care Provider] - Disposition Disposition (needs filled in before D/C Order can be placed): Home, Self Care
[2023-04-23 07:38] LABS: Hematocrit 43.6 % (40-54); Hemoglobin 14.5 g/dL (13.0-16.5); Mean Corp Hgb Conc 33.3 g/dL (32-36); Mean Corpuscular Hgb 32.6 pg (27.0-32.0); Mean Platelet Vol. 10.8 fl (6.2-12.0); Platelet Count 175 K/mm3 (150-450); RBC Distribution Width SD 50.3 fl (35.1-43.9); Red Blood Count 4.45 M/mm3 (4.6-6.2); White Blood Count 9.6 K/mm3 (4.4-11.0)
--- NOTE | 2023-04-23 07:40 | DS.PCM_ITS ---
Providers Date of Admission: 04/21/23 Date of Discharge: 04/23/23 Primary Care Physician: Dr. Jesus Cooley MD Consultations 04/21/23 19:58 Consult: Cardiology Routine Consulting Provider: James Manuel Reason for Consult: Chest Pain EMERGENT Consult: No MD Notified: Yes Date Notified: 04/21/23 Time Notified: 18:36 Method of Notification: ED Physician Initiated Reason For Visit: NSTEMI Diagnosis Discharge Diagnosis (1) Non-ST elevation [place] (NSTEMI): Status: Acute Code(s): I21.4 - Non-ST elevation (NSTEMI) myocardial infarction (2) Presence of cardiac pacemaker: Status: Acute Code(s): Z95.0 - Presence of cardiac pacemaker (3) Essential hypertension: Status: Chronic Code(s): I10 - Essential (primary) hypertension (4) Hyperlipidemia: Status: Chronic Code(s): E78.5 - Hyperlipidemia, unspecified (5) Nicotine dependence: Status: Chronic Code(s): F17.200 - Nicotine dependence, unspecified, uncomplicated (6) LV dysfunction: Status: Acute Code(s): I51.9 - Heart disease, unspecified Plan 72-year-old gentleman was admitted with chest pressure/discomfort radiating to both arms intermittently started on night before admission associated with nausea consistent with angina chest pain. Blood pressure was very high. 1. #NSTEMI: 04/22:Patient is being admitted in PCU. Patient was started on beta-laurie, IV heparin drip and nitro drip as well as aspirin and high intensity statin. Director Report was consulted. Twelve-lead EKG shows atrial sensed ventricular paced rhythm. Serial troponins were very high. Patient taken to [facility] today and found to have triple-vessel disease. Cardiac cath showed triple-vessel dise ase, severe disease in proximal LAD, moderately severe mid LAD and distal LAD. OM 3 and large posterolateral branches also disease. Patient is not candidate for CABG and therefore decided to go ahead for PCI LAD proximal complex lesion 99% prestenosis postdilatation 0% and NAOMI. Mid LAD 80%. Stenosis dilated and the NAOMI, postdilatation 0%. Fasting profile shows LDL 48, HDL 61, total cholesterol 132. TSH low at 0.32. Repeat free T4 ordered. 04/23: As compared to the previous echo, echo on 04/21/2023 shows severe decrease in EF 20% with regional wall motion abnormalities anterior apex akinetic. Moderate to severe global hypokinesis. RV normal. Atria normal. Free T4 normal at 0.82 but looking back, free T4 has been around 0.7-0.9 from June 2021 therefore low normal. TSH trend shows 4.29- in August 2021 to 0.32 therefore it shows consistent decrease. Overall suggestive of euthyroid sick syndrome but needs repeat thyroid function test after 3 months and follow with PCP. Prescriptions given for baby aspirin, Brilinta, carvedilol, spironolactone. Patient already on HCTZ and losartan. Therefore prescription was given for Lasix which was started here. 2. Hypomagnesemia: Serum magnesium 1.5. Magnesium replacement ordered. Repeat magnesium 2.3 normal. Serum potassium low normal at 3.7 but spironolactone added. #Hypertension: Blood pressure was high intermittently, one-time 181/86. On amlodipine and losartan. Patient had metoprolol IV in ED. Holding HCTZ. Low- dose Lasix 20 mg daily started by cake wringer 04/23: Blood pressure is better 128/65. #Hypercalcemia -Unclear significance -Pt being hydrated -Repeat calcium 8 .5 in the morning. 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 Discharge follow-up instructions completed. Discharge process discussed with the patient and all questions were answered to patient's satisfaction. Follow with PCP in 1 to 2 weeks. [facility] 3 to 4 weeks for staged PCI. Discharge process was discussed with the patient's girlfriend over the phone. Total time spent, exact 35 minutes on discharge meds reconciliation, ex amination, coordination of care with nurses and ancillary staff, review of imaging and blood test and discussion with the patient on follow-up instructions. 2D echo in September 2021 Interpretation Summary Normal LV size. Left ventricular systolic function is normal. The estimated ejection fraction is 60 %. Stage 1 diastolic dysfunction. Contrast injection was performed. 2D echo 04/21/2023 Interpretation Summary Normal LV size. The estimated ejection fraction is 20 %. Mild concentric left ventricular hypertrophy. There are regional wall motion abnormalities as specified. ICD or pacer leads identified within the right ventricle. Contrast injection was performed. Medications at Discharge Home Medications amlodipine 10 mg tablet 10 mg PO DAILY blood pressure 08/17/21 hydrochlorothiazide 25 mg tablet 25 mg PO DAILY diuretic 08/17/21 losartan 100 mg tablet 100 mg PO DAILY blood pressure 08/17/21 meloxicam 15 mg tablet 15 mg PO DAILY bone health 10/03/21 testosterone 75 mg implant pellet 75 mg implant .Q 4MONTHS hormone 10/03/21 famotidine 20 mg tablet (Pepcid AC) 20 mg PO DAILY reflux 03/18/22 fluticasone propionate 50 mcg/actuation nasal spray,suspension 1 spray intranasal DAILY PRN ALLERGIES 03/18/22 multivitamin 1 tab PO DAILY vitamin 03/18/22 doxazosin 4 mg tablet 4 mg PO QHS prostate #90 tabs 08/06/22 vitamin B12 0.5 mg-folic acid 1 mg tablet 1 tab PO DAILY vitamin 11/21/22 sildenafil 25 mg tablet (Viagra) 25 mg PO DAILY PRN sexual activity 04/21/23 aspirin 81 mg tablet,delayed release (Adult Aspirin Regimen) 81 mg PO DAILY heart health 30 days #30 tabs 04/23/23 atorvastatin 80 mg tablet 80 mg PO DAILY 30 days #30 tabs 04/23/23 carvedilol 6.25 mg tablet 6.25 mg PO BID 30 days #60 tabs 04/23/23 empagliflozin 10 mg tablet (Jardiance) 10 mg PO DAILY 30 days #30 tabs 04/23/23 sennosides 8.6 mg-docusate sodium 50 mg tablet (Stool Softener-Stimulant Laxative) 2 tab PO BID PRN PRN Constipation #0 tabs 04/23/23 spironolactone 25 mg tablet 12.5 mg (1/2 x 25 mg) PO DAILY 30 days #30 tabs 04/23/23 ticagrelor 90 mg tablet (Brilinta) 90 mg PO BID 1 month #60 tabs 04/23/23 Weight / BMI Weight Weight: 222 lb 14.197 oz Body Mass Index (BMI) 34.9 ABG / Lab / Microbiology Data 04/23/23 07:15 04/23/23 07:15 Laboratory: Laboratory Results - last 24 hr 04/22/23 06:50: Sodium 139, Potassium 3.8, Chloride 108 H, Carbon Dioxide 26.0, Anion Gap 5, BUN 24 H, Creatinine 0.99, Estim Creat Clear Calc 73.80, Est GFR (MDRD) Af Amer 95, Est GFR (MDRD) Non-Af 79, BUN/Creatinine Ratio 24.3 H, Glucose 114 H, Calcium 8.5, Magnesium 1.5 L, Triglycerides 113, Cholesterol 132, LDL Cholesterol 48, VLDL Cholesterol 23, HDL Cholesterol 61, TSH 0.32 L 04/22/23 08:05: Activated Clotting Time 287 H 04/22/23 09:17: Activated Clotting Time 336 H 04/23/23 07:15: WBC 9.6, RBC 4.45 L, Hgb 14.5, Hct 43.6, MCV 98.0 H, MCH 32.6 H, MCHC 33.3, RDW Std Deviation 50.3 H, RDW Coeff of [place] 14.0, Plt Count 175, MPV 10.8 Radiography Diagnostic Testing: Radiology Impression Echocardiogram 04/21/23 18:38 Interpretation Summary Normal LV size. The estimated ejection fraction is 20 %. Mild concentric left ventricular hypertrophy. There are regional wall motion abnormalities as specified. ICD or pacer leads identified within the right ventricle. Contrast injection was performed. Ordering Physician: Bettie Hope Referring Physician: Cooper Cooley MD Performed By: Moraima Camara RDCS D/C Instructions Discharge Diet: Low fat / Low cholesterol and 2000 mg Sodium Diet Weight Bearing Status: Weight bearing as tolerated Call your doctor if you observe: Fever of 101 or Higher, Coldness, Increased Pain, Numbness or Tingling, Change in Color, Inability to urinate, Inability to have a bowel movement, Shortness of breath, Dizziness, Fainting spells, Swelling in the ankles, Chest pain, Prolonged hiccupping, Increased palpitations (irregular heartbeat) and Calf discomfort When: IN 2 WEEKS Meaningful Use Info Meaningful Use Diagnoses (Choose all that apply): AMI and CHF AMI/Post PCI/Angioplasty Aspirin given w/in 24hrs of arrival?: Yes ASA at discharge?: Yes Statins at discharge?: Yes Fareed/ARB at discharge?: Yes Beta Laurie at discharge?: Yes Done w/ Acute ND measure.: Yes CHF FAREED/ARB ordered at discharge?: Yes Documented LVEF (%): 20 Discharge Plan Admission Admit Date/Time: 04/21/23 18:30 Primary Reason for Your Visit: Non-STEMI Attending Provider: Messi Bell Primary Care Provider: Jesus Cooley Consulting Providers: James Manuel; Bettie Hope Instructions Additional Instructions / Restrictions: Do not take sildenafil/Viagra if patient is on nitrate. Discharge Orders/Prescriptions Prescriptions: New Brilinta 90 mg Tablet 90 mg PO BID 30 Days Qty: 60 4RF sennosides-docusate sodium [Stool Softener-Stimulant Laxat] 8.6-50 mg Tablet 2 tab PO BID PRN PRN (Reason: Constipation) Qty: 0 0RF spironolactone 25 mg Tablet 12.5 mg PO DAILY 30 Days Qty: 30 2RF Rx Instructions: Hold if serum potassium is more than 5.0 Jardiance 10 mg Tablet 10 mg PO DAILY 30 Days Qty: 30 2RF carvedilol 6.25 mg Tablet 6.25 mg PO BID 30 Days Qty: 60 2RF atorvastatin 80 mg Tablet 80 mg PO DAILY 30 Days Qty: 30 3RF Continued doxazosin 4 mg tablet 4 mg PO QHS Qty: 90 3RF vitamin L80-hlzde acid 0.5-1 mg tablet 1 tab PO DAILY amlodipine 10 mg Tablet 10 mg PO DAILY hydrochlorothiazide 25 mg Tablet 25 mg PO DAILY losartan 100 mg Tablet 100 mg PO DAILY testosterone 75 mg pellet 75 mg implant .Q 4MONTHS multivitamin Tablet 1 tab PO DAILY famotidine [Pepcid AC] 20 mg Tablet 20 mg PO DAILY fluticasone propionate 50 mcg/actuation [place],Suspension 1 spray INTRANASAL DAILY PRN (Reason: ALLERGIES) Rx Instructions: administer into each nostril sildenafil [Viagra] 25 mg tablet 25 mg PO DAILY PRN (Reason: sexual activity) Rx Instructions: administer 30 minutes to 4 hours before activity aspirin [Adult Aspirin Regimen] 81 mg tablet,delayed release (DR/EC) 81 mg PO DAILY 30 Days Qty: 30 3RF Held meloxicam 15 mg tablet 15 mg PO DAILY Hold Instructions: This needs to be discontinued. Talk to PCP Discontinued atorvastatin 20 mg Tablet 20 mg PO DAILY Referrals / Follow Up: James Manuel MD [Med Staff - Active Staff] - Within 1 Month (In about 3 weeks) Jesus Cooley MD [Primary Care Provider] - Disposition Disposition (needs filled in before D/C Order can be placed): Home, Self Care Charges/Coding Visit Charges Inpatient E&M: 96895 Disch Hosp >30min
[2023-04-23 08:08] LABS: AST(SGOT) 93 U/L (15-37); Alanine Aminotransfer ALT/SGPT 33 U/L (16-61); Alkaline Phosphatase 62 U/L (45-117); Anion Gap 4 (5-15); BUN 25 mg/dL (7-18); Calcium,Total 8.5 mg/dL (8.5-10.1); Chloride 109 mmol/L (98-107); EST Glomerular Filtration Rate 78 mL/min (>60); Est Glom Filt Rate - Afr Amer 94 mL/min (>60); Estimated Creatinine Clearance 73.43 ml/min; Globulin 3.1 g/dL (2.2-4.2); Glucose 87 mg/dL (74-106); Potassium 3.7 mmol/L (3.5-5.1); Protein, Total 6.1 g/dL (6.4-8.2); Sodium Level 138 mmol/L (136-145); T4 Free Direct 0.82 ng/dL (0.76-1.46)
[2023-04-23 08:15] VITALS: BP 128/65; PULSE 84; RESP 18; TEMP 36.6; O2SAT 93
[2023-04-23 08:32] LABS: Magnesium 2.3 mg/dL (1.6-2.6)
--- NOTE | 2023-04-23 09:30 | EKG12_ITS ---
Test Reason : AM EKG Blood Pressure : / mmHG Vent. Rate : 075 BPM Atrial Rate : 075 BPM P-R Int : 194 ms QRS Dur : 150 ms QT Int : 422 ms P-R-T Axes : 050 -73 090 degrees QTc Int : 471 ms Atrial-sensed ventricular-paced rhythm Abnormal ECG When compared with ECG of 22-APR-2023 09:43, MANUAL COMPARISON REQUIRED, DATA IS UNCONFIRMED Confirmed by CIARAN MARCANO, TRAMAINE ([id number]), avid editor FESTUS BERG ([id number]) on 04/24/2023 6:44:25 AM Referred By: ERNESTO Confirmed By:TRAMAINE WAGONER MD
--- NOTE | 2023-04-23 09:31 | CASEMGMT ---
Patient has order for discharge. Patient is discharging on Brilinta and Jardiance. [facility]. Brilinta is $25 and Jardiance $135. ADRIÁN BARRY in to update patient regarding copays and savings cards provided. Patient denied further needs or help at discharge. Patient had no further questions or concerns.
[2023-04-23] MEDS: Famotidine 20 MG Tablet PO (09:56)
[2023-04-23] MEDS: Empagliflozin 10 MG Tablet PO (09:56)
[2023-04-23] MEDS: Losartan Potassium 100 MG Tablet PO (09:56)
[2023-04-23] MEDS: Furosemide 20 MG Tablet PO (09:56)
[2023-04-23] MEDS: Aspirin E.C. 81 MG Tablet PO (09:56)
[2023-04-23] MEDS: amLODIPine 5 MG Tablet PO (09:56)
[2023-04-23] MEDS: Carvedilol 6.25 MG Tablet PO (09:57)
[2023-04-23] MEDS: Spironolactone 25 MG Tablet 12.5 MG PO (09:57)
[2023-04-23] MEDS: TICAGRELOR 90 MG TABLET PO (09:57)
[2023-04-23] MEDS: Atorvastatin Calcium 80 MG Tablet PO (09:58)
[2023-04-23 10:04] VITALS: BP 128/65; PULSE 84; RESP 18; TEMP 36.6; O2SAT 93
--- NOTE | 2023-04-23 10:43 | PHA.DC_ITS ---
Pharmacy [facility] Pharmacy Service has performed discharge medication reconciliation and counseling for this patient. The patient's discharge medication list was reviewed for discrepancies and discrepancies were resolved. The patient was counseled on the following discharge medications and changes in medications for homegoing were reviewed. 1. LIPITOR --> DOSE INCREASED FROM 10MG TO 80MG 2. BRILINTA 3. JARDIANCE 4. COREG 5. ALDACTONE 6. MOBIC --> HOLD UNTIL SEEN BY PCP The Reason for Use, instructions for use, and potential side effects were reviewed for all new medications. The patient's questions regarding all of their medications were answered. The patient was able to verbally demonstrate an understanding of their discharge medications. The patient was counselled by Segundo Gross PharmD Candidate
== END 2023-04-23 11:54 | disposition home or self-care (01) | DRG 322 ==
LOC: ED 17:48 → PCU 19:04
PROVIDERS: Internal Medicine Cardiovascular Disease; Admitting Provider Internal Medicine; Emergency Provider Emergency Medicine; PCP Family Medicine; Visit Provider Internal Medicine
DX: I21.4 Non-ST elevation (NSTEMI) myocardial infarction (principal); I44.1 Atrioventricular block, second degree; I10 Essential (primary) hypertension; E78.5 Hyperlipidemia, unspecified; K21.9 Gastro-esophageal reflux disease without esophagitis; E83.52 Hypercalcemia; G47.33 Obstructive sleep apnea (adult) (pediatric); F17.200 Nicotine dependence, unspecified, uncomplicated; E83.42 Hypomagnesemia; Z79.82 Long term (current) use of aspirin; Z95.0 Presence of cardiac pacemaker
CPT/HCPCS: 36415; 71045; 80048; 80053; 80061; 83735; 84439; 84443; 84484; 85025; 85027; 85347; 85610; 85730; 92928; 93005; 93306; 93458; 94762; 99152; 99153; 99285; 99406; J7030; Q9957; Q9967; A4216; C1725; C1769; C1874; C1887; C1894; C8929; C9600; J1327

== ENCOUNTER → 2023-05-20 | Outpatient (CLI) | payer OTHER, SELFPAY ==
[2023-05-20 10:20] LABS: Absolute Lymphocyte Count 0.99 X10^3/uL (0.83-4.51); Absolute Neutrophil Count 5.7 X10^3/uL (2.0-7.7); Basophil# 0.06 X10^3/uL; Basophil% 0.8 % (0-1); Eosinophil# 0.37 X10^3/uL; Eosinophils% 4.6 % (0-5); Hematocrit 48.4 % (40-54); Hemoglobin 16.2 g/dL (13.0-16.5); Lymphocyte # 0.99 X10^3/ul (0.83-4.51); Lymphocyte % 12.4 % (19-41); Mean Corp Hgb Conc 33.5 g/dL (32-36); Mean Corpuscular Hgb 32.1 pg (27.0-32.0); Mean Corpuscular Volume 95.8 fL (80-94); Mean Platelet Vol. 10.8 fl (6.2-12.0); Monocyte# 0.83 X10^3/uL; Monocyte% 10.4 % (0-10); NRBC Flagged by Analyzer 0 % (0-5); Neutrophil # 5.71 X10^3/uL (2.7-7.7); Neutrophil % 71.4 % (47-70); Platelet Count 204 K/mm3 (150-450); RBC Distribution Width CV 13.9 % (11.6-14.6); RBC Distribution Width SD 48.6 fl (35.1-43.9); Red Blood Count 5.05 M/mm3 (4.6-6.2)
[2023-05-20 10:37] LABS: ALB/GLOB Ratio 1.1 RATIO (0.9-2.4); AST(SGOT) 17 U/L (15-37); Alanine Aminotransfer ALT/SGPT 22 U/L (16-61); Albumin, Serum 3.7 g/dL (3.2-5.0); Alkaline Phosphatase 66 U/L (45-117); Anion Gap 7 (5-15); BUN 20 mg/dL (7-18); BUN/Creat Ratio 19.4 RATIO (10-20); Calcium,Total 8.8 mg/dL (8.5-10.1); Chloride 107 mmol/L (98-107); Creatinine, Serum 1.03 mg/dL (0.70-1.30); EST Glomerular Filtration Rate 75 mL/min (>60); Est Glom Filt Rate - Afr Amer 91 mL/min (>60); Globulin 3.3 g/dL (2.2-4.2); Glucose 95 mg/dL (74-106); Potassium 3.9 mmol/L (3.5-5.1); Sodium Level 137 mmol/L (136-145)
[2023-05-20 10:39] LABS: Prothrombin Time (Protime)PT. 13.3 SECONDS (11.7-14.9)
[2023-05-20 10:40] LABS: Partial Thromboplast Time 28.7 Seconds (24.1-36.2)
[2023-05-20 10:44] LABS: Vitamin B12 1009 pg/mL (211-911); Vitamin D,25 Hydroxy 51.9 ng/mL
[2023-05-20 11:30] LABS: AST(SGOT) 16 U/L (15-37); Alanine Aminotransfer ALT/SGPT 24 U/L (16-61); Albumin, Serum 3.6 g/dL (3.2-5.0); Alkaline Phosphatase 64 U/L (45-117); Bilirubin, Direct 0.26 mg/dL (0.00-0.30); Free T3 2.3 pg/mL (2.18-3.98); Globulin 3.2 g/dL (2.2-4.2); PSA,Total- Diagnostic 1.92 ng/mL (0.0-4.0); Protein, Total 6.8 g/dL (6.4-8.2); T4 Free Direct 0.94 ng/dL (0.76-1.46)
[2023-05-26 14:10] LABS: Testosterone, % Free 3.55 % (1.50-4.20); Testosterone, Free 31.77 ng/dL (5.00-21.00); Testosterone, Total 895 ng/dL (264-916); Thyroid Peroxidase AB < 9 IU/mL (0-34)
== END | disposition home or self-care (01) ==
PROVIDERS: Physician Assistant Medical; PCP Family Medicine
DX: R68.82 Decreased libido (principal); I21.4 Non-ST elevation (NSTEMI) myocardial infarction; E07.9 Disorder of thyroid, unspecified; R53.83 Other fatigue; E55.9 Vitamin D deficiency, unspecified; I25.5 Ischemic cardiomyopathy; I51.9 Heart disease, unspecified; I25.10 Atherosclerotic heart disease of native coronary artery without angina pectoris; E53.8 Deficiency of other specified B group vitamins; R79.89 Other specified abnormal findings of blood chemistry; B35.1 Tinea unguium
CPT/HCPCS: 36415; 80053; 80076; 82306; 82607; 84153; 84402; 84403; 84439; 84443; 84481; 85025; 85610; 85730; 86376

== ENCOUNTER 2023-06-02 10:47 | Observation (INO) | payer OTHER, SELFPAY ==
[2023-06-01 10:13] VITALS: BMI 33.6
[2023-06-02] VITALS (10 sets, daily range): BP systolic 108–144; BP diastolic 46–72; PULSE 61–69; RESP 11–20; TEMP 35.9–36.9; O2SAT 16–99; BMI 34.7
--- NOTE | 2023-06-02 10:42 | CL.I_ITS ---
Patient Name: CLIFTON DAVIS Study Date: 06/02/2023 Performing: Chrissie Manzo MD Ht: 67 inches 170.18 cm : 1950 Wt: 214.99 lbs 97.52 kg Age: 72 Gender: male BSA: 2.09 PROCEDURE(S) PERFORMED IC12-(81738/[id number])NAOMI W/WO PTCA, SINGLE CORONARY ARTERY IC12-([id number])NAOMI W/WO PTCA, SINGLE CORONARY ARTERY CLINICAL PROFILE AND CO-MORBIDITIES Indications: Stable Known CAD Heart Failure: None CONCLUSIONS Successful NAOMI Mid OM2 using [place] 2.25x12 mm, post-dilated using 2.5 mm balloon Successful NAOMI distal LAD using Mena [place] 2.0x8 mm RECOMMENDATIONS ASA Indefinitley Brilinta for at least 12 months DESCRIPTION OF PROCEDURE The patient arrived to the procedure lab. The risks and benefits of the procedure as well as a full description of our services here and current unavailability of surgical backup were fully explained to the patient and/or their significant other prior to the catheterization. The Timeout was completed, verifying the correct patient and procedure. The patient's procedural site was prepped and draped in the usual fashion. Local anesthetic was given subcutaneously to right radial region with Lidocaine 2%. Using a modified Seldinger technique, arterial access was obtained via the right radial artery, a 6Fr sheath was inserted.. XB 3.0 Guide catheter was inserted and engaged into the LCA. Runthrough Guide wire was advanced to the Circumflex. [place] 2.25x12 Drug Eluting stent was inserted. Angiogram performed post stent deployment. NC Euphora 2.5x8 Balloon catheter was inserted. Angiogram performed post balloon dilatation. Guide wire was repositioned to the LAD Mena [place] 2.0x 12 Drug Eluting stent was inserted. Drug Eluting stent was removed intact, failed to cross lesion [place] Mnea 2.0x8 Drug Eluting stent was inserted. Drug Eluting stent was removed intact, failed to cross lesion Choice extra support Guide wire was inserted as a freida wire [place] Dixon 2.0x8 Drug Eluting stent was inserted. Drug Eluting stent was removed intact, failed to cross lesion [place] Mena 2.0x8 Drug Eluting stent was inserted. Angiogram performed post stent deployment. NC Emerge 2.00x8 Balloon catheter was inserted. Angiogram performed post balloon dilatation. The arterial sheath was pulled and a TR Band was applied for hemostasis w/ 8ml air INTERVENTION INFORMATION LESION SITE: 2nd OM (Mid) Lesion Complexity: Non-High/Non-C, lesion length: 10 mm Pre Stenosis: 80 % Pre intervention JIMMY flow: 3 PROCEDURE: Drug Eluting Stent with post dilatation Post Stenosis: 0 % Post intervention JIMMY flow: 3 Lesion Devices: Terumo .014 180cm Runthrough Extra Floppy straight Cordis 6 Fr XB3.0 100cm Guide Catheter Medtronic 2.25 x 12 MENA FRONTIER NAOMI Medtronic NC EUPHORA RX 2.5x08 BALLOON LESION SITE: LAD (Distal) Lesion Complexity: Non-High/Non-C, lesion length: 6 mm Pre Stenosis: 90 % Pre intervention JIMMY flow: 3 PROCEDURE: Drug Eluting Stent with post dilatation Post Stenosis: 0 % Post intervention JIMMY flow: 3 Lesion Devices: Terumo .014 180cm Runthrough Extra Floppy straight Cordis 6 Fr XB3.0 100cm Guide Catheter Medtronic 2.00 x 08 MENA FRONTIER NAOMI Melvin Sci NC EMERGE MR 2.00x08 BALLOON Melvin Sci .014 182cm Choice Xtra Support wire COMPLICATIONS No Complications PROCEDURE MEDICATIONS Versed 1 mg IV Fentanyl 50 mcg IV Oxygen: 2 L/min via nasal cannula Heparin given IA 06/02/2023 09:43:17 Heparin 5000 unit(s) IV 06/02/2023 09:44:46 Heparin 2000 unit(s) IV 06/02/2023 10:09:02 Nitro 200 mcg IC 06/02/2023 09:52:22 Nitro 200 mcg IC 06/02/2023 09:52:22 Nitro 200 mcg IC 06/02/2023 09:57:45 Verapamil 2.5mg, Ntg 200mcgs, 2000 units of Heparin given IA 06/02/2023 09:43:17 SUMMARY OF HEMODYNAMIC DATA Time AIR REST AO 113/63 (83) SA 09:44:56 ECG 10:37:43 10:37:49 Signed By Chrissie Manzo MD On 06/02/2023 10:42:40 Chrissie Manzo MD
--- NOTE | 2023-06-02 10:45 | EKG12_ITS ---
Test Reason : PCI Blood Pressure : / mmHG Vent. Rate : 063 BPM Atrial Rate : 063 BPM P-R Int : 194 ms QRS Dur : 188 ms QT Int : 456 ms P-R-T Axes : 036 -77 078 degrees QTc Int : 466 ms Atrial-sensed ventricular-paced rhythm Abnormal ECG When compared with ECG of 23-APR-2023 05:20, Vent. rate has decreased BY 12 BPM Confirmed by Sylvester Calix ([id number]), slot editor CORIE VALERA ([id number]) on 06/03/2023 6:57:44 AM Referred By: Chrissie Manzo Confirmed By:Sylvester Calix
--- NOTE | 2023-06-02 10:48 | DCINST_ITS ---
Discharge Instructions Diet Discharge Diet: Low fat / Low cholesterol Activity Discharge Activity: Return to Normal Activity Dressing / Incision Call your doctor if your incision/area has: Continuous Slow Oozing, Sudden Increased Bleeding, Increased Pain/ Swelling, Increased Redness, Foul Smelling Discharge and Swelling at the incision site Follow Up Care Please Follow Up With: James Manuel MD When: 2 weeks Test Results: Test results from this visit will be discussed in further detail at your follow- up appointment, if applicable. Discharge Plan Admission Attending Provider: Chrissie Manzo Primary Care Provider: Jesus Cooley Discharge Orders/Prescriptions Prescriptions: Continued doxazosin 4 mg tablet 4 mg PO QHS Qty: 90 3RF terbinafine HCl 250 mg tablet 250 mg PO DAILY mecobalamin (vitamin B12) 1,000 mcg tablet,chewable 1,000 mcg PO DAILY carvedilol 12.5 mg tablet 12.5 mg PO BID Qty: 180 3RF spironolactone 25 mg tablet 25 mg PO DAILY Qty: 90 3RF Jardiance 10 mg tablet 10 mg PO DAILY Qty: 90 3RF sildenafil [Viagra] 100 mg tablet 100 mg PO DAILY PRN (Reason: sexual activity) Qty: 10 0RF Rx Instructions: administer one half tablet 30 minutes to 4 hours before activity nitroglycerin [Nitrostat] 0.4 mg tablet, sublingual 0.4 mg sublingual Q5-15M PRN (Reason: chest pain) Qty: 25 3RF Rx Instructions: do not exceed 3 doses per episode amlodipine 10 mg Tablet 10 mg PO DAILY losartan 100 mg Tablet 100 mg PO DAILY testosterone 75 mg pellet 75 mg implant .Q 4MONTHS multivitamin Tablet 1 tab PO DAILY famotidine [Pepcid AC] 20 mg Tablet 20 mg PO DAILY fluticasone propionate 50 mcg/actuation [place],Suspension 1 spray INTRANASAL DAILY PRN (Reason: ALLERGIES) Rx Instructions: administer into each nostril Brilinta 90 mg Tablet 90 mg PO BID 30 Days Qty: 60 4RF atorvastatin 80 mg Tablet 80 mg PO DAILY 30 Days Qty: 30 3RF aspirin [Adult Aspirin Regimen] 81 mg tablet,delayed release (DR/EC) 81 mg PO DAILY 30 Days Qty: 30 3RF Referrals / Follow Up: Jesus Cooley MD [Primary Care Provider] - Disposition Disposition (needs filled in before D/C Order can be placed): Home, Self Care
[2023-06-02] MEDS: 0.9% Normal Saline (1000mL) 1,000 ML 75 ML IV (14:04)
[2023-06-02 15:33] LABS: ACT Activated Clotting Time 266 sec (74-137)
[2023-06-02] MEDS: Carvedilol 12.5 MG Tablet PO (16:11)
[2023-06-02] MEDS: TICAGRELOR 90 MG TABLET PO (23:09)
[2023-06-02] MEDS: Doxazosin 4 MG Tablet PO (23:09)
[2023-06-03 05:01] VITALS: BMI 34.7
[2023-06-03 06:51] VITALS: BP 147/70; PULSE 62; RESP 15; TEMP 36.6; O2SAT 97
[2023-06-03 06:59] LABS: Hematocrit 45.9 % (40-54); Hemoglobin 15.4 g/dL (13.0-16.5); Mean Corp Hgb Conc 33.6 g/dL (32-36); Mean Corpuscular Hgb 32.5 pg (27.0-32.0); Mean Corpuscular Volume 96.8 fL (80-94); Mean Platelet Vol. 10.5 fl (6.2-12.0); Platelet Count 201 K/mm3 (150-450); RBC Distribution Width CV 14.5 % (11.6-14.6); RBC Distribution Width SD 51.8 fl (35.1-43.9); Red Blood Count 4.74 M/mm3 (4.6-6.2); White Blood Count 8.4 K/mm3 (4.4-11.0)
[2023-06-03 07:46] LABS: ALB/GLOB Ratio 1.1 RATIO (0.9-2.4); AST(SGOT) 25 U/L (15-37); Alanine Aminotransfer ALT/SGPT 21 U/L (16-61); Albumin, Serum 3.3 g/dL (3.2-5.0); Alkaline Phosphatase 63 U/L (45-117); Anion Gap 6 (5-15); BUN 19 mg/dL (7-18); BUN/Creat Ratio 22.6 RATIO (10-20); Calcium,Total 8.3 mg/dL (8.5-10.1); Chloride 109 mmol/L (98-107); Creatinine, Serum 0.84 mg/dL (0.70-1.30); EST Glomerular Filtration Rate 95 mL/min (>60); Est Glom Filt Rate - Afr Amer 115 mL/min (>60); Estimated Creatinine Clearance 87.19 ml/min; Glucose 78 mg/dL (74-106); Potassium 3.8 mmol/L (3.5-5.1); Protein, Total 6.3 g/dL (6.4-8.2); Sodium Level 137 mmol/L (136-145)
[2023-06-03 08:22] VITALS: BP 140/72; PULSE 65; RESP 16; TEMP 36.7; O2SAT 94
[2023-06-03] MEDS: Multivitamins,Therapeutic Tablet 1 TABLET PO (08:26)
[2023-06-03] MEDS: Empagliflozin 10 MG Tablet PO (08:26)
[2023-06-03] MEDS: Losartan Potassium 100 MG Tablet PO (08:26)
[2023-06-03] MEDS: TICAGRELOR 90 MG TABLET PO (08:26)
[2023-06-03] MEDS: Carvedilol 12.5 MG Tablet PO (08:26)
[2023-06-03] MEDS: Aspirin E.C. 81 MG Tablet PO (08:26)
[2023-06-03] MEDS: Spironolactone 25 MG Tablet PO (08:27)
[2023-06-03] MEDS: Atorvastatin Calcium 80 MG Tablet PO (08:29)
[2023-06-03] MEDS: amLODIPine 10 MG Tablet PO (08:30)
[2023-06-03] MEDS: Famotidine 20 MG Tablet PO (08:30)
--- NOTE | 2023-06-03 09:26 | PHA.DC.MR.R ---
Pharmacy [place] Med Reconciliation Pharmacy Service has performed discharge medication reconciliation for this patient. The patient's discharge medication list was reviewed for discrepancies and discrepancies were resolved. Medications at Discharge Home Medications amlodipine 10 mg tablet 10 mg PO DAILY blood pressure 08/17/21 losartan 100 mg tablet 100 mg PO DAILY blood pressure 08/17/21 testosterone 75 mg implant pellet 75 mg implant .Q 4MONTHS hormone 10/03/21 famotidine 20 mg tablet (Pepcid AC) 20 mg PO DAILY reflux 03/18/22 fluticasone propionate 50 mcg/actuation nasal spray,suspension 1 spray intranasal DAILY PRN ALLERGIES 03/18/22 multivitamin 1 tab PO DAILY vitamin 03/18/22 doxazosin 4 mg tablet 4 mg PO QHS prostate #90 tabs 08/06/22 aspirin 81 mg tablet,delayed release (Adult Aspirin Regimen) 81 mg PO DAILY heart health 30 days #30 tabs 04/23/23 atorvastatin 80 mg tablet 80 mg PO DAILY 30 days #30 tabs 04/23/23 ticagrelor 90 mg tablet (Brilinta) 90 mg PO BID 1 month #60 tabs 04/23/23 carvedilol 12.5 mg tablet 12.5 mg PO BID #180 tabs 05/04/23 empagliflozin 10 mg tablet (Jardiance) 10 mg PO DAILY #90 tabs 05/04/23 mecobalamin (vitamin B12) 1,000 mcg chewable tablet 1,000 mcg PO DAILY 05/04/23 nitroglycerin 0.4 mg sublingual tablet (Nitrostat) 0.4 mg sublingual Q5-15M PRN chest pain #25 tabs 05/04/23 sildenafil 100 mg tablet (Viagra) 100 mg PO DAILY PRN sexual activity #10 tabs 05/04/23 spironolactone 25 mg tablet 25 mg PO DAILY #90 tabs 05/04/23 terbinafine HCl 250 mg tablet 250 mg PO DAILY 05/04/23
--- NOTE | 2023-06-03 10:12 | CASEMGMT ---
Patient has order for discharge. RN CM in to discuss needs at discharge. Patient denies needs or help at discharge. Patient had no further questions or concerns.
[2023-06-03 13:02] VITALS: BP 132/68; PULSE 67; RESP 17; TEMP 36.6; O2SAT 97
--- NOTE | 2023-06-03 15:03 | CRPHASE1 ---
Patient Communication Patient Information Former Patient:: Phase I PHII Cardiac Rehab Discussed with Patient:: Yes Guide to Cardiac Rehab Given to Patient:: Yes Cardiac Rehab Facility Choice List Given to Patient:: Yes Communication to Cardiac Rehab Choice Program [facility] CR PHII:: Communication Given to CR and Refer to [facility] Choice Program Other:: Communication Given to CR Culture Room Worker:: Chrissie Manzo Phase II Cardiac Rehab:: Yes Post Discharge Choice Letter Given to Patient:: Yes Phase I Charge:: Level I - Education Medical/Surgical History Medical History NM:: Yes Angina:: Yes CAD:: Yes Congestive Heart Failure: Cardiomyopathy:: Yes [place]REE:: Yes Hypertension:: Yes Dyslipidemia:: Yes Arrhythmias:: Yes CVA/TIA: GERD:: Yes Surgical History CABG: No PTCA:: Yes Pacemaker:: Yes Ambulation Ambulation Notes:: walks independently Cardiac Rehabilitation Info Program Information Cardiac Rehabilitation Program Information: Cardiac Rehab The cardiac rehab team at [facility] consists of highly skilled exercise physiologists, nurses, respiratory therapists and physicians working together with you. Our purpose is to help you have a full recovery and achieve the goals you set for yourself. Over the years many of our patients have returned to activities they assumed they would never do again! We can help restore your confidence and motivation to make lifestyle changes that can have a significant impact on your health and quality of life! We can help answer questions and concerns you may have about exercise, lifestyle, medications, diet, stress and anxiety which are common following a hospitalization. WE monitor ECG and vital signs during exercise and discuss your progress with you and report to your physician(s). Cardiac Rehab is proven to help reduce readmissions, improve functional capacity and lower recurrence of problems with your heart. Our Cardiac Rehab program is Certified by the [place] [employer] (AACVPR) and Accredited by the [employer] through our [facility]. You can contact us at . We invite you to call us with your questions or to get started in our program. If you have other questions or concerns be sure to ask your physician/provider during your follow-up visit. WE look forward to seeing you!
--- NOTE | 2023-06-03 15:05 | CRPH1.INSTRU ---
General Education Discussed with Patient CAD and cardiac anatomy and function:: Patient communicates acknowledgment and Family communicates acknowledgment Explanation of diagnoses and procedures:: Patient communicates acknowledgment and Family communicates acknowledgment Sign/Symptoms of OR:: Patient communicates acknowledgment and Family communicates acknowledgment Antiplatelet therapy: Patient communicates acknowledgment and Family communicates acknowledgment Proper use of NTG-SL: Patient communicates acknowledgment and Family communicates acknowledgment Emergency procedures and activation of EMS: Patient communicates acknowledgment and Family communicates acknowledgment Compliance of all prescribed medications: Patient communicates acknowledgment and Family communicates acknowledgment Smoking Risk Factors Patient Nicotine/Smoking Risk Factors Are:: Smokeless tobacco Recommendations Recommendations Include:: Second-hand smoke recommendation, Participation in a smoking cessation program and Previous smoker; encourage continued cessation Response Code Nicotine/Smoking Response Code:: Patient communicates acknowledgment and Family communicates acknowledgment Dyslipidemia Risk Factors Patient Dyslipidemia Risk Factors Are:: Total Cholesterol, Triglycerides, HDL and LDL Recommendations Recommendations Include:: Therapeutic Lifestyle Change dietary guidelines Response Code Dyslipidemia Response Code:: Patient communicates acknowledgment and Family communicates acknowledgment Overweight/Obesity Risk Factors Patient Overweight/Obesity Risk Factors Are:: Overweight = 26-29 Recommendations Recommendations Include:: Weight loss of 5-10% and Reduced calorie diet Response Code Overweight/Obesity:: Patient communicates acknowledgment and Family communicates acknowledgment Hypertension Recommendations Recommendations Include:: Maintain BP <130/85 and BP <130/80 if diabetic Response Code Hypertension:: Patient communicates acknowledgment and Family communicates acknowledgment Heart Disease Risk Factors Patient Heart Disease Risk Factors Are:: Family history of heart disease < 65 years old and Previous cardiac event Recommendations Recommendations Include:: Educated family members of their risk and Educated family members of importance of prevention of heart disease Response Code Heart Disease Response Code:: Patient communicates acknowledgment and Family communicates acknowledgment Diabetes Risk Factors Patient Diabetes Risk Factors Are:: No documented hx of diabetes Metabolic Syndrome Risk Factors Patient Metabolic Syndrome Risk Factors Are [3 of 5]:: Fasting blood sugar > 100 mg/dL and Waist circumference > 35 [female] or 40 [male] Recommendations Recommendations Include:: Does not meet criteria and Reinforce compliance to risk factor modifications Response Code Metabolic Syndrome Response Code:: Patient communicates acknowledgment and Family communicates acknowledgment Sedentary Risk Factors Patient Sedentary Risk Factors Are:: Lack of regular exercise Recommendations Recommendations Include:: Benefits of regular exercise Response Code Sedentary Response Code:: Patient communicates acknowledgment and Family communicates acknowledgment Stress Risk Factors Patient Stress Risk Factors Are:: Patient denies stress as a risk factor Recommendations Recommendations Include:: Identification of stressors, and assessment of coping skills and Stress management techniques Response Code Stress Response Code:: Patient communicates acknowledgment
== END 2023-06-03 10:00 | disposition home or self-care (01) ==
LOC: CLSP 11:14 → PCU 12:23
PROVIDERS: Admitting Provider Internal Medicine Cardiovascular Disease; PCP Family Medicine; Referring Provider Internal Medicine Cardiovascular Disease; Visit Provider Internal Medicine Cardiovascular Disease
DX: I25.10 Atherosclerotic heart disease of native coronary artery without angina pectoris (principal); I10 Essential (primary) hypertension; G47.33 Obstructive sleep apnea (adult) (pediatric); R00.1 Bradycardia, unspecified; I44.0 Atrioventricular block, first degree; J45.909 Unspecified asthma, uncomplicated; Z79.899 Other long term (current) drug therapy; Z79.82 Long term (current) use of aspirin; I25.5 Ischemic cardiomyopathy; K21.9 Gastro-esophageal reflux disease without esophagitis; E78.5 Hyperlipidemia, unspecified; F17.220 Nicotine dependence, chewing tobacco, uncomplicated; Z95.0 Presence of cardiac pacemaker
CPT/HCPCS: 36415; 80053; 85027; 85347; 92928; 93005; 96360; 96361; 99152; 99153; 99221; C1874; J7030; J7040; Q9967; C1725; C1769; C1887; C1894; C9600; G0378

== ENCOUNTER → 2023-06-10 | Outpatient (CLI) | payer OTHER, SELFPAY ==
--- NOTE | 2023-06-10 07:57 | CR.ITP_ITS ---
Diagnosis General Information Admitting Diagnosis: PCI w/coronary stenting Secondary Diagnosis: HTN, HLD, Obesity BMI>33, Ischemic Cardiomyopathy, Pacemaker device. Personal Learning Style:: Audio/Visual and Written Barriers to Learning: Hearing Impairment (Bilateral Hearing Aids) and Vision Impairment (Wears glasses) Stage of change r/t lifestyle modifications:: Preparation Gave educational material for:: Treating Heart Disease, How The Heart Works, What it means to have Heart Disease, How Coronary Artery Disease is Diagnosed, Heart Procedures, What Heart Medications Do, Risk Factors & Modifications, Living an Active Life, Nutrition, Emotions & Heart Disease, Stress Management & Relaxation and Sleep Disorders & Heart Disease Education/Goals Individual Counseling: Initial Assessment: Nicotine/Smoking (Smokeless tobacco dependence (chew)), Abnormal Cholesterol Levels, High Blood Pressure and Overweight/Obesity Cardiac Rehabilitation Goals Personal Goals: Initial Assessment: Improve management of stress and emotions, Improve energy level, Improve knowledge of cardiac disease, Improve muscle st rength and endurance, Improve diet and eating habits (eat healthier) and Control risk factors (learn risk factor modification) Scale for measuring improvement of personal goals Diagnosis & Disease Process Outcomes/Goals: Pt IDs own risk factors & lifestyle modifications by Session 10, Verbalizes symptoms of angina & response by session 3. and Pt independently manages Plan/Interventions: Assist Pt to ID & engage in lifestyle modification to reduce CVD risk, Instruct on individual risk factors, Review symptoms of angina & emergency actions and Review secondary diagnosis & identify educational needs. Safety Referral to Physical Therapy: No Referral to [facility] Case Management: No Fall Risk Assessed:: Yes Assistive Devices:: None Exercise - Initial Assessment Visit Date of Eval: 06/10/23 Session #:: 0 (Pre-program assessment) Mets: Pre-: >7 METS for 30 minutes by discharge Physician Prescribed Exercise Modalities: Treadmill, Rower, Airdyne and NuStep Frequency: 3x/week for 12 weeks [36 sessions] Intensity: 60-80% of age predicted maximum heart rate reserve Duration: 30 - 45 minutes Current METSs:: 3.0 Target Heart Rate:: 95-110 Resting Blood Pressure: 135/76 EKG Type: Atrail sensed ventricular paced rhythm Outcomes & Goals Goals:: Verbalizes understanding of THR, RPE & goal METS by session 6, Documents in home exercise log/reports 30 min aerobic 5 day/wk by DC and Demonstrates accurate pulse taking by DC Intervention & Plan Exercise Program Goals: Instruct on personal THR & RPE, Instruct on MET level & personal MET goal, Show patient to take own pulse /validate performance until accurate and Instruct on home exercise Physical Activity Home Exercise Physical Activity - Home Exercise: Safe Exercise, Warm-up, Self-monitoring, Cool-Down, Home Exercise > 30 min Daily and Sitting Time <3 hours/daily Outcomes & Goals Outcomes/Goals: Demonstrates correct Warm-up/exercise Cool-Down (S3) if = 2.5 METs, Verbalizes symptoms of exercise intolerance by Session 3 (S3) and Demonstrate safe equipment use (S3) & follows exercise prescrition (6) Intervention & Plan Plan/Intervention: Instruct warm-up & cool-down if exercising at > 2 METs, Instruct on symptoms of exercise intolerance & actions to take, Instruct & monitor on saf and Assess intial functional capacity & safety risk Nutrition - Initial Assessment Program Goals Nutrition Program Goals Patient has diagnosis of Hyperlipidemia (ICD E78)?: Yes Visit Date of Eval: 06/10/23 Session #:: 0 (Pre-program assessment) Cholesterol/Lipids (Other Core Measures) Determine presence & major risk factors that modify LDL goal: Hypertension or hypertensive medication and Age men > 45 years; women >/= 55 years Outcomes/Goals: Pt IDs own risk factors & lifestyle modifications by Session 10, Verbalizes symptoms of angina & response by session 3. and Pt independently manages Intervention/Plan: Instruct on personal lipid levels & lipid goals/NCEP guidelines and Instruct on cholesterol Referral to dietitian:: Yes Diabetes (Other Core Measures) Diabetes Type: Not Applicable Weight Mgt (Other Care) Not Applicable: Yes Height: 5 ft 7 in Weight:: 215 lb BMI: 33.6 Diagnosis Overweight/Obesity BMI> 30% ICD-10 E66: Yes Diagnosis High BMI/Morbid Obesity BMI> 35% ICD-10 Z68: No Outcomes/Goals: Pt sets, maintains & shows weight loss goal & trend during rehab Intervention/Plan: Instruct on ideal BMI & set weight loss goal w/patient, Assist pt to ID & incorporate diet changes for weight loss by S9, Refer to Structured Weight Loss program as appropriate and Encourage goal of using 250- 300dcal per session for weight loss Healthy Eating Habits Will attend diet classes:: Yes Outcomes/Goals:: Consume diet rich in vegs,fruits,whole grain/high fiber,fish,lean meat and Limit sat/trans fats,cholesterol & added salts & sugars Intervention/Plan:: Assess current eating habits Education Gave educational materials for:: Healthy eating Core - Initial Assessment Visit Date of Eval: 06/10/23 Session #:: 0 (Pre-program assessment) Medication Compliance Preventative Medication(s):: Aspirin, Ticagrelor/P2Y12 inhibitor, Statin/lipid and Beta laura H/O mental health issues: depression, anxiety, or addiction?: No Doesn?t believe in the benefits of treatment?: No Believes medications are unnecessary or harmful?: No Has a concern about medication side effects?: No Expresses concern over the cost of medications?: No Outcomes/Goals: Verbalizes medications,desired effect & common side effects @ DC and Keeps card in wallet w/medications listed by DC Interventions/plans: Instruct on medication effects & side effects, Review medication list w/patient every two weeks and Instruct importance of taking meds as ordered & assist problem solving Tobacco Use Tobacco Use: Chew Do you use smokeless tobacco?: Yes Outcomes/Goals: Smoking cessation achieved or maintained by discharge and Identify aids/strategies for achieving smoking cessation by session 6 Interventions/plan: Instruct on effects of smoking & provide smoking cessation resource, Assist pt to set quit date & provide encouragement, Assist pt to develop strategies to achieve/maintain quit date and Assist pt w/nicotine replacement & medication for cessation success Hypertension Hypertension Diagnosis:: Hypertension ICD-10 I10 Resting Blood Pressure:: 135/76 [place] [employer] Hypertension Guidelines Outcomes/Goals: Able to verbalize/achieve optimal blood pressure <130/80 and Incorporates diet changes & exercise for blood pressure control by DC Interventions/plan: Instruct on optimal blood pressure, hypertension & medications and Instruct on effects of sodium, alcohol, stress, exercise &hypertension Tobacco Cessation Referral Smoking Cessation Referral:: Yes Individual Education/Counseling:: Yes Education Schedule Given:: Yes Psychosocial - Initial Assess VIsit Date of Eval: 06/10/23 Session #:: 0 (Pre-program assessment) Not Applicable: Yes History of previous Mental disease:: No Target Goals Target Goals Psychosocial Test Tool Used:: [employer] QOL Cardiac and PHQ-9 Questionnaire phq-9 Severity Referral to Behavioral Health PS - Interventions: Yes: Attend Stress Management Classes and No: Referral to Behavioral Health if PHQ-9 score >9:, No: Referral to [facility] and No: Referral to Physician if PHQ-9 if score is 5-9: Outcomes/Goals: See list Psychosocial Outcomes/Goals:: ID's personal stressors & 2 strategies to manage stress by discharge Intervention/Plan: See List Interventions/Plan:: Assess stressors,coping strategies & signs of derpression on admission, Instruct/assist pt to develop coping & personal stress Mgt cory perez, Instruct patient to recognize signs & symptoms of depression and Instruct patient to recog Patient Health Questionnaire PHQ-9 Screening Initial Assessment: 1. Little interest or pleasure in doing things: Not at all 2. Feeling down, depressed, or hopeless: Not at all 3. Trouble falling or staying asleep, or sleeping too much: Not at all 4. Feeling tired or having little energy: More than half the days 5. Poor appetite or overeating: Several days 6. Feeling bad about yourself -- or that you are a failure or have let yourself or your family down: Not at all 7. Trouble concentrating on things, such as reading the newspaper or watching television: Not at all 8. Moving or speaking so slowly that other people could have noticed. Or the opposite - being so fidgety or restless that you have been moving around a lot more than usual: Not at all 9. Thoughts that you would be better off , or of hurting yourself in some way: Not at all How difficult have these problems made it for you to do your work, take care of things at home, or get along with other people?: Not difficult at all Total Score: 3 OSEI-Q SV Test Statements CAD is a disease of the arteries in the heart: False Examples of risk factors for heart disease: True Angina is chest pain or discomfort: True The benefits of resistance training include: True Eating more meat and dairy products: False Anti-platelet medications such as aspirin are important: True The only effective way to manage stress: False An exercise warm-up slowly increases heart rate: True Prepared, processed foods usually have high sodium: True Depression is common after a heart attack: True The statin medications lower cholesterol: True To control blood pressure, lower the amount of sodium: True If someone gets chest discomfort during walking: False Transfats are partially hydrogenated vegetable oils: True Sleep apnea that is not treated increases the risk: False To control cholesterol, one should become a vegetarian: True Someone knows if he/she is exercising at the right level: I Don't Know Diabetes cannot be prevented with exercise & health eating: False Stress is a large risk for heart attack: True A diet that can help lower blood pressure is rich in: True Total Score Total Correct Responses: 18 Self-Efficacy 6-Item Scale Initial Assessment: We would like to know how confident you are in doing certain activities. Please select your confidence level for: Fatigue Select Number: 7 Physical Discomfort or Pain Select Number: 10 Emotional Distress Select Number: 10 Other Symptoms or Health Problems Select Number: 8 Different Tasks and Activities Select Number: 8 Medication Select Number: 8 Total Score:: 8 Nutrition Survey Nutrition Survey Instructions Scoring Instructions Nutrition Survey Initial: Have you lost >10 lbs over the past 2 months without trying?: No Are you following a special diet at home for diabetes, low fat, or low salt?: Yes Are you interested in meeting with a dietitian for help understanding your diet?: No Do you eat less than 3 meals a day?: No Do you eat fatty meats ([place], sausage, ribs, etc), fried foods, desserts, large amounts of salad dressings, margarine, butter, or cheese most days?: No Do you have food allergies? [Enter types in comment field]: No Do you eat in restaurants more than 3 times a week?: No Do you season food with salt, seasoning salt, or garlic salt?: Yes Do you used canned, boxed, frozen meals, or soups, seasoning packets?: No Total Score:: 2 Exercise - Final/Discharge Physician Prescribed Exercise Modalities: Treadmill, Rower, Airdyne and NuStep Frequency: 3x/week for 12 weeks [36 sessions] Intensity: 60-80% of age predicted maximum heart rate reserve Current METSs:: 3.0 Target Heart Rate:: 95-110 Nutrition - 30-Day Assessment Weight Mgt (Other Care) Height: 5 ft 7 in Weight:: 215 lb BMI: 33.6 Nutrition - 60-Day Assessment Weight Mgt (Other Care) Height: 5 ft 7 in Weight:: 215 lb BMI: 33.6 Core - 30-Day Assessment Visit Session #:: 0 (Pre-program assessment) Core - Final Assessment Hypertension Resting Blood Pressure:: 135/76 [place] [employer] Hypertension Guidelines Core - 60-Day Assessment Hypertension Resting Blood Pressure:: 135/76 [place] [employer] Hypertension Guidelines Psychosocial - 30-Day Assess Target Goals Target Goals Referral to Behavioral Health PS - Interventions: Yes: Attend Stress Management Classes and No: Referral to Behavioral Health if PHQ-9 score >9:, No: Referral to [facility] and No: Referral to Physician if PHQ-9 if score is 5-9: Psychosocial - 60-Day Assess Target Goals Target Goals Referral to Behavioral Health PS - Interventions: Yes: Attend Stress Management Classes and No: Referral to Behavioral Health if PHQ-9 score >9:, No: Referral to [facility] and No: Referral to Physician if PHQ-9 if score is 5-9: Psychosocial - 90-Day Assess Target Goals Target Goals Referral to Behavioral Health PS - Interventions: Yes: Attend Stress Management Classes and No: Referral to Behavioral Health if PHQ-9 score >9:, No: Referral to [facility] and No: Referral to Physician if PHQ-9 if score is 5-9: Psychosocial - Final Assessmen Target Goals Target Goals Referral to Behavioral Health PS - Interventions: Yes: Attend Stress Management Classes and No: Referral to Behavioral Health if PHQ-9 score >9:, No: Referral to [facility] and No: Referral to Physician if PHQ-9 if score is 5-9: Nutrition - 90-Day Assessment Weight Mgt (Other Care) Height: 5 ft 7 in Weight:: 215 lb BMI: 33.6 Nutrition - Final Assessment Program Goals Patient has diagnosis of Hyperlipidemia (ICD E78)?: Yes Weight Mgt (Other Care) Height: 5 ft 7 in Weight:: 215 lb BMI: 33.6
--- NOTE | 2023-06-10 07:57 | PCM.CR.HP2 ---
CR - History & Physical General Arrival date:: 06/10/23 Arrival time:: 07:50 Date of Referral:: 06/02/23 Date of CR Evaluation:: 06/10/23 Referring Physician: Dr. James Manuel Primary Diagnosis: PCI w/coronary stenting History of Present Cardiac Event Onset Date PTCA or coronary stenting:: Yes Vessel: mid LAD, and distal LAD Type of Symptoms:: March 2022 pacemaker implant, April 2023 was admitted to the hospital with Non STEMI Interventions with present event:: Pacemaker for periods of heart block 2022, Heart Cath Apr 2023 for stenting Were there any complications?: No, patient has a lot of questions about heart disease. (education) Medications Ambulatory Orders Medication Instructions Recorded amlodipine 10 mg tablet 10 mg PO DAILY blood pressure 08/17/21 losartan 100 mg tablet 100 mg PO DAILY blood pressure 08/17/21 testosterone 75 mg implant pellet 75 mg implant .Q 4MONTHS hormone 10/03/21 famotidine 20 mg tablet (Pepcid AC) 20 mg PO DAILY reflux 03/18/22 fluticasone propionate 50 1 spray intranasal DAILY PRN 03/18/22 mcg/actuation nasal ALLERGIES spray,suspension multivitamin 1 tab PO DAILY vitamin 03/18/22 doxazosin 4 mg tablet 4 mg PO QHS prostate #90 tabs 08/06/22 aspirin 81 mg tablet,delayed 81 mg PO DAILY heart health 30 04/23/23 release (Adult Aspirin Regimen) days #30 tabs atorvastatin 80 mg tablet 80 mg PO DAILY 30 days #30 tabs 04/23/23 ticagrelor 90 mg tablet (Brilinta) 90 mg PO BID 1 month #60 tabs 04/23/23 carvedilol 12.5 mg tablet 12.5 mg PO BID #180 tabs 05/04/23 empagliflozin 10 mg tablet 10 mg PO DAILY #90 tabs 05/04/23 (Jardiance) mecobalamin (vitamin B12) 1,000 1,000 mcg PO DAILY 05/04/23 mcg chewable tablet nitroglycerin 0.4 mg sublingual 0.4 mg sublingual Q5-15M PRN chest 05/04/23 tablet (Nitrostat) pain #25 tabs sildenafil 100 mg tablet (Viagra) 100 mg PO DAILY PRN sexual 05/04/23 activity #10 tabs spironolactone 25 mg tablet 25 mg PO DAILY #90 tabs 05/04/23 terbinafine HCl 250 mg tablet 250 mg PO DAILY 05/04/23 Allergies Allergies No Known Allergies Allergy (Verified 05/04/23 08:33) Sleep Disorder Evaluation Hx of Sleep Apnea: Yes Do you snore loudly (louder than talking or can be heard through closed doors)?: Yes Do you often feel tired/ fatigued/ sleepy during daytime?: Yes Has anyone observed you stop breathing during sleep?: Yes History of Hypertension (for STOP score): Yes STOP Results: Positive has home unit Advanced Directives Advanced Directives Power of Language Teacher: Yes Living Will: Yes Advance Directives Information Provided: No Advance Directives on File: No DNR Order?:: No MOLST See MOLST form: No Past Medical History Covid-19 Screening Physicial Symptoms Fever: No Unexplained muscle aches: No Current respiratory symptoms: No Upper respiratory infections symptoms: No Gastro-intestinal symptoms: Yes (History of gastric reflux and GERD) Suy-Xbqd-Wdnhey symptoms: No Other Clinical Concerns Has tested positive for COVID-19 in last 30 days: No Exposure Risk Had contact w/person w/symptoms or Covid-19 (+) last 14 days: No Has High Risk Exposures ID'd by Health dept/Inf Control team: No Pertinent Comorbidities 65 years or older:: Yes Lives in Assisted Living facility:: No Has a chronic lung disease or moderate to severe asthma:: Yes Has a serious heart condition:: No Immunocompromised:: No Severely obese (Body Mass Index of 40 or higher):: Yes Diabetic:: No Has chronic kidney disease undergoing dialysis:: No Has liver disease:: No Past Medical Illness Past Medical History Asthma J45.909 USES INHALER RARELY, CAN'T REMEMBER NAME OF IT Atherosclerosis of coronary artery of [place] heart without angina pectoris I25.10 Back pain M54.9 Cardiology follow-up encounter Z09 [facility], LAST VISIT 08/06/2022 Cardiomyopathy, ischemic I25.5 Chest pain R07.9 Constipation K59.00 CPAP (continuous positive airway pressure) dependence Z99.89 Essential hypertension I10 CONTROLLED ON MED Gastric reflux K21.9 GERD (gastroesophageal reflux disease) K21.9 Patient has a history of chronic GERD symptoms which he manages with daily Pepcid. He denies any prior history of prior EGD. Yet with his history as a male over the age of 50, tobacco use, obesity, and chronic GERD symptoms I have recommended screening for Ansari's esophagus. Patient is receptive of this recommendation we will look to add this prescreening to his colonoscopy discussed above. History of colon polyps Z86.010 This is a 72-year-old male who arrives for scheduling of a surveillance colonoscopy given a history of colonic polyps?specifically serrated adenoma of the right colon in 2019. Unfortunately his endoscopy was complicated by postprocedural bleeding that required repeat endoscopy as well as what I would assume would be CT angiography. Fortunately, patient's bleeding did remit spontaneously and even underwent a inguinal hernia repair of the same admission. Given his pathology, a 3-year follow-up was recommended. At this time patient denies any significant changes to his bowel movements that suggested a concern. From a familial history, he does not appear to be at any increased risk for colon cancer. Therefore, I have recommended that we proceed with a up-to-date surveillance colonoscopy at our mutual convenience preceded by a 2-day prep given his history of constipation. Patient was initially reluctant for the 2-day prep recommendation, but then did express understanding. I also informed him that I would not advise being overly aggressive with any significant polyp resections of the right colon and he expressed understanding of this information as well. History of echocardiogram Z92.89 10/18/2021 History of Holter monitoring Z98.890 03/04/22 History of pacemaker Z95.0 NEW PACEMAKER PLANNED TO BE PLACED 03/24/22 History of stress test Z92.89 06/14/2020, [facility] Hx of cardiac pacemaker Z95.0 03/2022 Hyperlipidemia E78.5 Hypertension I10 Kidney stones N20.0 Low testosterone R79.89 Mobitz type 2 second degree atrioventricular block I44.1 on Holter/03/04/22 Myocardial infarct I21.9 Nicotine dependence F17.200 chewing tobacco, REPORTED NOT TO USE DOS Non-ST elevation VT (NSTEMI) I21.4 Obesity E66.9 Pacemaker Z95.0 Presence of cardiac pacemaker Z95.0 Prostate enlargement N40.0 Sleep apnea G47.30 Smoker F17.200 Wears glasses Z97.3 Wears hearing aid Z97.4 Past Surgical History Past Surgical History (Updated 06/02/23 @ 15:28 by Tasneem Larson) History of colonoscopy Z98.890 2019 History of herniorrhaphy Z98.890, Z87.19 Left inguinal History of left heart catheterization (LHC) (~04/22/23) Z98.890 History of lithotripsy Z98.890 History of tonsillectomy Z90.89 History of transurethral resection of prostate Z98.890, Z90.79 03/09/2022 History of vasectomy Z98.52 Stented coronary artery (~06/02/23) Z95.5 PTCA/NAOMI Prox LAD using [place] 2.5x15 mm, post-dilated using 2.75 mm balloon. Ostial D1 dilated using 2.0 mm balloon. NAOMI Mid LAD using [place] 2.25x15 mm (04/22/23),NAOMI Mid OM2 using [place] 2.25x12 mm and NAOMI distal LAD using [place] 2.0x8 mm (06/02/23) Family History Summary Family History Grandfather Heart disease paternal Father Heart disease CAD (coronary artery disease) Diabetes Hypertension Myocardial infarction Mother Hypertension Breast cancer Social History Smoking History Smoking Status: Current some day smoker (Use of smokeless tobacco use current someday.) Hx Tobacco Use: Yes Hx Smoking Exposure: No Alcohol Use Alcohol Usage: Yes (Moderate use) Substance Abuse Hx Substance Use: No Occupation Occupation (List type of work in comments):: Employed (full-time work [employer]) Hobbies, Recreation, Social Activities Hobbies: Sports (Target shooting), Reading and Other (Lawn work, gardening etc.) Recreational Activities: I am able to engage in all my recreational activities Social Environment Current Living Arrangements Living Environment:: Alone Children How many children do you have?: 2 Do any of your children live nearby?: No (90 minutes and [place]) Safety Do you feel safe in your surroundings?: Yes Assistance Do you need any assistance at home?: no Review of Systems Review of Systems Hints Review of Present Symptoms: Reports Shortness of Breath with Exertion (Alittle bit, but improved since the stent), Heart Arrhythmia/Irregularities (MObit II Heart block - pacemaker device), Appetite - Normal, Appetite - Special Diet and Sleep - Normal; Denies Shortness of Breath at Rest, Angina, Dizziness/Lightheadedness or Sexual Changes Pain Is Patient Pain Free?: Yes Pain Location: lower extremity (left foot and big toe on right foot.) Pain Level: 03/11 Risk Factor Assessment Vital Signs Temperature: 98.8 F Respiratory Rate: 12 Pulse Ox: 96 Blood Pressure: 135/76 Pulse Pulse Rate: 81 Pulse Rhythm: Regular Hypertension How long have you been treated?: a long time On medication(s)?: Yes Blood Pressure Sitting - Right Arm: 135/76 Diabetes Nutrition Referral for Diabetes: No Obesity Height: 5 ft 7 in Weight:: 215 lb Weight in Pounds: 215.0 lbs Weight Source: Stated by Patient Body Mass Index (BMI): 33.6 Nutritional Referral for Obesity: Yes Physical Inactivity Physical Inactivity: Physically demanding job and 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, mops, etc.) Risk Stratification Risk Guidelines: Lowest Risk: Risk Factor for Sedentary Lifestyle and Risk Factor for Depression and Highest Risk: Risk Factor for Smoking, Risk Factor for Obesity and Risk Factor for Hypertension For Smoking Smoking Risk Guidelines For Dyslipidemia Dyslipidemia Risk Guidelines For Diabetes Mellitus Diabetes Risk Guidelines For Obesity/Overweight Obesity/Overweight Risk Guidelines For Hypertension Hypertension Risk Guidelines For Sedentary Lifestyle Sedentary Lifestyle Risk Guidelines For Depression Depression Risk Guidelines Family History Family History Grandfather Heart disease paternal Father Heart disease CAD (coronary artery disease) Diabetes Hypertension Myocardial infarction Mother Hypertension Breast cancer Motivation Motivation to Participate On a scale of 1 to 10, how prepared are you to commit to attending program?: 8 What do you see as barriers to successfully being able to complete the program?: Work schedule What do you see as the benefits of succesfully completing the program? In other words, what do you hope to get out of participating in the program?: Good health, inprove knowledge of heart disease Are there issues you are dealing with that will interfere with completing the program?: Work schedule Do you have a spouse or signficant other, family or friends who will help support you to complete the program?: yes
[2023-06-10 08:05] VITALS: BP 135/76; PULSE 81; RESP 12; TEMP 37.1; O2SAT 96; BMI 33.6
[2023-06-10 08:13] VITALS: BP 135/76; BMI 33.6
== END | disposition home or self-care (01) ==
PROVIDERS: PCP Family Medicine; Referring Provider Internal Medicine Cardiovascular Disease; Visit Provider Internal Medicine Cardiovascular Disease
DX: Z95.5 Presence of coronary angioplasty implant and graft (principal); I10 Essential (primary) hypertension; E78.5 Hyperlipidemia, unspecified; E66.9 Obesity, unspecified; Z95.0 Presence of cardiac pacemaker; I25.2 Old myocardial infarction; R06.83 Snoring; R53.83 Other fatigue; Z68.33 Body mass index [BMI] 33.0-33.9, adult; J45.909 Unspecified asthma, uncomplicated; I25.10 Atherosclerotic heart disease of native coronary artery without angina pectoris; I25.5 Ischemic cardiomyopathy; Z99.89 Dependence on other enabling machines and devices; K21.9 Gastro-esophageal reflux disease without esophagitis; I44.1 Atrioventricular block, second degree; G47.30 Sleep apnea, unspecified; Z98.890 Other specified postprocedural states; Z87.19 Personal history of other diseases of the digestive system; Z90.89 Acquired absence of other organs; Z90.79 Acquired absence of other genital organ(s); Z98.52 Vasectomy status; F17.220 Nicotine dependence, chewing tobacco, uncomplicated; R06.02 Shortness of breath; I49.9 Cardiac arrhythmia, unspecified

== ENCOUNTER 2023-06-26 08:00 | Outpatient (RCR) | payer OTHER, SELFPAY ==
[2023-06-10 08:13] VITALS: BMI 33.6
== END 2023-06-30 23:59 ==
LOC: CR 08:00
PROVIDERS: PCP Family Medicine; Referring Provider Internal Medicine Cardiovascular Disease; Visit Provider Internal Medicine Cardiovascular Disease
DX: I21.4 Non-ST elevation (NSTEMI) myocardial infarction (principal); Z95.5 Presence of coronary angioplasty implant and graft; I25.5 Ischemic cardiomyopathy
CPT/HCPCS: 93798

== ENCOUNTER 2023-07-31 08:00 | Outpatient (RCR) | payer OTHER, SELFPAY ==
[2023-06-10 08:13] VITALS: BMI 33.6
--- NOTE | 2023-07-08 09:10 | CR.ITP_ITS ---
Exercise - Initial Assessment Visit Session #:: 11 Nutrition - Initial Assessment Weight Mgt (Other Care) Height: 5 ft 7 in Weight:: 212 lb BMI: 33.2 Psychosocial - Initial Assess Target Goals Target Goals Patient Health Questionnaire PHQ-9 Screening 30-Day Re-eval Assessment: 1. Little interest or pleasure in doing things: Not at all 2. Feeling down, depressed, or hopeless: Not at all 3. Trouble falling or staying asleep, or sleeping too much: Not at all 4. Feeling tired or having little energy: More than half the days 5. Poor appetite or overeating: Several days 6. Feeling bad about yourself -- or that you are a failure or have let yourself or your family down: Not at all 7. Trouble concentrating on things, such as reading the newspaper or watching television: Not at all 8. Moving or speaking so slowly that other people could have noticed. Or the opposite - being so fidgety or restless that you have been moving around a lot more than usual: Not at all 9. Thoughts that you would be better off , or of hurting yourself in some way: Not at all How difficult have these problems made it for you to do your work, take care of things at home, or get along with other people?: Not difficult at all Total Score: 3 Self-Efficacy 6-Item Scale 30-Day Re-eval Assessment: We would like to know how confident you are in doing certain activities. Please select your confidence level for: Fatigue Select Number: 7 Physical Discomfort or Pain Select Number: 10 Emotional Distress Select Number: 10 Other Symptoms or Health Problems Select Number: 8 Different Tasks and Activities Select Number: 8 Medication Select Number: 8 Total Score:: 8 Nutrition Survey Nutrition Survey Instructions Scoring Instructions Exercise - 30-day Assessment Visit Date of Eval: 07/08/23 Session #:: 11 Physician Prescribed Exercise Modalities: Treadmill, Airdyne and NuStep Frequency: 3x/week for 12 weeks [36 sessions] Intensity: 60-80% of age predicted maximum heart rate reserve Duration: 30 - 45 minutes Current METSs:: 4 Target Heart Rate:: 95-110 Current RPE:: 11-13 Maximum Excercise HR:: 94 Resting Blood Pressure: 108/50 Maximum Exercise Blood Pressure: 124/62 EKG Type: Atrial sensed ventricular paced Outcomes & Goals Goals:: Verbalizes understanding of THR, RPE & goal METS by session 6, Documents in home exercise log/reports 30 min aerobic 5 day/wk by DC, Demonstrates accurate pulse taking by DC and Other additional outcome/goals: see below Intervention & Plan Exercise Program Goals: Instruct on personal THR & RPE, Instruct on MET level & personal MET goal, Show patient to take own pulse /validate performance until accurate, Instruct on home exercise and Other additional plan/int 30-day Reassessments 30 day Reassessments:: Progressing Reassessment Notes & Comments:: RPE explained Physical Activity Home Exercise Physical Activity - Home Exercise: Safe Exercise, Warm-up, Self-monitoring, Cool-Down, Home Exercise > 30 min Daily and Sitting Time <3 hours/daily Outcomes & Goals Outcomes/Goals: Demonstrates correct Warm-up/exercise Cool-Down (S3) if = 2.5 METs, Verbalizes symptoms of exercise intolerance by Session 3 (S3), Demonstrate safe equipment use (S3) & follows exercise prescrition (6) and Other: See below Intervention & Plan Plan/Intervention: Instruct warm-up & cool-down if exercising at > 2 METs, Instruct on symptoms of exercise intolerance & actions to take, Instruct & monitor on saf, Assess intial functional capacity & safety risk and Other See below 30-day Reassessments 30 day Reassessments:: Progressing Reassessment Notes & Comments:: warm up encouraged Nutrition - 30-Day Assessment Program Goals Nutrition Program Goals Patient has diagnosis of Hyperlipidemia (ICD E78)?: Yes Visit Date of Eval: 07/08/23 Session #:: 11 Cholesterol/Lipids (Other Core Measures) Determine presence & major risk factors that modify LDL goal: Hypertension or hypertensive medication, Low HDL cholesterol <40 mg/dL*, Family history of premature CHD in Male < 55 years: female <65 yearsFa and Age men > 45 years; women >/= 55 years Outcomes/Goals: Pt IDs own risk factors & lifestyle modifications by Session 10, Verbalizes symptoms of angina & response by session 3., Pt independently manages and Other Additional Outcomes/Goals: Intervention/Plan: Advocate for lipid panel cholesterol medication if applicable, Instruct on personal lipid levels & lipid goals/NCEP guidelines, Instruct on cholesterol and Other additional plan/int Referral to dietitian:: Yes 30-day Reassessments:: Progressing Reassessment Notes & Comments:: pt to see dietitian Diabetes (Other Core Measures) Diabetes Type: Not Applicable Weight Mgt (Other Care) Height: 5 ft 7 in Weight:: 212 lb BMI: 33.2 Diagnosis Overweight/Obesity BMI> 30% ICD-10 E66: Yes Diagnosis High BMI/Morbid Obesity BMI> 35% ICD-10 Z68: No Outcomes/Goals: Pt sets, maintains & shows weight loss goal & trend during rehab and Other additional outcomes/goals Intervention/Plan: Instruct on ideal BMI & set weight loss goal w/patient, Assist pt to ID & incorporate diet changes for weight loss by S9, Refer to Structured Weight Loss program as appropriate, Encourage goal of using 250- 300dcal per session for weight loss and Other additional plan/interventions 30 day Reassessments:: Progressing Reassessment Notes & Comments:: pt to attend nutrition class Healthy Eating Habits Will attend diet classes:: Yes Outcomes/Goals:: Consume diet rich in vegs,fruits,whole grain/high fiber,fish,lean meat, Limit sat/trans fats,cholesterol & added salts & sugars and Other additional outcome/goals: Intervention/Plan:: Assess current eating habits and Other Additional plan/interventions 30-day Reassessments:: Progressing Reassessment Notes & Comments:: pt to attend nutrition class Education Gave educational materials for:: Signs & symptoms of hypoglycemia, Signs & symptoms of hyperglycemia, Relate diabetes to coronary artery disease and Healthy eating Nutrition - 60-Day Assessment Weight Mgt (Other Care) Height: 5 ft 7 in Weight:: 212 lb BMI: 33.2 Core - 30-Day Assessment Visit Date of Eval: 07/08/23 Session #:: 11 Medication Compliance Preventative Medication(s):: Aspirin, Ticagrelor/P2Y12 inhibitor, Statin/lipid and Beta laura H/O mental health issues: depression, anxiety, or addiction?: No Doesn?t believe in the benefits of treatment?: No Believes medications are unnecessary or harmful?: No Has a concern about medication side effects?: No Expresses concern over the cost of medications?: No Outcomes/Goals: Verbalizes medications,desired effect & common side effects @ DC, Pt self-reports following medication regimen, Keeps card in wallet w/medications listed by DC and Other additional outcome/goals: Interventions/plans: Instruct on medication effects & side effects, Review medication list w/patient every two weeks, Instruct importance of taking meds as ordered & assist problem solving and Other additional 30-day Reassessments:: Progressing Reassessment Notes & Comments:: encouraged to take meds Tobacco Use Tobacco Use: Chew Do you use smokeless tobacco?: Yes Outcomes/Goals: Smoking cessation achieved or maintained by discharge, Identify aids/strategies for achieving smoking cessation by session 6 and Other additional outcome/goals Interventions/plan: Instruct on effects of smoking & provide smoking cessation resource 30-day Reassessments:: Progressing Reassessment Notes & Comments:: encouraged to stop chewing Hypertension Hypertension Diagnosis:: Hypertension ICD-10 I10 Resting Blood Pressure:: 108/50 [place] [employer] Hypertension Guidelines Peak Exercise Blood Pressure:: 124/62 Outcomes/Goals: Able to verbalize/achieve optimal blood pressure <130/80, Incorporates diet changes & exercise for blood pressure control by DC and Other additional outcomes/goals Interventions/plan: Instruct on optimal blood pressure, hypertension & medications, Instruct on effects of sodium, alcohol, stress, exercise &hypertension and Other additional plan/interventions 30 day Reassessments:: Met Tobacco Cessation Referral Smoking Cessation Referral:: No Individual Education/Counseling:: No Education Schedule Given:: Yes Psychosocial - 30-Day Assess VIsit Date of Eval: 07/08/23 Session #:: 11 History of previous Mental disease:: No Target Goals Target Goals Outcomes/Goals: See list Psychosocial Outcomes/Goals:: ID's personal stressors & 2 strategies to manage stress by discharge and Other Additional outcome/goals: Intervention/Plan: See List Interventions/Plan:: Assess stressors,coping strategies & signs of derpression on admission, Instruct/assist pt to develop coping & personal stress Mgt strategies, Refer to Behavioral Health if appropriate, Refer to Physician if appropriate, Instruct patient to recognize signs & symptoms of depression, Instruct patient to recog and Other additional plan/intervention 30-day Reassessments: 30 day Reassessments:: Met Psychosocial - 60-Day Assess Target Goals Target Goals Outcomes/Goals: See list Psychosocial Outcomes/Goals:: ID's personal stressors & 2 strategies to manage stress by discharge and Other Additional outcome/goals: Psychosocial - 90-Day Assess Target Goals Target Goals Psychosocial - Final Assessmen Target Goals Target Goals Nutrition - 90-Day Assessment Weight Mgt (Other Care) Height: 5 ft 7 in Weight:: 212 lb BMI: 33.2 Nutrition - Final Assessment Weight Mgt (Other Care) Height: 5 ft 7 in Weight:: 212 lb BMI: 33.2
[2023-07-08 09:22] VITALS: BP 108/50; BMI 33.2
== END 2023-07-31 23:59 ==
LOC: CR 08:00
PROVIDERS: PCP Family Medicine; Referring Provider Internal Medicine Cardiovascular Disease; Visit Provider Internal Medicine Cardiovascular Disease
DX: I21.4 Non-ST elevation (NSTEMI) myocardial infarction (principal); Z95.5 Presence of coronary angioplasty implant and graft
CPT/HCPCS: 93798

== ENCOUNTER → 2023-08-20 | Outpatient (CLI) | payer OTHER, SELFPAY ==
[2023-06-10 08:13] VITALS: BMI 33.6
[2023-07-08 09:22] VITALS: BMI 33.2
[2023-08-10 08:28] VITALS: BMI 32.2
--- NOTE | 2023-08-20 13:39 | ECHOCS_ITS ---
Reason For Study: ISCHEMIC CARDIOMYOPATHY Procedure This was a 2D Doppler, Color Flow transthoracic echocardiogram. Contrast injection was performed. The study was technically difficult. Exam performed in department. Left Ventricle Normal LV size. The left ventricular ejection fraction is 35 %. Moderately severe segmental systolic dysfunction (see wall motion). Stage 1 diastolic dysfunction. [place] : Akinetic. There is moderate global hypokinesis of the left ventricle. Right Ventricle Normal RV size. ICD or pacer leads identified within the right ventricle. Normal systolic function. Atria Normal left atrium. Normal right atrium. Mitral Valve Normal mitral valve. Tricuspid Valve Normal tricuspid valve. Aortic Valve Trisinus/trileaflet aortic valve. Pulmonic Valve Normal pulmonic valve. Great Vessels Normal aortic root. The pulmonary artery is normal size. Inferior vena cava collapse with respiration. Pericardium/Pleural No pericardial effusion. Medication 22 gauge I.V. with prn adaptor inserted into left arm. Diluted definity 4ml given slow IV push to enhance endocardial definition. MMode/2D Measurements & Calculations LVIDd: 5.0 cm IVSd: 1.2 cm LVOT diam: 2.1 cm LVIDs: 3.2 cm LVPWd: 1.0 cm RVDd: 4.2 cm FS: 36.9 % LVOT area: 3.3 cm2 Ao root diam: 3.3 cm LAV(MOD-bp): 41.6 ml LVAd ap4: 38.7 cm2 LAV(MOD-bp) Indexed: 20.1 ml/m2 LVLd ap4: 9.7 cm LAV(MOD-sp2): 48.4 ml EDV(MOD-sp4): 125.1 ml LAV(MOD-sp4): 33.3 ml EDV(sp4-el): 130.7 ml LVAs ap4: 29.7 cm2 LVLs ap4: 9.3 cm ESV(MOD-sp4): 75.9 ml ESV(sp4-el): 80.1 ml EF(MOD-sp4): 39.3 % EF(sp4-el): 38.7 % LVAd ap2: 43.8 cm2 SV(MOD-sp4): 49.2 ml SV(MOD-sp2): 68.8 ml LVLd ap2: 9.9 cm EDV(MOD-sp2): 158.4 ml EDV(sp2-el): 163.6 ml LVAs ap2: 32.2 cm2 LVLs ap2: 9.6 cm ESV(MOD-sp2): 89.6 ml ESV(sp2-el): 91.4 ml EF(MOD-sp2): 43.4 % SV(sp4-el): 50.6 ml LA dimension(2D): 4.3 cm LA A4 area: 15.3 cm2 RA A4 area: 16.5 cm2 TAPSE: 2.2 cm Time Measurements MV dec time: 0.23 sec Doppler Measurements & Calculations MV E max nick: 69.0 cm/sec Lat Peak E' Nick: 7.4 cm/sec Med Peak E' Nick: 8.5 cm/sec MV A max nick: 77.3 cm/sec E/E' lat: 9.3 E/E' med: 8.1 MV E/A: 0.89 Ao V2 max: 121.4 cm/sec LV V1 max: 98.5 cm/sec MV dec slope: 302.8 cm/sec2 Ao max P.9 mmHg LV V1 max P.9 mmHg Ao V2 mean: 73.6 cm/sec LV V1 mean P.5 mmHg Ao mean P.8 mmHg LV V1 mean: 75.6 cm/sec Ao V2 VTI: 27.2 cm LV V1 VTI: 23.0 cm AV (velocity ratio): 0.85 GIULIANA(I,D): 2.8 cm2 GIULIANA(V,D): 2.7 cm2 SV(LVOT): 77.0 ml PA V2 max: 132.3 cm/sec PA max PG (full): 4.1 mmHg ECHO/Echo Complete W/ Contrast Interpretation Summary Normal LV size. The left ventricular ejection fraction is 35 %. Stage 1 diastolic dysfunction. Moderately severe segmental systolic dysfunction (see wall motion). [place] : Akinetic. There is moderate global hypokinesis of the left ventricle. Compared to previous study, the left ventricular systolic function has improved .. Ordering Physician: Nan Johnson Referring Physician: Cooper Cooley MD Performed By: Maricruz Latham RDCS and Student
== END | disposition home or self-care (01) ==
PROVIDERS: PCP Family Medicine; Referring Provider Physician Assistant Medical; Visit Provider Physician Assistant Medical
DX: I51.9 Heart disease, unspecified (principal)
CPT/HCPCS: 93306; Q9957; A4216; C8929

== ENCOUNTER 2023-08-26 08:00 | Outpatient (RCR) | payer OTHER, SELFPAY ==
[2023-08-01 01:12] VITALS: BP 108/50; BMI 33.6
--- NOTE | 2023-08-10 08:18 | CR.ITP_ITS ---
Exercise - Initial Assessment Physician Prescribed Exercise Modalities: Treadmill, Schwinn Airdyne AD-7 and SciFit Stepper Nutrition - Initial Assessment Weight Mgt (Other Care) Height: 5 ft 7 in Weight:: 206 lb BMI: 32.2 Psychosocial - Initial Assess Target Goals Target Goals Patient Health Questionnaire PHQ-9 Screening 60-Day Re-eval Assessment: 1. Little interest or pleasure in doing things: Not at all 2. Feeling down, depressed, or hopeless: Not at all 3. Trouble falling or staying asleep, or sleeping too much: Not at all 4. Feeling tired or having little energy: More than half the days 5. Poor appetite or overeating: Several days 6. Feeling bad about yourself -- or that you are a failure or have let yourself or your family down: Not at all 7. Trouble concentrating on things, such as reading the newspaper or watching television: Not at all 8. Moving or speaking so slowly that other people could have noticed. Or the opposite - being so fidgety or restless that you have been moving around a lot more than usual: Not at all 9. Thoughts that you would be better off , or of hurting yourself in some way: Not at all How difficult have these problems made it for you to do your work, take care of things at home, or get along with other people?: Not difficult at all Total Score: 3 Self-Efficacy 6-Item Scale 60-Day Re-eval Assessment: We would like to know how confident you are in doing certain activities. Please select your confidence level for: Fatigue Select Number: 7 Physical Discomfort or Pain Select Number: 10 Emotional Distress Select Number: 10 Other Symptoms or Health Problems Select Number: 8 Different Tasks and Activities Select Number: 8 Medication Select Number: 8 Total Score:: 8 Nutrition Survey Nutrition Survey Instructions Scoring Instructions Exercise - 30-day Assessment Physician Prescribed Exercise Modalities: Treadmill, Schwinn Airdyne AD-7 and SciFit Stepper Exercise - 60-day Assessment Visit Date of Eval: 08/10/23 Session #:: 22 Physician Prescribed Exercise Modalities: Treadmill, Schwinn Airdyne AD-7 and SciFit Stepper Frequency: 3x/week for 12 weeks [36 sessions] Intensity: 60-80% of age predicted maximum heart rate reserve Duration: 30 - 45 minutes Current METSs:: 4.5 Target Heart Rate:: 95-110 Current RPE:: 11-13 Maximum Excercise HR:: 91 Resting Blood Pressure: 110/62 Maximum Exercise Blood Pressure: 124/62 EKG Type: atrial sensed ventricular paced rhythm Outcomes & Goals Goals:: Verbalizes understanding of THR, RPE & goal METS by session 6, Documents in home exercise log/reports 30 min aerobic 5 day/wk by DC, Demonstrates accurate pulse taking by DC and Other additional outcome/goals: see below Intervention & Plan Exercise Program Goals: Instruct on personal THR & RPE, Instruct on MET level & personal MET goal, Show patient to take own pulse /validate performance until accurate, Instruct on home exercise and Other additional plan/int 30-day Reassessments 30 day Reassessments:: Met Physical Activity Home Exercise Physical Activity - Home Exercise: Safe Exercise, Warm-up, Self-monitoring, Cool-Down, Home Exercise > 30 min Daily and Sitting Time <3 hours/daily Outcomes & Goals Outcomes/Goals: Demonstrates correct Warm-up/exercise Cool-Down (S3) if = 2.5 METs, Verbalizes symptoms of exercise intolerance by Session 3 (S3), Demonstrate safe equipment use (S3) & follows exercise prescrition (6) and Other: See below Intervention & Plan Plan/Intervention: Instruct warm-up & cool-down if exercising at > 2 METs, Instruct on symptoms of exercise intolerance & actions to take, Instruct & monitor on saf, Assess intial functional capacity & safety risk and Other See below 30-day Reassessments 30 day Reassessments:: Met Exercise - 90-day Assessment Physician Prescribed Exercise Modalities: Treadmill, Schwinn Airdyne AD-7 and SciFit Stepper Exercise - Final/Discharge Physician Prescribed Exercise Modalities: Treadmill, Schwinn Airdyne AD-7 and SciFit Stepper Nutrition - 30-Day Assessment Weight Mgt (Other Care) Height: 5 ft 7 in Weight:: 206 lb BMI: 32.2 Nutrition - 60-Day Assessment Program Goals Nutrition Program Goals Patient has diagnosis of Hyperlipidemia (ICD E78)?: Yes Visit Date of Eval: 08/10/23 Session #:: 22 Cholesterol/Lipids (Other Core Measures) Determine presence & major risk factors that modify LDL goal: Cigarette smoking, Hypertension or hypertensive medication, Low HDL cholesterol <40 mg/dL*, Family history of premature CHD in Male < 55 years: female <65 yearsFa and Age men > 45 years; women >/= 55 years Outcomes/Goals: Pt IDs own risk factors & lifestyle modifications by Session 10, Verbalizes symptoms of angina & response by session 3., Pt independently manages and Other Additional Outcomes/Goals: Intervention/Plan: Advocate for lipid panel cholesterol medication if applicable, Instruct on personal lipid levels & lipid goals/NCEP guidelines, Instruct on cholesterol and Other additional plan/int 30-day Reassessments:: Met Diabetes (Other Core Measures) Diabetes Type: Not Applicable Weight Mgt (Other Care) Height: 5 ft 7 in Weight:: 206 lb BMI: 32.2 Diagnosis Overweight/Obesity BMI> 30% ICD-10 E66: Yes Diagnosis High BMI/Morbid Obesity BMI> 35% ICD-10 Z68: No Outcomes/Goals: Pt sets, maintains & shows weight loss goal & trend during rehab and Other additional outcomes/goals Intervention/Plan: Instruct on ideal BMI & set weight loss goal w/patient, Assist pt to ID & incorporate diet changes for weight loss by S9, Refer to Structured Weight Loss program as appropriate, Encourage goal of using 250- 300dcal per session for weight loss and Other additional plan/interventions 30 day Reassessments:: Progressing Reassessment Notes & Comments:: pt has lost weight Healthy Eating Habits Will attend diet classes:: Yes Outcomes/Goals:: Consume diet rich in vegs,fruits,whole grain/high fiber,fish,lean meat, Limit sat/trans fats,cholesterol & added salts & sugars and Other additional outcome/goals: Intervention/Plan:: Assess current eating habits and Other Additional plan/interventions 30-day Reassessments:: Met Education Gave educational materials for:: Signs & symptoms of hypoglycemia, Signs & symptoms of hyperglycemia, Relate diabetes to coronary artery disease and Healthy eating Core - 60-Day Assessment Visit Date of Eval: 08/10/23 Session #:: 22 Medication Compliance Preventative Medication(s):: Aspirin, Ticagrelor/P2Y12 inhibitor, Statin/lipid and Beta laura H/O mental health issues: depression, anxiety, or addiction?: No Doesn?t believe in the benefits of treatment?: No Believes medications are unnecessary or harmful?: No Has a concern about medication side effects?: No Expresses concern over the cost of medications?: No Outcomes/Goals: Verbalizes medications,desired effect & common side effects @ DC, Pt self-reports following medication regimen, Keeps card in wallet w/medications listed by DC and Other additional outcome/goals: Interventions/plans: Instruct on medication effects & side effects, Review medication list w/patient every two weeks, Instruct importance of taking meds as ordered & assist problem solving and Other additional 30-day Reassessments:: Met Tobacco Use Tobacco Use: Chew Do you use smokeless tobacco?: Yes 30-day Reassessments:: Progressing Hypertension Hypertension Diagnosis:: Hypertension ICD-10 I10 Resting Blood Pressure:: 110/62 [place] [employer] Hypertension Guidelines Peak Exercise Blood Pressure:: 124/62 Outcomes/Goals: Able to verbalize/achieve optimal blood pressure <130/80, Incorporates diet changes & exercise for blood pressure control by DC and Other additional outcomes/goals Interventions/plan: Instruct on optimal blood pressure, hypertension & medications, Instruct on effects of sodium, alcohol, stress, exercise &hypertension and Other additional plan/interventions 30 day Reassessments:: Met Tobacco Cessation Referral Smoking Cessation Referral:: No Individual Education/Counseling:: No Education Schedule Given:: Yes Psychosocial - 30-Day Assess Target Goals Target Goals Outcomes/Goals: See list Psychosocial Outcomes/Goals:: ID's personal stressors & 2 strategies to manage stress by discharge and Other Additional outcome/goals: Psychosocial - 60-Day Assess VIsit Date of Eval: 08/10/23 Session #:: 22 History of previous Mental disease:: No Target Goals Target Goals Outcomes/Goals: See list Psychosocial Outcomes/Goals:: ID's personal stressors & 2 strategies to manage stress by discharge and Other Additional outcome/goals: Intervention/Plan: See List Interventions/Plan:: Assess stressors,coping strategies & signs of derpression on admission, Instruct/assist pt to develop coping & personal stress Mgt strategies, Refer to Behavioral Health if appropriate, Refer to Physician if appropriate, Instruct patient to recognize signs & symptoms of depression, Instruct patient to recog and Other additional plan/intervention 30-day Reassessments: 30 day Reassessments:: Met Psychosocial - 90-Day Assess Target Goals Target Goals Psychosocial - Final Assessmen Target Goals Target Goals Nutrition - 90-Day Assessment Weight Mgt (Other Care) Height: 5 ft 7 in Weight:: 206 lb BMI: 32.2 Nutrition - Final Assessment Weight Mgt (Other Care) Height: 5 ft 7 in Weight:: 206 lb BMI: 32.2
[2023-08-10 08:28] VITALS: BP 110/62; BMI 32.2
== END 2023-08-30 23:59 ==
LOC: CR 08:00
PROVIDERS: PCP Family Medicine; Referring Provider Internal Medicine Cardiovascular Disease; Visit Provider Internal Medicine Cardiovascular Disease
DX: I21.4 Non-ST elevation (NSTEMI) myocardial infarction (principal); Z95.5 Presence of coronary angioplasty implant and graft
CPT/HCPCS: 93798

== ENCOUNTER 2023-09-21 08:00 | Outpatient (RCR) | payer OTHER, SELFPAY ==
[2023-08-31 00:37] VITALS: BP 108/50; BP 110/62; BMI 33.6
--- NOTE | 2023-09-09 04:57 | CR.ITP_ITS ---
Exercise - Initial Assessment Physician Prescribed Exercise Modalities: Treadmill, Schwinn Airdyne AD-7 and SciFit Stepper Nutrition - Initial Assessment Weight Mgt (Other Care) Height: 5 ft 7 in Weight:: 203 lb BMI: 31.8 Psychosocial - Initial Assess Target Goals Target Goals Referral to Behavioral Health PS - Interventions: Yes: Attend Stress Management Classes and No: Referral to Behavioral Health if PHQ-9 score >9:, No: [facility]erral to [facility] and No: Referral to Physician if PHQ-9 if score is 5-9: Patient Health Questionnaire PHQ-9 Screening 90-Day Re-eval Assessment: 1. Little interest or pleasure in doing things: Not at all 2. Feeling down, depressed, or hopeless: Not at all 3. Trouble falling or staying asleep, or sleeping too much: Not at all 4. Feeling tired or having little energy: Several days 5. Poor appetite or overeating: Several days 6. Feeling bad about yourself -- or that you are a failure or have let yourself or your family down: Not at all 7. Trouble concentrating on things, such as reading the newspaper or watching television: Not at all 8. Moving or speaking so slowly that other people could have noticed. Or the opposite - being so fidgety or restless that you have been moving around a lot more than usual: Not at all 9. Thoughts that you would be better off , or of hurting yourself in some way: Not at all How difficult have these problems made it for you to do your work, take care of things at home, or get along with other people?: Not difficult at all Total Score: 2 Self-Efficacy 6-Item Scale 90-Day Re-eval Assessment: We would like to know how confident you are in doing certain activities. Please select your confidence level for: Fatigue Select Number: 9 Physical Discomfort or Pain Select Number: 10 Emotional Distress Select Number: 10 Other Symptoms or Health Problems Select Number: 9 Different Tasks and Activities Select Number: 9 Medication Select Number: 10 Total Score:: 9 Nutrition Survey Nutrition Survey Instructions Scoring Instructions Exercise - 30-day Assessment Physician Prescribed Exercise Modalities: Treadmill, Schwinn Airdyne AD-7 and SciFit Stepper Exercise - 60-day Assessment Physician Prescribed Exercise Modalities: Treadmill, Schwinn Airdyne AD-7 and SciFit Stepper Exercise - 90-day Assessment Visit Date of Eval: 09/09/23 Session #:: 29 Comments:: Patient has missed 8 scheduled sessions to date. Physician Prescribed Exercise Modalities: Treadmill, Schwinn Airdyne AD-7 and SciFit Stepper Frequency: 3x/week for 12 weeks [36 sessions] Intensity: 60-80% of age predicted maximum heart rate reserve Duration: 30 - 45 minutes Current METSs:: 5.5 Target Heart Rate:: 95-110 Current RPE:: 13 Maximum Excercise HR:: 102 Resting Blood Pressure: 120/52 Maximum Exercise Blood Pressure: 148/64 EKG Type: Atrial sensed ventricular paced rhythm. Current Physical Activity or Exercising minutes: 38:32 Outcomes & Goals Goals:: Verbalizes understanding of THR, RPE & goal METS by session 6, Documents in home exercise log/reports 30 min aerobic 5 day/wk by DC and Demonstrates accurate pulse taking by DC Intervention & Plan Exercise Program Goals: Instruct on personal THR & RPE, Instruct on MET level & personal MET goal, Show patient to take own pulse /validate performance until accurate and Instruct on home exercise 30-day Reassessments 30 day Reassessments:: Met Physical Activity Home Exercise Physical Activity - Home Exercise: Safe Exercise, Warm-up, Self-monitoring, Cool-Down, Home Exercise > 30 min Daily and Sitting Time <3 hours/daily Outcomes & Goals Outcomes/Goals: Demonstrates correct Warm-up/exercise Cool-Down (S3) if = 2.5 METs, Verbalizes symptoms of exercise intolerance by Session 3 (S3) and Demonstrate safe equipment use (S3) & follows exercise prescrition (6) Intervention & Plan Plan/Intervention: Instruct warm-up & cool-down if exercising at > 2 METs, Instruct on symptoms of exercise intolerance & actions to take, Instruct & monitor on saf and Assess intial functional capacity & safety risk 30-day Reassessments 30 day Reassessments:: Met Exercise - Final/Discharge Physician Prescribed Exercise Modalities: Treadmill, Schwinn Airdyne AD-7 and SciFit Stepper Nutrition - 30-Day Assessment Weight Mgt (Other Care) Height: 5 ft 7 in Weight:: 203 lb BMI: 31.8 Nutrition - 60-Day Assessment Weight Mgt (Other Care) Height: 5 ft 7 in Weight:: 203 lb BMI: 31.8 Core - 90 Day Assessment Visit Date of Eval: 09/09/23 Session #:: 29 Medication Compliance Preventative Medication(s):: Aspirin, Ticagrelor/P2Y12 inhibitor, Statin/lipid and Beta laura H/O mental health issues: depression, anxiety, or addiction?: No Doesn?t believe in the benefits of treatment?: No Believes medications are unnecessary or harmful?: No Has a concern about medication side effects?: No Expresses concern over the cost of medications?: No Outcomes/Goals: Verbalizes medications,desired effect & common side effects @ DC, Pt self-reports following medication regimen and Keeps card in wallet w/medications listed by DC Interventions/plans: Instruct on medication effects & side effects and Instruct importance of taking meds as ordered & assist problem solving 30-day Reassessments:: Met Tobacco Use Tobacco Use: Non-smoker Hypertension Hypertension Diagnosis:: Hypertension ICD-10 I10 Resting Blood Pressure:: 120/52 [place] [employer] Hypertension Guidelines Peak Exercise Blood Pressure:: 148/64 Outcomes/Goals: Able to verbalize/achieve optimal blood pressure <130/80 and Incorporates diet changes & exercise for blood pressure control by DC Interventions/plan: Instruct on optimal blood pressure, hypertension & medications and Instruct on effects of sodium, alcohol, stress, exercise &hypertension 30 day Reassessments:: Met Tobacco Cessation Referral Smoking Cessation Referral:: No Individual Education/Counseling:: No Education Schedule Given:: Yes Psychosocial - 30-Day Assess Target Goals Target Goals Referral to Behavioral Health PS - Interventions: Yes: Attend Stress Management Classes and No: Referral to Behavioral Health if PHQ-9 score >9:, No: [facility] and No: Referral to Physician if PHQ-9 if score is 5-9: Psychosocial - 60-Day Assess Target Goals Target Goals Referral to Behavioral Health PS - Interventions: Yes: Attend Stress Management Classes and No: Referral to Behavioral Health if PHQ-9 score >9:, No: Referral to [facility] and No: Referral to Physician if PHQ-9 if score is 5-9: Psychosocial - 90-Day Assess VIsit Date of Eval: 09/09/23 Session #:: 29 Not Applicable: Yes History of previous Mental disease:: No Target Goals Target Goals Psychosocial Test Tool Used:: PHQ-9 Questionnaire phq-9 Severity Referral to Behavioral Health PS - Interventions: Yes: Attend Stress Management Classes and No: Referral to Behavioral Health if PHQ-9 score >9:, No: Referral to [facility] and No: Referral to Physician if PHQ-9 if score is 5-9: Outcomes/Goals: See list Psychosocial Outcomes/Goals:: ID's personal stressors & 2 strategies to manage stress by discharge Intervention/Plan: See List Interventions/Plan:: Instruct/assist pt to develop coping & personal stress Mgt strategies, Instruct patient to recognize signs & symptoms of depression and Instruct patient to recog 30-day Reassessments: 30 day Reassessments:: Met Psychosocial - Final Assessmen Target Goals Target Goals Referral to Behavioral Health PS - Interventions: Yes: Attend Stress Management Classes and No: Referral to Behavioral Health if PHQ-9 score >9:, No: Referral to [facility] and No: Referral to Physician if PHQ-9 if score is 5-9: Nutrition - 90-Day Assessment Program Goals Nutrition Program Goals Patient has diagnosis of Hyperlipidemia (ICD E78)?: Yes Visit Date of Eval: 09/09/23 Session #:: 29 Cholesterol/Lipids (Other Core Measures) Determine presence & major risk factors that modify LDL goal: Hypertension or hypertensive medication and Age men > 45 years; women >/= 55 years Outcomes/Goals: Pt IDs own risk factors & lifestyle modifications by Session 10, Verbalizes symptoms of angina & response by session 3. and Pt independently manages Intervention/Plan: Instruct on personal lipid levels & lipid goals/NCEP guidelines and Instruct on cholesterol Referral to dietitian:: No (Patient apparently not interested, he has not returned call from [facility] 30-day Reassessments:: Not Met Diabetes (Other Core Measures) Diabetes Type: Not Applicable Weight Mgt (Other Care) Not Applicable: No Height: 5 ft 7 in Weight:: 203 lb BMI: 31.8 Diagnosis Overweight/Obesity BMI> 30% ICD-10 E66: Yes Diagnosis High BMI/Morbid Obesity BMI> 35% ICD-10 Z68: No Outcomes/Goals: Pt sets, maintains & shows weight loss goal & trend during rehab Intervention/Plan: Instruct on ideal BMI & set weight loss goal w/patient, Assist pt to ID & incorporate diet changes for weight loss by S9 and Encourage goal of using 250-300dcal per session for weight loss 30 day Reassessments:: Not Met Reassessment Notes & Comments:: Patient referred to [facility] but has not ret urned their calls. Healthy Eating Habits Will attend diet classes:: Yes Outcomes/Goals:: Consume diet rich in vegs,fruits,whole grain/high fiber,fish,lean meat and Limit sat/trans fats,cholesterol & added salts & sugars Intervention/Plan:: Assess current eating habits 30-day Reassessments:: Progressing Education Gave educational materials for:: Healthy eating Nutrition - Final Assessment Weight Mgt (Other Care) Height: 5 ft 7 in Weight:: 203 lb BMI: 31.8
[2023-09-09 05:00] VITALS: BP 120/52
[2023-09-09 05:06] VITALS: BP 120/52; BMI 31.8
== END 2023-09-30 23:59 ==
LOC: CR 08:00
PROVIDERS: PCP Family Medicine; Referring Provider Internal Medicine Cardiovascular Disease; Visit Provider Internal Medicine Cardiovascular Disease
DX: I21.4 Non-ST elevation (NSTEMI) myocardial infarction (principal); Z95.5 Presence of coronary angioplasty implant and graft
CPT/HCPCS: 93798

== ENCOUNTER → 2024-02-10 | Outpatient (CLI) | payer OTHER, SELFPAY ==
[2023-12-03 13:46] VITALS: BMI 31.8
--- NOTE | 2024-02-10 11:47 | RAD_ITS ---
STUDY: X-RAY - THORACIC SPINE REASON FOR EXAM: Male, 73 years old. pain. L Thoracic T10 area TECHNIQUE: 3 view(s) of the thoracic spine were obtained. COMPARISON: None. FINDINGS: Normal kyphosis of the thoracic spine. There is no substantial scoliosis. There is multilevel endplate spondylosis of the thoracic vertebrae. There is mild multilevel disc space narrowing of the thoracic spine. No visualized acute fracture or compression deformity. No aggressive abnormalities seen. Left chest cardiac device with right heart leads present. The soft tissue structures are unremarkable. RAD/Thoracic Spine 2 Views IMPRESSION: 1. Degenerative changes of the thoracic spine. Electronically Signed: Rachid Encarnacion MD at 16:09 EST ,
== END | disposition home or self-care (01) ==
PROVIDERS: PCP Family Medicine; Referring Provider Family Medicine; Visit Provider Family Medicine
DX: M54.6 Pain in thoracic spine (principal)
CPT/HCPCS: 72070

== ENCOUNTER → 2024-02-11 | Outpatient (CLI) | payer OTHER, SELFPAY ==
[2023-12-03 13:46] VITALS: BMI 31.8
[2024-02-11 10:21] LABS: Hematocrit 43.2 % (40-54); Hemoglobin 14.6 g/dL (13.0-16.5); Mean Corp Hgb Conc 33.8 g/dL (32-36); Mean Corpuscular Hgb 32.6 pg (27.0-32.0); Mean Corpuscular Volume 96.4 fL (80-94); Mean Platelet Vol. 10.7 fl (6.2-12.0); Platelet Count 200 K/mm3 (150-450); RBC Distribution Width CV 14.3 % (11.6-14.6); Red Blood Count 4.48 M/mm3 (4.6-6.2); White Blood Count 6.7 K/mm3 (4.4-11.0)
[2024-02-11 11:13] LABS: Vitamin B12 648 pg/mL (211-911); Vitamin D,25 Hydroxy 37.3 ng/mL
[2024-02-11 11:18] LABS: AST(SGOT) 12 U/L (15-37); Alanine Aminotransfer ALT/SGPT 19 U/L (16-61); Albumin, Serum 3.5 g/dL (3.2-5.0); Alkaline Phosphatase 61 U/L (45-117); Anion Gap 7 (5-15); BUN 22 mg/dL (7-18); BUN/Creat Ratio 20.2 RATIO (10-20); Calcium,Total 8.8 mg/dL (8.5-10.1); Chloride 106 mmol/L (98-107); Cholesterol 145 mg/dL (200); Creatinine, Serum 1.09 mg/dL (0.70-1.30); EST Glomerular Filtration Rate 70 mL/min (>60); Est Glom Filt Rate - Afr Amer 85 mL/min (>60); Free T3 2.5 pg/mL (2.18-3.98); Globulin 3.4 g/dL (2.2-4.2); Glucose 88 mg/dL (74-106); High Density Lipoprotein 50 mg/dL; PSA,Total- Diagnostic 2.08 ng/mL (0.0-4.0); Potassium 3.9 mmol/L (3.5-5.1); Protein, Total 6.9 g/dL (6.4-8.2); Sodium Level 139 mmol/L (136-145); Triglycerides 139 mg/dL; Very Low Density Lipoprotein 28 mg/dL (5-40)
[2024-02-17 10:08] LABS: Testosterone, % Free 2.26 % (1.50-4.20); Testosterone, Free 16.43 ng/dL (5.00-21.00); Testosterone, Total 727 ng/dL (264-916); Thyroid Peroxidase AB < 9 IU/mL (0-34)
== END | disposition home or self-care (01) ==
PROVIDERS: PCP Family Medicine
DX: R68.82 Decreased libido (principal); E07.9 Disorder of thyroid, unspecified; E29.1 Testicular hypofunction; R53.83 Other fatigue; E55.9 Vitamin D deficiency, unspecified; I25.10 Atherosclerotic heart disease of native coronary artery without angina pectoris
CPT/HCPCS: 36415; 80053; 80061; 82306; 82607; 84153; 84402; 84403; 84439; 84443; 84481; 85027; 86376

== ENCOUNTER → 2024-04-22 | Outpatient (CLI) | payer OTHER, SELFPAY ==
[2023-12-03 13:46] VITALS: BMI 31.8
[2024-04-22 15:29] LABS: Absolute Lymphocyte Count 0.54 X10^3/uL (0.83-4.51); Absolute Neutrophil Count 4.2 X10^3/uL (2.0-7.7); Basophil# 0.05 X10^3/uL; Basophil% 0.8 % (0-1); Eosinophil# 0.46 X10^3/uL; Eosinophils% 7.4 % (0-5); Hematocrit 43.2 % (40-54); Hemoglobin 14.4 g/dL (13.0-16.5); Lymphocyte # 0.54 X10^3/ul (0.83-4.51); Lymphocyte % 8.7 % (19-41); Mean Corp Hgb Conc 33.3 g/dL (32-36); Mean Corpuscular Hgb 33.5 pg (27.0-32.0); Mean Corpuscular Volume 100.5 fL (80-94); Mean Platelet Vol. 10.5 fl (6.2-12.0); Monocyte# 0.95 X10^3/uL; Monocyte% 15.2 % (0-10); NRBC Flagged by Analyzer 0 % (0-5); Neutrophil % 67.4 % (47-70); POSITIVE DIFFERENTIAL YES; Platelet Count 204 K/mm3 (150-450); RBC Distribution Width CV 13.2 % (11.6-14.6); RBC Distribution Width SD 49.1 fl (35.1-43.9); White Blood Count 6.2 K/mm3 (4.4-11.0)
[2024-04-22 16:30] LABS: BNP,B-Type NATRIURETIC PEPTIDE 54.6 pg/mL (0-100)
[2024-04-22 18:16] LABS: ALB/GLOB Ratio 1.1 RATIO (0.9-2.4); AST(SGOT) 14 U/L (15-37); Alanine Aminotransfer ALT/SGPT 25 U/L (16-61); Albumin, Serum 3.7 g/dL (3.2-5.0); Alkaline Phosphatase 65 U/L (45-117); Anion Gap 6 (5-15); BUN 22 mg/dL (7-18); BUN/Creat Ratio 23.4 RATIO (10-20); Calcium,Total 9.1 mg/dL (8.5-10.1); Chloride 110 mmol/L (98-107); Creatinine, Serum 0.94 mg/dL (0.70-1.30); EST Glomerular Filtration Rate 83 mL/min (>60); Est Glom Filt Rate - Afr Amer 101 mL/min (>60); Globulin 3.4 g/dL (2.2-4.2); Glucose 80 mg/dL (74-106); Potassium 4.2 mmol/L (3.5-5.1); Protein, Total 7.1 g/dL (6.4-8.2); Sodium Level 140 mmol/L (136-145)
== END | disposition home or self-care (01) ==
LOC: MTLAB 12:54
PROVIDERS: PCP Family Medicine; Referring Provider Family Medicine; Visit Provider Family Medicine
DX: J06.9 Acute upper respiratory infection, unspecified (principal); I50.9 Heart failure, unspecified
CPT/HCPCS: 36415; 80053; 83880; 85025; 86141

== ENCOUNTER → 2024-05-27 | Outpatient (CLI) | payer OTHER, SELFPAY ==
[2023-12-03 13:46] VITALS: BMI 31.8
--- NOTE | 2024-05-27 09:03 | RAD_ITS ---
PROCEDURE: CHEST PA AND LATERAL 05/27/2024 REASON FOR EXAM: WHEEZING, COUGH TECHNIQUE: Frontal and lateral views of the chest. COMPARISON: 04/21/2023 FINDINGS: The lungs are clear. No pleural effusion or pneumothorax. The cardiomediastinal silhouette is normal in size. There is a left chest dual lead ICD. No acute osseous or soft tissue abnormality. RAD/Chest PA and Lateral IMPRESSION: No acute cardiopulmonary process. Reading Location: [facility]
== END | disposition home or self-care (01) ==
LOC: MTRAD 08:55
PROVIDERS: PCP Family Medicine; Referring Provider Family Medicine; Visit Provider Family Medicine
DX: J45.909 Unspecified asthma, uncomplicated (principal)
CPT/HCPCS: 71046

== ENCOUNTER → 2024-12-22 | Outpatient (CLI) | payer MEDICARE, SELFPAY ==
[2023-12-03 13:46] VITALS: BMI 31.8
--- NOTE | 2024-12-22 14:12 | RAD_ITS ---
PROCEDURE: HIP, UNI W/ PELVIS 2-3 VIEWS 12/22/2024 REASON FOR EXAM: L HIP PAIN TECHNIQUE: Procedure Code: RADHP Modality: DX Procedure: HIP, UNI W/ PELVIS 2-3 VIEWS Laterality: Left COMPARISON: None FINDINGS: The bony pelvis is intact. The SI joints are normal. There is no significant degenerative disc disease, L3-4 through L5-S1. There are no soft tissue abnormalities. AP view of the right hip demonstrates no evidence of fracture or dislocation. There is mild arthritis of the right hip, with asymmetric joint space narrowing. AP and lateral views of the left hip demonstrate no evidence of fracture or dislocation. There is mild arthritis of the left hip, with asymmetric joint space narrowing. There are vascular calcifications in the left thigh. RAD/HIP, UNI W/ Pelvis 2-3 Views IMPRESSION: Mild arthritis of the left hip. Other findings as noted. Reading Location: [place] [id number]
--- NOTE | 2024-12-22 14:12 | RAD_ITS ---
PROCEDURE: L/S SPINE W BEND MIN 6 VW 12/22/2024 REASON FOR EXAM: PAIN TECHNIQUE: Procedure Code: [id number] Modality: DX Procedure: L/S SPINE W BEND MIN 6 VW COMPARISON: None FINDINGS: There is grade 1 spondylolisthesis at L4-5, 0.6 cm with flexion, 0.3 cm with extension. There is loss of disc height from T12-L3 and from L4-S1. There is moderate facet sclerosis. Vertebral body height is maintained. There is dextrocurvature of the lumbar region with less than 10 degrees of variance, which can indicate spasm. Osteopenia is noted. RAD/L/S Spine w Bend Min 6 Vw IMPRESSION: There is grade 1 spondylolisthesis at L4-5, 0.6 cm with flexion, 0.3 cm with ex tension. There is loss of disc height from T12-L3 and from L4-S1. There is dextrocurvature of the lumbar region with less than 10 degrees of vari ance, which can indicate spasm. Reading Location: [facility]
== END | disposition home or self-care (01) ==
LOC: MTRAD 14:00
PROVIDERS: PCP Family Medicine; Referring Provider Family Medicine; Visit Provider Family Medicine
DX: M51.369 Other intervertebral disc degeneration, lumbar region without mention of lumbar back pain or lower extremity pain (principal); M25.552 Pain in left hip
CPT/HCPCS: 72114; 73502

== ENCOUNTER → 2024-12-26 | Outpatient (CLI) | payer MEDICARE, SELFPAY ==
[2023-12-03 13:46] VITALS: BMI 31.8
[2024-12-26 10:21] LABS: Hematocrit 39.7 % (40-54); Hemoglobin 13.3 g/dL (13.0-16.5); Mean Corp Hgb Conc 33.5 g/dL (32-36); Mean Corpuscular Volume 98.3 fL (80-94); Mean Platelet Vol. 10.7 fl (6.2-12.0); Platelet Count 196 K/mm3 (150-450); RBC Distribution Width CV 13.3 % (11.6-14.6); RBC Distribution Width SD 48.4 fl (35.1-43.9); Red Blood Count 4.04 M/mm3 (4.6-6.2); White Blood Count 7.6 K/mm3 (4.4-11.0)
[2024-12-26 10:55] LABS: AST(SGOT) 17 U/L (<=37); Alanine Aminotransfer ALT/SGPT 17 U/L (<=46); Albumin, Serum 4.1 g/dL (3.4-4.8); Alkaline Phosphatase 62 U/L (40-129); Anion Gap 9 (5-15); BUN 23 mg/dL (4-19); BUN/Creat Ratio 20.4 RATIO (10-20); Calcium,Total 9.1 mg/dL (7.6-11.0); Carbon Dioxide 24.9 mmol/L (21.0-32.0); Chloride 106 mmol/L (98-108); Cholesterol 139 mg/dL (<=200); Globulin 2.4 g/dL (2.2-4.2); Glucose 92 mg/dL (70-99); Low Density Lipoprotein Calc. 71 mg/dL; Potassium 5.5 mmol/L (3.3-5.1); Triglycerides 84 mg/dL; Very Low Density Lipoprotein 17 mg/dL (5-40); cholesterol:hdl ratio screen 2.69
== END | disposition home or self-care (01) ==
LOC: MTLAB 09:12
PROVIDERS: PCP Family Medicine; Referring Provider Family Medicine; Visit Provider Family Medicine
DX: I25.10 Atherosclerotic heart disease of native coronary artery without angina pectoris (principal)
CPT/HCPCS: 36415; 80053; 80061; 84443; 85027

== ENCOUNTER → 2025-01-16 | Outpatient (CLI) | payer MEDICARE, SELFPAY ==
[2023-12-03 13:46] VITALS: BMI 31.8
[2025-01-16 11:07] LABS: BUN 26 mg/dL (4-19); Glucose 94 mg/dL (70-99)
[2025-01-16 11:08] LABS: Anion Gap 10 (5-15); BUN/Creat Ratio 22.7 RATIO (10-20); Calcium,Total 8.9 mg/dL (7.6-11.0); Carbon Dioxide 22.8 mmol/L (21.0-32.0); Chloride 107 mmol/L (98-108); Potassium 4.2 mmol/L (3.3-5.1)
== END | disposition home or self-care (01) ==
LOC: MTLAB 09:00
PROVIDERS: PCP Family Medicine; Referring Provider Family Medicine; Visit Provider Family Medicine
DX: E87.5 Hyperkalemia (principal)
CPT/HCPCS: 36415; 80048

== ENCOUNTER 2025-01-31 14:00 | Outpatient (RCR) | payer MEDICARE, SELFPAY ==
[2023-12-03 13:46] VITALS: BMI 31.8
--- NOTE | 2025-01-17 13:53 | HP.PTEVAL_ITS ---
Patient's Visit Information Visit Information Visit Information: CLIFTON DAVIS is a 74 year old M referred to Physical Therapy by Dr. Cooper Cooley MD with a diagnosis of DDD in L/S. Date of Evaluation: 01/17/25 Physical Therapist: Cash Bergman, PT, ATC Visit Plan Frequency: 1x/Week Duration: 2 Weeks Plan: Pt was instructed on SKTC/DKTC stretching for HEP. Issue and instruct pt on next PT visit on a HEP of core strengthening ex's. Then consider following up in one month. Subjective Subjective: Pt reports having LBP for greater than one year. Pt notes he had x- rays at that time that revealed degenerative changes throughout his lumbar spine. Pt notes he has also intermittently had L LE radiculopathy in the past. Pt reports his pain has actually gotten better over the last 3 weeks. Pt denies any tingling or numbness in L LE at this time. 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 However, he often experiences pain while he is trying to go to sleep. Pt notes prolonged sitting, like when he drove to [employer] a while ago, tends to increase his pain the most. Pt reports he is able to perform most of his daily activities at this time. 0/10 pain while sitting here at rest, 5/10 pain at worst. Pain LBP: Pain Intensity (Out of 10): 0 Pain Intensity Range: 5 Objective Objective: Neuro: B LE sensation is WNL to light touch MMT: B LE's are equal and strong throughout ROM: Pt is moderately limited with L/S extension. B SB is minimally limited. flexion is WFL. Repeated movements: RFIS 10x2 decreased pain. KALPESH 10x2 NE. SKTC/DKTC 10 sec x 3 ea Special tests: all neg for the L hip. Balance/Special Test Scores Oswestry Low Back Score: 13 Goals Goal 1:: Pt will be I with HEP Goal Time Frame: 2 Weeks Rehabilitation Potential Physical Therapy Diagnosis: Pt has LBP and limited L/S ROM secondary to DDD Rehabilitation Potential: Good Anticipated Interventions Patient/Client Instruction: Educate patient on: Condition and Plan of Care For the Purpose of:: To improve self management Therapeutic Exercise to Include: Strength training, Endurance training, Body mechanics, Postural training and Dynamic Lumbar Stabilization For the Purpose of:: To decrease pain, To increase ROM and To improve muscle performance and motor function Text: Thank you for the opportunity to evaluate your patient. For Medicare and Medicare HMO plans, please review the plan of care and approve it. It will need to be FAXED BACK to us at [phone] for Medicare purposes. For Medicare only, by signing this I certify the plan of care. Please let me know if there are questions or concerns regarding this plan of care. Physician Signature: Date:
--- NOTE | 2025-01-31 14:56 | HP.PTDCSUM ---
Discharge Summary D/C summary: It has been my pleasure to treat CLIFTON DAVIS referred by Dr. Cooper Cooley MD, with the diagnosis of DDD in L/S for a total of 2 visit(s). Discharge Date: Please see the following information for a summary of their discharge status. Subjective Subjective: This will be my last visit Pain LBP: Pain Intensity (Out of 10): 0 Objective Objective/Function: Pt is now I with HEP Goals Goal 1:: Pt will be I with HEP Goal Progress: Goal Met Plan Plan: Discharge to HEP D/C Information d/c sentence: If there are questions or concerns regarding this patient's physical therapy, please feel free to call me at [phone]. Thank you for the referral of this patient. Sincerely, Cash Bergman, PT, ATC Balance/Gait/Functional tests Balance/Special Test Scores Oswestry Low Back Score: 13
== END 2025-01-31 19:00 | disposition home or self-care (01) ==
LOC: PT 14:00
PROVIDERS: PCP Family Medicine; Referring Provider Family Medicine; Visit Provider Family Medicine
DX: M47.816 Spondylosis without myelopathy or radiculopathy, lumbar region (principal); M51.369 Other intervertebral disc degeneration, lumbar region without mention of lumbar back pain or lower extremity pain; M25.552 Pain in left hip
CPT/HCPCS: 97110; 97161